=== PATIENT | female | born 1960 | race Caucasian/White ===

== ENCOUNTER 2018-02-25 08:12 | Emergency (ER) | payer OTHER ==
--- NOTE | 2018-02-25 11:48 | EKG ---
Test Date: 2018-02-25 Test Time: 08:40:04 Plant Breeder Scientist: GREGORIO MEASUREMENT RESULTS: Intervals: Rate: 65 LA: 152 QRSD: 84 QT: 436 QTc: 453 [place]: P: 46 LA: 152 QRS: 26 T: 39 INTERPRETIVE STATEMENTS: Normal sinus rhythm Normal ECG No previous ECG available for comparison Electronically Signed On 02-25-18 11:46:24 CDT by Herbert Segura
--- NOTE | 2018-02-25 12:44 | ER ---
Nurse's Notes [facility] Name: Josie Lizarraga Age: 57 yrs Sex: Female : 1960 Arrival Date: 02/25/2018 Time: 08:14 Bed External Waiting Private MD: Diagnosis: Type 2 diabetes mellitus;Chronic combined systolic (congestive) and diastolic (congestive) heart failure;Encounter for medication refill Assessment: 02/25 14:46 Reassessment: See Down time paper charting. ED Course: 08:14 Patient arrived in ED. mr 08:16 Ilya Collins PA is PHCP. jr8 08:16 Manpreet Turcios MD is Attending Physician. jr8 08:52 X-ray completed. Portable x-ray completed in exam room. Patient tolerated procedure jb2 well. 10:39 Ivonne Jerome, RN is Primary Nurse. Administered Medications: No medications were administered Outcome: 12:44 Discharge ordered by MD. jr8 14:20 Patient left the ED. Signatures: Ivonne Jerome, RN NADIA Keira Garcia mr MelendezChristopher jb2 Jennie Santoyo RN RN Ilya Collins PA PA jr8
--- NOTE | 2018-02-25 13:07 | RAD REPORT ---
EXAM DESCRIPTION: RAD - Chest Single View - 02/25/2018 8:53 am CLINICAL HISTORY: Shortness of breath, pneumonia Due to hospital power failure overnight and morning imaging study reports were delayed. COMPARISON: None. TECHNIQUE: AP portable chest image was obtained 0846 hours . FINDINGS: Lungs are clear. Heart and vasculature are normal. No measurable pleural effusion and no p neumothorax. No gross bony abnormality seen. No acute aortic findings suspected. IMPRESSION: No acute cardiopulmonary process.
[2018-02-25 14:55] LABS: ALT/SGPT 52 U/L (12-78); AST/SGOT 24 U/L (15-37); Albumin 3.6 g/dL (3.4-5.0); Alkaline Phosphatase 79 U/L (45-117); BUN Blood Urea Nitrogen 19 mg/dL (7-18); Bicarbonate 27 mmol/L (21-32); Bilirubin Direct 0.2 mg/dL (0-0.2); Bilirubin Total 0.6 mg/dL (0.2-1.0); Glucose Level 133 mg/dL (74-106); NT PRO-BNP 576 pg/mL (<125); Potassium 3.9 mmol/L (3.5-5.1); Protein, Total 6.7 g/dL (6.4-8.2); Sodium Level 144 mmol/L (136-145); Troponin (Emerg Dept Use Only) < 0.02 ng/mL (0.0-0.045)
[2018-02-25 15:55] LABS: Urine Blood NEGATIVE (NEG); Urine Glucose NEGATIVE (NEG); Urine Protein TRACE (NEG); Urine Specific Gravity >1.030 (1.005-1.030); Urine pH 5.5 (5.0-7.0)
[2018-02-25 15:56] LABS: Absolute Lymphocytes (CBC) 1.5 K/uL (0.7-4.9); Absolute Monocytes 0.4 K/uL (0.1-1.3); Absolute Neutrophil 2.9 K/uL (1.8-8.0); Basophils % 1.2 % (0-1.3); Hematocrit 37.8 % (36.0-45.0); Lymphocytes % 27.9 % (15.3-44.8); MCV 86.6 fL (80-100); MPV 9.2 fL (7.6-11.3); Monocytes % 7.9 % (3.3-12.3); RBC Red Blood Cell Count 4.37 M/uL (3.86-4.86)
== END 2018-02-25 14:20 | disposition home or self-care (01) ==
LOC: ER 08:12
DX: Z76.0 Encounter for issue of repeat prescription (principal); E11.9 Type 2 diabetes mellitus without complications; I50.9 Heart failure, unspecified; I10 Essential (primary) hypertension; R60.0 Localized edema
CPT/HCPCS: 36415; 71045; 80048; 80076; 81003; 83880; 84484; 85025; 93005

== ENCOUNTER 2018-06-11 23:59 | Emergency (ER) | payer OTHER ==
--- NOTE | 2018-06-12 03:45 | EDPHYS ---
Physician Documentation [facility] Name: Josie Lizarraga Age: 58 yrs Sex: Female : 1960 Arrival Date: 06/12/2018 Time: 00:06 Bed 6 Private MD: ED Physician Gonzales Giordano HPI: 06/12 00:39 This 58 yrs old Female presents to ER via Ambulatory with complaints of jmm Numbness Of Arm, and fingers. 00:39 Onset: The symptoms/episode began/occurred gradually, 3 month(s) ago. This is a 58 year jmm old female with a history of hypothyroidism that presents to the ED with pain to her neck and her right arm beginning approx 3 months ago. Patient states her PCP ordered an US to rule out DVT which was negative. Patient denies chest pain or shortness of breath. . Historical: - Allergies: 00:28 Codeine; lp1 - Home Meds: 00:28 Potassium Chloride Oral [Active]; Vitamin D 5,000 units Oral twice a day [Active]; Fish lp1 Oil 500 mg oral cpDR twice a day [Active]; levothyroxine 75 mcg tab 1 tab once daily [Active]; losartan 100 mg oral tab 1 tab once daily [Active]; carvedilol 3.125 mg oral tab 1 tab 2 times per day [Active]; trazodone 50 mg Oral tab daily [Active]; furosemide 40 mg Oral tab 1 tab once daily [Active]; atorvastatin 40 mg oral tab 1 tab once daily [Active]; aspirin 81 mg Oral TbEC 1 tab once daily [Active]; amitriptyline 10 mg Oral tab daily [Active]; clopidogrel 75 mg oral tab 1 tab once daily [Active]; amlodipine 10 mg tab 1 tab once daily [Active]; paroxetine HCl 40 mg oral tab 1 tab once daily [Active]; Toujeo SoloStar 300 unit/mL (1.5 mL) subcutaneous inpn 110 unit nightly [Active]; Victoza 2-Beni 0.6 mg/0.1 mL (18 mg/3 mL) subcutaneous pnij 1.8 unit nightly [Active]; gabapentin 300 mg oral cap daily [Active]; - PMHx: 00:28 Hypothyroidism; Hypertension; Hyperlipidemia; Diabetes - IDDM; lp1 - PSHx: 00:28 Heart stents; Tubal ligation; toe amputation; lp1 - Immunization history:: Adult Immunizations up to date. - Social history:: Smoking status: Patient/guardian denies using tobacco. - Ebola Screening: : No symptoms or risks identified at this time. ROS: 00:39 Constitutional: Negative for fever, chills, and weight loss, Cardiovascular: Negative jmm for chest pain, palpitations, and edema, Respiratory: Negative for shortness of breath, cough, wheezing, and pleuritic chest pain. 00:39 Neck: Positive for pain at rest. 00:39 MS/extremity: Positive for pain, paresthesias. 00:39 All other systems are negative. Exam: 00:39 Constitutional: This is a well developed, well nourished patient who is awake, alert, jmm and in no acute distress. Head/Face: atraumatic. Eyes: EOMI, no conjunctival erythema appreciated ENT: Moist Mucus Membranes Neck: Trachea midline, Supple Chest/axilla: Normal chest wall appearance and motion. Cardiovascular: Regular rate and rhythm. No edema appreciated Respiratory: Normal respirations, no respiratory distress appreciated Abdomen/GI: Non distended, soft 00:39 Neck: painful rotation to the right. 00:39 Musculoskeletal/extremity: full radial pulse, full director of recruiting strength, compartments are soft, NVI. 00:39 Skin: Appearance: Color: normal in color. 00:39 Neuro: Orientation: is normal, Mentation: is normal, Memory: is normal. 00:39 Psych: Behavior/mood is pleasant, cooperative. Vital Signs: 00:21 BP 181 / 88; Pulse 84; Resp 18; Temp 97.6(O); Pulse Ox 98% on R/A; Weight 99.79 kg; lp1 Height 5 ft. 5 in. (165.10 cm); Pain 8/10; 04:02 BP 164 / 92; Pulse 81; Resp 18; Pulse Ox 98% on R/A; lp1 00:21 Body Mass Index 36.61 (99.79 kg, 165.10 cm) lp1 MDM: 00:17 Patient medically screened. david 02:56 Data reviewed: vital signs, nurses notes. Transition of care: After a detail discussion jm of the patient's case, care is transferred to Gonzales Giordano MD. ED course: PE findings concerning for cervical radiculopathy. Full director of recruiting strength. No neuro deficits. I do not suspect carotid dissection. Symptoms have been chronic. . 03:04 Transition of care: After a detail discussion of the patient's case, care is crystal transferred to Gonzales Giordano MD. 06/12 03:49 Order name: Glucose, Ancillary Testing EDMS 06/12 00:36 Order name: CT C Spine [facility] 06/12 03:05 Order name: EKG - Nurse/Tech; Complete Time: 03:30 david 06/12 03:42 Order name: Blood Glucose Level; Complete Time: 03:51 david Administered Medications: 03:53 Not Given (Route change): Decadron - Dexamethasone 10 mg IVP once lp1 03:57 Drug: Decadron 10 mg Route: IM; Site: left deltoid; ca1 04:05 Follow up: Response: No adverse reaction; Medication administered at discharge. lp1 03:58 Drug: TORadol 60 mg Route: IM; Site: right deltoid; ca1 04:05 Follow up: Response: Medication administered at discharge. lp1 Point of Care Testing: Blood Glucose: 03:51 Blood Glucose: 283 mg/dL; lp1 Ranges: Critical Glucose Levels:Adult <50 mg/dl or >400 mg/dl <40 mg/dl or >180 mg/dl Disposition: 07:35 Co-signature as Attending Physician, Gonzales Giordano MD I agree with the assessment and [facility] plan of care. Disposition: 06/12/18 03:44 Discharged to Home. Impression: Radiculopathy, cervical region, Essential (primary) hypertension, Type 2 diabetes mellitus. - Condition is Stable. - Discharge Instructions: Cervical Radiculopathy, Type 2 Diabetes Mellitus, Diagnosis, Adult, Hypertension, Hypertension, [id number], How to Take Your Blood Pressure, [id number], Type 2 Diabetes Mellitus, Diagnosis, Adult, [id number], Cervical Radiculopathy, Mnlc-[id number], Managing Your Hypertension, Radicular Pain, Type 2 Diabetes Mellitus, Self Care, Adult, Type 2 Diabetes Mellitus, Self Care, Adult, [id number]-[id number]. - Prescriptions for Medrol (Beni) 4 mg Oral Tablets, Dose Pack - take 1 tablet by ORAL route as directed - follow package instructions; 1 packet. Motrin IB 200 mg Oral Tablet - take 2 tablet by ORAL route every 6 hours As needed as needed with food; 30 tablet. - Medication Reconciliation Form, Thank You Letter, Antibiotic Education, Prescription Opioid Use form. - Follow up: Private Physician; When: 2 - 3 days; Reason: Recheck today's complaints, Continuance of care, Re-evaluation by your physician. - Problem is new. - Symptoms have improved. Signatures: Dispatcher [employer] EDMS Gonzales Giordano MD MD cha Mickail, Joel, PA PA jmm Pena, Laura, RN RN lp1 Jes Kiser RN RN ca1 Corrections: (The following items were deleted from the chart) 04:08 03:44 06/12/2018 03:44 Discharged to Home. Impression: Radiculopathy, cervical region; lp1 Essential (primary) hypertension; Type 2 diabetes mellitus. Condition is Stable. Forms are Medication Reconciliation Form, Thank You Letter, Antibiotic Education, Prescription Opioid Use. Follow up: Private Physician; When: 2 - 3 days; Reason: Recheck today's complaints, Continuance of care, Re-evaluation by your physician. Problem is new. Symptoms have improved. david
--- NOTE | 2018-06-12 03:45 | ER ---
Nurse's Notes [facility] Name: Josie Lizarraga Age: 58 yrs Sex: Female : 1960 Arrival Date: 06/12/2018 Time: 00:06 Bed 6 Private MD: Diagnosis: Radiculopathy, cervical region;Essential (primary) hypertension;Type 2 diabetes mellitus Presentation: 06/12 00:19 Presenting complaint: Patient states: Numbness and pain to right arm since March; lp1 States pain has been so severe that she has not been able to sleep in 3 days; States Ultrasound done in May, has not followed up with Neurology yet. Transition of care: patient was not received from another setting of care. Onset of symptoms was June 12, 2018. Risk Assessment: Do you want to hurt yourself or someone else? Patient reports no desire to harm self or others. Initial Sepsis Screen: Does the patient meet any 2 criteria? No. Patient's initial sepsis screen is negative. Does the patient have a suspected source of infection? No. Patient's initial sepsis screen is negative. Care prior to arrival: None. 00:19 Method Of Arrival: Ambulatory lp1 00:19 Acuity: FRACISCO 3 lp1 Historical: - Allergies: 00:28 Codeine; lp1 - Home Meds: 00:28 Potassium Chloride Oral [Active]; Vitamin D 5,000 units Oral twice a day [Active]; Fish lp1 Oil 500 mg oral cpDR twice a day [Active]; levothyroxine 75 mcg tab 1 tab once daily [Active]; losartan 100 mg oral tab 1 tab once daily [Active]; carvedilol 3.125 mg oral tab 1 tab 2 times per day [Active]; trazodone 50 mg Oral tab daily [Active]; furosemide 40 mg Oral tab 1 tab once daily [Active]; atorvastatin 40 mg oral tab 1 tab once daily [Active]; aspirin 81 mg Oral TbEC 1 tab once daily [Active]; amitriptyline 10 mg Oral tab daily [Active]; clopidogrel 75 mg oral tab 1 tab once daily [Active]; amlodipine 10 mg tab 1 tab once daily [Active]; paroxetine HCl 40 mg oral tab 1 tab once daily [Active]; Toujeo SoloStar 300 unit/mL (1.5 mL) subcutaneous inpn 110 unit nightly [Active]; Victoza 2-Beni 0.6 mg/0.1 mL (18 mg/3 mL) subcutaneous pnij 1.8 unit nightly [Active]; gabapentin 300 mg oral cap daily [Active]; - PMHx: 00:28 Hypothyroidism; Hypertension; Hyperlipidemia; Diabetes - IDDM; lp1 - PSHx: 00:28 Heart stents; Tubal ligation; toe amputation; lp1 - Immunization history:: Adult Immunizations up to date. - Social history:: Smoking status: Patient/guardian denies using tobacco. - Ebola Screening: : No symptoms or risks identified at this time. Screenin:30 Abuse screen: Denies threats or abuse. Denies injuries from another. Nutritional lp1 screening: No deficits noted. Tuberculosis screening: No symptoms or risk factors identified. Fall Risk None identified. Assessment: 00:28 General: Appears in no apparent distress. Behavior is appropriate for age. Pain: lp1 Complains of pain in right arm, posterior neck Pain currently is 8 out of 10 on a pain scale. Quality of pain is described as tingling. Neuro: Level of Consciousness is awake, alert, obeys commands, Oriented to person, place, time, situation, General Ii Farmworker are equal bilaterally Moves all extremities. Full function Gait is steady, Speech is normal, Facial symmetry appears normal, Tingling in right arm Numbness in right arm Reports numbness in right arm. Cardiovascular: Patient's skin is warm and dry. Respiratory: Respiratory effort is even, unlabored. GI: No deficits noted. : No deficits noted. EENT: No deficits noted. Derm: Skin is pink, warm \T\ dry. Musculoskeletal: Range of motion: intact in all extremities. 01:30 Reassessment: Patient appears in no apparent distress at this time. Patient and/or lp1 family updated on plan of care and expected duration. Pain level reassessed. Patient is alert, oriented x 3, equal unlabored respirations, skin warm/dry/pink. Patient aware of waiting for CT results. 03:30 Reassessment: Patient appears in no apparent distress at this time. Patient is alert, lp1 oriented x 3, equal unlabored respirations, skin warm/dry/pink. Patient aware of waiting for CT results;. Vital Signs: 00:21 BP 181 / 88; Pulse 84; Resp 18; Temp 97.6(O); Pulse Ox 98% on R/A; Weight 99.79 kg; lp1 Height 5 ft. 5 in. (165.10 cm); Pain 8/10; 04:02 BP 164 / 92; Pulse 81; Resp 18; Pulse Ox 98% on R/A; lp1 00:21 Body Mass Index 36.61 (99.79 kg, 165.10 cm) lp1 ED Course: 00:06 Patient arrived in ED. 00:13 Jasper Cantu PA is PHCP. [facility] 00:13 Gonzales Giordano MD is Attending Physician. [facility] 00:19 Kamla Quintanilla, RN is Primary Nurse. lp1 00:21 Triage completed. lp1 00:21 Arm band placed on left wrist. lp1 00:30 Patient has correct armband on for positive identification. lp1 01:17 CT C Spine In Process Unspecified. EDMS 01:24 CT completed. Patient tolerated procedure well. Patient moved to CT via wheelchair. Patient moved back from CT. 02:01 No provider procedures requiring assistance completed. Patient did not have IV access lp1 during this emergency room visit. Administered Medications: 03:53 Not Given (Route change): Decadron - Dexamethasone 10 mg IVP once lp1 03:57 Drug: Decadron 10 mg Route: IM; Site: left deltoid; ca1 04:05 Follow up: Response: No adverse reaction; Medication administered at discharge. lp1 03:58 Drug: TORadol 60 mg Route: IM; Site: right deltoid; ca1 04:05 Follow up: Response: Medication administered at discharge. lp1 Point of Care Testing: Blood Glucose: 03:51 Blood Glucose: 283 mg/dL; lp1 Ranges: Outcome: 03:44 Discharge ordered by . [facility] 04:08 Discharged to home ambulatory. lp1 04:08 Condition: good 04:08 Discharge instructions given to patient, Instructed on discharge instructions, follow up and referral plans. medication usage, Demonstrated understanding of instructions, follow-up care, medications, Prescriptions given X 2. 04:08 Patient left the ED. lp1 Signatures: Dispatcher [employer] EDMS Gonzales Giordano MD MD cha Mickail, Joel, PA PA [facility] Bobbi Jaquez Ervin Kamla Quintanilla, NADIA RN lp1 Acob, Jes, RN RN ca1
[2018-06-12] MEDS ORDERED: KETOROLAC 30 MG/ML INJ ONE (03:58)
[2018-06-12] MEDS ORDERED: DEXAMETHASONE 10 MG/ML VIAL ONE (03:58)
--- NOTE | 2018-06-12 08:20 | RAD REPORT ---
EXAM DESCRIPTION: CT - C Spine Wo Con - 06/12/2018 6:29 am CLINICAL HISTORY: Right arm numbness COMPARISON: None. TECHNIQUE: Computed axial tomography of the cervical spine were obtained with sagittal and coronal r econstruction images generated and reviewed. Preliminary report generated by virtual radiologic and [employer] prior to dictation All CT scans are performed using dose optimization technique as appropriate and may include automated exposure control or mA/KV adjustment according to patient size. FINDINGS: A cervical fracture is not seen. Disc bulge, facet hypertrophy and osteophytes C5-6 resulting in mild to moderate narrowing of the lef t neural foramina No dislocation Left carotid stent IMPRESSION: A cervical fracture is not seen. Spondylosis resulting in mild to moderate left foraminal stenosis at C5-6. If the patient continues have symptoms to suggest spinal cord/spinal canal pathology then MRI would b e recommended.
== END 2018-06-12 04:08 | disposition home or self-care (01) ==
LOC: ER 23:59
DX: M54.12 Radiculopathy, cervical region (principal); I10 Essential (primary) hypertension; E11.9 Type 2 diabetes mellitus without complications; E03.9 Hypothyroidism, unspecified; E78.5 Hyperlipidemia, unspecified; Z79.82 Long term (current) use of aspirin; Z79.4 Long term (current) use of insulin; Z88.5 Allergy status to narcotic agent; Z95.818 Presence of other cardiac implants and grafts
CPT/HCPCS: 72125; 82962; 96372; 99284; J1100

== ENCOUNTER 2018-06-12 06:38 | Emergency (ER) | payer OTHER ==
[2018-06-12] MEDS ORDERED: NA CHLORIDE 0.9% 1,000 ML ONE (07:13)
[2018-06-12] MEDS ORDERED: LORazepam 2 MG/ML VIAL ONE (07:13)
--- NOTE | 2018-06-12 08:26 | ER ---
Nurse's Notes [facility] Name: Josie Lizarraga Age: 58 yrs Sex: Female : 1960 Arrival Date: 06/12/2018 Time: 06:45 Bed 5 Private MD: Diagnosis: Adverse effect of steroids Presentation: 06/12 06:46 Presenting complaint: Patient states: "I think I'm having an allergic reaction to the lp1 meds you gave me"; States waking up from sleep with shortness of breath and heart pounding; received medications prior to discharge from ED visit this morning. Transition of care: patient was not received from another setting of care. Onset of symptoms was June 12, 2018 at 06:15. Risk Assessment: Do you want to hurt yourself or someone else? Patient reports no desire to harm self or others. Initial Sepsis Screen: Does the patient meet any 2 criteria? No. Patient's initial sepsis screen is negative. Does the patient have a suspected source of infection? No. Patient's initial sepsis screen is negative. Care prior to arrival: None. 06:46 Method Of Arrival: Wheelchair lp1 06:46 Acuity: FRACISCO 3 lp1 Triage Assessment: 06:55 General: Appears in no apparent distress. Behavior is anxious. Neuro: Level of lp1 Consciousness is awake, alert, obeys commands. Respiratory: Airway is patent Respiratory effort is even. Historical: - Allergies: 06:52 Codeine; lp1 - Home Meds: 06:52 amitriptyline 10 mg Oral tab daily [Active]; amlodipine 10 mg tab 1 tab once daily lp1 [Active]; aspirin 81 mg Oral TbEC 1 tab once daily [Active]; atorvastatin 40 mg Oral tab 1 tab once daily [Active]; carvedilol 3.125 mg Oral tab 1 tab 2 times per day [Active]; clopidogrel 75 mg Oral tab 1 tab once daily [Active]; Fish Oil 500 mg Oral cpDR twice a day [Active]; furosemide 40 mg Oral tab 1 tab once daily [Active]; gabapentin 300 mg Oral cap daily [Active]; levothyroxine 75 mcg tab 1 tab once daily [Active]; losartan 100 mg Oral tab 1 tab once daily [Active]; paroxetine HCl 40 mg Oral tab 1 tab once daily [Active]; Potassium Chloride Oral [Active]; Toujeo SoloStar 300 unit/mL (1.5 mL) subcutaneous inpn 110 unit nightly [Active]; trazodone 50 mg Oral tab daily [Active]; Victoza 2-Beni 0.6 mg/0.1 mL (18 mg/3 mL) subcutaneous pnij 1.8 unit nightly [Active]; Vitamin D 5,000 units Oral twice a day [Active]; - PMHx: 06:52 Diabetes - IDDM; Hyperlipidemia; Hypertension; Hypothyroidism; lp1 - PSHx: 06:52 Heart stents; Tubal ligation; toe amputation; lp1 - Immunization history:: Adult Immunizations up to date. - Social history:: Smoking status: Patient/guardian denies using tobacco. - Ebola Screening: : No symptoms or risks identified at this time. Screenin:53 Abuse screen: Denies threats or abuse. Denies injuries from another. Nutritional lp1 screening: No deficits noted. Tuberculosis screening: No symptoms or risk factors identified. Fall Risk None identified. Assessment: 07:00 General: Appears in no apparent distress. uncomfortable, Behavior is cooperative, hj appropriate for age, anxious. Pain: Denies pain. Neuro: Level of Consciousness is awake, alert, obeys commands, Oriented to person, place, time, situation, Appropriate for age. Cardiovascular: Capillary refill < 3 seconds Patient's skin is warm and dry. Respiratory: Airway is patent Respiratory effort is even, unlabored, Respiratory pattern is regular, symmetrical. GI: No signs and/or symptoms were reported involving the gastrointestinal system. : No signs and/or symptoms were reported regarding the genitourinary system. EENT: No signs and/or symptoms were reported regarding the EENT system. Derm: No signs and/or symptoms reported regarding the dermatologic system. Musculoskeletal: No signs and/or symptoms reported regarding the musculoskeletal system. 07:22 Reassessment: states" i can get somebody to pick me up". hj 09:01 Reassessment: pt states, i called my daughter Kymberly to pick me up; D/C instructions hj given; will wait at the lobby for the ride;. Vital Signs: 06:47 BP 191 / 94; Pulse 90; Resp 20; Temp 97.8(O); Pulse Ox 98% on R/A; lp1 07:38 BP 164 / 84; Pulse 89; Resp 18; Pulse Ox 98% on 2 lpm NC; hj 09:02 BP 162 / 82; Pulse 85; Resp 18; Pulse Ox 100% on R/A; hj ED Course: 06:45 Patient arrived in ED. ds1 06:47 Triage completed. lp1 06:48 Arm band placed on left wrist. lp1 06:49 Ilya Collins PA is PHCP. jr8 06:49 Gonzales Giordano MD is Attending Physician. jr8 06:52 Patient has correct armband on for positive identification. Pulse ox on. NIBP on. lp1 06:57 Inserted saline lock: 20 gauge in left antecubital area, using aseptic technique. Blood ag4 collected. 06:59 Shailesh Bush, RN is Primary Nurse. hj 09:03 No provider procedures requiring assistance completed. IV discontinued, intact, hj bleeding controlled, No redness/swelling at site. Pressure dressing applied. Administered Medications: 07:00 Drug: NS 0.9% 1000 ml Route: IV; Rate: 1000 ml; Site: left antecubital; hj 08:53 Follow up: IV Status: Completed infusion; IV Intake: 1000ml hj 07:00 Drug: Ativan 1 mg Route: IVP; Site: left antecubital; hj 07:39 Follow up: Response: No adverse reaction; Anxiety decreased hj Intake: 08:53 IV: 1000ml; Total: 1000ml. hj Outcome: 08:25 Discharge ordered by . jr8 09:03 Discharged to home ambulatory, with family. hj 09:03 Condition: stable 09:03 Discharge instructions given to patient, Instructed on discharge instructions, follow up and referral plans. Demonstrated understanding of instructions, follow-up care. 09:03 Patient left the ED. hj Signatures: Aleja Michelle ds1 Kamla Quintanilla, RN RN lp1 Ilya Collins PA PA jr8 Shailesh Bush, Omar Briceno RN ag4
--- NOTE | 2018-06-12 08:27 | EDPHYS ---
Physician Documentation [facility] Name: Josie Lizarraga Age: 58 yrs Sex: Female : 1960 Arrival Date: 06/12/2018 Time: 06:45 Bed 5 Private MD: ED Physician Gonzales Giordano HPI: 06/12 07:33 This 58 yrs old Female presents to ER via Wheelchair with complaints of jr8 Allergic Reaction. 07:33 Patient was seen earlier in ED for right arm pain. Was given a steroid and Toradol. gerem[place] fine upon discharge and went home to get some sleep. Stated that she woke up suddenly with palpitation feeling and shortness of breath. Came back to ED worried that she was having allergic reaction. Patient upon arrival in no acute distress. Severity of symptoms: At their worst the symptoms were mild in the emergency department the symptoms are unchanged. The patient has not experienced similar symptoms in the past. The patient has been recently seen by a physician:. Historical: - Allergies: 06:52 Codeine; lp1 - Home Meds: 06:52 amitriptyline 10 mg Oral tab daily [Active]; amlodipine 10 mg tab 1 tab once daily lp1 [Active]; aspirin 81 mg Oral TbEC 1 tab once daily [Active]; atorvastatin 40 mg Oral tab 1 tab once daily [Active]; carvedilol 3.125 mg Oral tab 1 tab 2 times per day [Active]; clopidogrel 75 mg Oral tab 1 tab once daily [Active]; Fish Oil 500 mg Oral cpDR twice a day [Active]; furosemide 40 mg Oral tab 1 tab once daily [Active]; gabapentin 300 mg Oral cap daily [Active]; levothyroxine 75 mcg tab 1 tab once daily [Active]; losartan 100 mg Oral tab 1 tab once daily [Active]; paroxetine HCl 40 mg Oral tab 1 tab once daily [Active]; Potassium Chloride Oral [Active]; Toujeo SoloStar 300 unit/mL (1.5 mL) subcutaneous inpn 110 unit nightly [Active]; trazodone 50 mg Oral tab daily [Active]; Victoza 2-Beni 0.6 mg/0.1 mL (18 mg/3 mL) subcutaneous pnij 1.8 unit nightly [Active]; Vitamin D 5,000 units Oral twice a day [Active]; - PMHx: 06:52 Diabetes - IDDM; Hyperlipidemia; Hypertension; Hypothyroidism; lp1 - PSHx: 06:52 Heart stents; Tubal ligation; toe amputation; lp1 - Immunization history:: Adult Immunizations up to date. - Social history:: Smoking status: Patient/guardian denies using tobacco. - Ebola Screening: : No symptoms or risks identified at this time. ROS: 07:35 Eyes: Negative for injury, pain, redness, and discharge, ENT: Negative for injury, jr8 pain, and discharge, Neck: Negative for injury, pain, and swelling, Abdomen/GI: Negative for abdominal pain, nausea, vomiting, diarrhea, and constipation, Back: Negative for injury and pain, MS/Extremity: Negative for injury and deformity, Skin: Negative for injury, rash, and discoloration, Neuro: Negative for headache, weakness, numbness, tingling, and seizure. 07:35 Cardiovascular: Positive for palpitations, Negative for chest pain, edema, orthopnea. 07:35 Respiratory: Positive for shortness of breath, Negative for cough, dyspnea on exertion, sputum production, wheezing. Exam: 07:35 Eyes: Pupils equal round and reactive to light, extra-ocular motions intact. Lids and jr8 lashes normal. Conjunctiva and sclera are non-icteric and not injected. Cornea within normal limits. Periorbital areas with no swelling, redness, or edema. ENT: Nares patent. No nasal discharge, no septal abnormalities noted. Tympanic membranes are normal and external auditory canals are clear. Oropharynx with no redness, swelling, or masses, exudates, or evidence of obstruction, uvula midline. Mucous membranes moist. Neck: Trachea midline, no thyromegaly or masses palpated, and no cervical lymphadenopathy. Supple, full range of motion without nuchal rigidity, or vertebral point tenderness. No Meningismus. Cardiovascular: Regular rate and rhythm with a normal S1 and S2. No gallops, murmurs, or rubs. Normal PMI, no JVD. No pulse deficits. Respiratory: Lungs have equal breath sounds bilaterally, clear to auscultation and percussion. No rales, rhonchi or wheezes noted. No increased work of breathing, no retractions or nasal flaring. Abdomen/GI: Soft, non-tender, with normal bowel sounds. No distension or tympany. No guarding or rebound. No evidence of tenderness throughout. Back: No spinal tenderness. No costovertebral tenderness. Full range of motion. Skin: Warm, dry with normal turgor. Normal color with no rashes, no lesions, and no evidence of cellulitis. MS/ Extremity: Pulses equal, no cyanosis. Neurovascular intact. Full, normal range of motion. Neuro: Awake and alert, GCS 15, oriented to person, place, time, and situation. Cranial nerves II-XII grossly intact. Motor strength 5/5 in all extremities. Sensory grossly intact. Cerebellar exam normal. Normal gait. Vital Signs: 06:47 BP 191 / 94; Pulse 90; Resp 20; Temp 97.8(O); Pulse Ox 98% on R/A; lp1 07:38 BP 164 / 84; Pulse 89; Resp 18; Pulse Ox 98% on 2 lpm NC; hj 09:02 BP 162 / 82; Pulse 85; Resp 18; Pulse Ox 100% on R/A; hj MDM: 06:49 Patient medically screened. [facility] 08:24 Data reviewed: vital signs, nurses notes, and as a result, I will discharge patient. [facility] Data interpreted: Pulse oximetry: on room air is 98 %. Interpretation: normal. Counseling: I had a detailed discussion with the patient and/or guardian regarding: the historical points, exam findings, and any diagnostic results supporting the discharge/admit diagnosis, the need for outpatient follow up, a family practitioner, to return to the emergency department if symptoms worsen or persist or if there are any questions or concerns that arise at home. Response to treatment: the patient's symptoms have resolved after treatment, patient is well hydrated. Administered Medications: 07:00 Drug: NS 0.9% 1000 ml Route: IV; Rate: 1000 ml; Site: left antecubital; hj 08:53 Follow up: IV Status: Completed infusion; IV Intake: 1000ml 07:00 Drug: Ativan 1 mg Route: IVP; Site: left antecubital; hj 07:39 Follow up: Response: No adverse reaction; Anxiety decreased hj Disposition: 09:37 Co-signature as Attending Physician, Gonzales Giordano MD I agree with the assessment and david plan of care. Disposition: 06/12/18 08:25 Discharged to Home. Impression: Adverse effect of steroids. - Condition is Stable. - Medication Reconciliation Form, Thank You Letter, Antibiotic Education, Prescription Opioid Use form. - Follow up: Private Physician; When: 2 - 3 days; Reason: Recheck today's complaints, Continuance of care, Re-evaluation by your physician. - Problem is new. - Symptoms have improved. Signatures: Gonzales Giordano MD MD cha Pena, Laura RN RN lp1 Ilya Collins PA PA jr8 Shailesh Bush RN RN hj Corrections: (The following items were deleted from the chart) 07:36 07:33 Patient was seen earlier in ED for right wrist pain. Was given steroid and jr8 Toradol. [place] fine upon discharge and went home to get some sleep. Stated that she woke up suddenly with palpitation feeling and shortness of breath. Came back to ED worried that she was having allergic reaction . jr8 09:03 08:25 06/12/2018 08:25 Discharged to Home. Impression: Adverse effect of steroids. hj Condition is Stable. Forms are Medication Reconciliation Form, Thank You Letter, Antibiotic Education, Prescription Opioid Use. Follow up: Private Physician; When: 2 - 3 days; Reason: Recheck today's complaints, Continuance of care, Re-evaluation by your physician. Problem is new. Symptoms have improved. jr8
== END 2018-06-12 09:03 | disposition home or self-care (01) ==
LOC: ER 06:38
DX: R00.2 Palpitations (principal); T38.0X5A Adverse effect of glucocorticoids and synthetic analogues, initial encounter; I10 Essential (primary) hypertension; E03.9 Hypothyroidism, unspecified; E78.5 Hyperlipidemia, unspecified; E11.9 Type 2 diabetes mellitus without complications; Z79.82 Long term (current) use of aspirin; Z79.4 Long term (current) use of insulin; Z88.5 Allergy status to narcotic agent; Z95.818 Presence of other cardiac implants and grafts
CPT/HCPCS: 96361; 96374; 99284; J7030

== ENCOUNTER 2018-10-31 11:09 | Emergency (ER) | payer OTHER ==
--- OUTSIDE RECORDS SUMMARY | 2018-10-31 11:11 | XMS REPORT ---
:1960 Author Organization [facility] Address [address] [place] [address] Care Team Providers Name Role Phone Unavailable Unavailable Unavailable Problems This patient has no known problems. Allergies, Adverse Reactions, Alerts This patient has no known allergies or adverse reactions. Medications This patient has no known medications.
--- OUTSIDE RECORDS SUMMARY | 2018-10-31 11:12 | XMS REPORT ---
:1960 Author Organization [employer] Care Team Providers Name Role Phone RickieHuan richmonden Provider Role Unavailable Allergies No Known Allergies Problems Problem Type Condition Code Onset Dates Condition Status Problem Hypothyroidism, unspecified type E03.9 Active Problem Depression with anxiety F41.8 Active Problem Hyperlipidemia, unspecified E78.5 Active hyperlipidemia type Problem Uncontrolled type 2 diabetes E11.65 Active mellitus with hyperglycemia Problem Subcutaneous mass R22.9 Active Problem Right arm pain M79.601 Active Problem Right arm numbness R20.0 Active Problem Hypertension, unspecified type I10 Active Problem Hypothyroidism (acquired) E03.9 Active Problem Diabetic peripheral neuropathy E11.42 Active Problem Diarrhea, unspecified type R19.7 Active Medications No Known Medications Results No Known Results Summary Purpose [employer] Submission
--- OUTSIDE RECORDS SUMMARY | 2018-10-31 11:12 | XMS REPORT ---
:1960 Author Organization [employer] Care Team Providers Name Role Phone Meli Guajardo Provider Role Unavailable Allergies, Adverse Reactions, Alerts Substance Reaction Event Type codeine shortness of breath Drug Allergy Problems Problem Type Condition Code Onset Dates Condition Status Problem Hypothyroidism (acquired) E03.9 Active Problem History of carotid atherosclerosis Z86.79 Active Problem Uncontrolled type 2 diabetes E11.65 Active mellitus with hyperglycemia Problem Subcutaneous mass R22.9 Active Assessment Obesity (BMI 30-39.9) E66.9 Active Problem Right arm pain M79.601 Active Assessment Diabetic peripheral neuropathy E11.42 Active Assessment Left hand pain M79.642 Active Problem Right arm numbness R20.0 Active Problem Left hand pain M79.642 Active Problem Obesity (BMI 30-39.9) E66.9 Active Problem Diabetic peripheral neuropathy E11.42 Active Problem Diarrhea, unspecified type R19.7 Active Assessment Uncontrolled type 2 diabetes E11.65 Active mellitus with hyperglycemia Assessment History of carotid atherosclerosis Z86.79 Active Assessment Hypothyroidism, unspecified type E03.9 Active Assessment Hyperlipidemia, unspecified E78.5 Active hyperlipidemia type Problem Hypothyroidism, unspecified type E03.9 Active Problem Hyperlipidemia, unspecified E78.5 Active hyperlipidemia type Assessment Hypertension, unspecified type I10 Active Problem Hypertension, unspecified type I10 Active Assessment Depression with anxiety F41.8 Active Problem Depression with anxiety F41.8 Active Medications Medication Code Code Instructions Start End Status Dosage System Date Date Victoza [facility] 88244424109 18 MG/3ML December Active 1.8 mg Subcutaneous Once 21, daily in evening 2019 Atorvastatin [place] 40614283477 40 MG Orally Once Active 1 tablet Calcium a day in evening Paroxetine HCl ND 79895929521 40 MG Orally Once Active 1 tablet a day in the morning Carvedilol [facility] 83422447104 3.125 MG Orally Active 1 tablet Twice daily Creon [facility] 98276823001 21808 UNIT Orally May 18August Active as 2 capsules with 2017 each meal and 1 2018 capsule with each snack x2 Potassium [facility] 14021378734 20 MEQ Orally December Active 1 capsule Chloride Once daily (Take , with Furosemide) 2018 Amlodipine [facility] 64363719393 10 MG Orally Once Active 1 tablet Besylate a day Aspirin 81 [facility] 08540174813 81 MG Orally Once Active 1 tablet a day Furosemide [facility] 79498197419 40 MG Orally Once Active 1 tablet a day as needed for swelling (Take with KCl) Losartan [facility] 31112742750 100 mg Orally Active 1 tablet Potassium Once a day Vitamin D-3 [facility] 08016063334 5000 UNIT Orally Active 1 tablet twice a day Trazodone HCl [facility] 56701497220 50 MG Orally Once Active 1 tablet a day at bedtime as needed for sleep Touvlad IsabeloStar [facility] 40590633342 300u/ml December Active 110 units subcutaneously , Once daily at 2018 bedtime Viberzi [facility] 92561922127 75 MG Orally Apr 29August Active 1 tablet Twice a day for 2017, with food diarrhea 2018 Amitriptyline [facility] 24160610388 10 MG Orally Once Active 1 tablet HCl a day Gabapentin [facility] 84017628909 300 MG Orally 2 Apr 29, Active as capsules in am 2017 directed and 1 capsule in pm Clopidogrel [facility] 94293737842 75 MG Orally Once Active 1 tablet Bisulfate a day Fish Oil [facility] 85783417494 500 MG Orally Active 1 capsule Twice a day Levothyroxine [facility] 66151125712 75 MCG Orally Active 1 tablet Sodium Once a day on an empty stomach in the morning Results No Known Results Summary Purpose [employer]ClinicalWorks Submission
--- OUTSIDE RECORDS SUMMARY | 2018-10-31 11:12 | XMS REPORT ---
:1960 Author Organization [employer] Care Team Providers Name Role Phone Meil Guajardo Provider Role Unavailable Allergies No Known Allergies Problems Problem Type Condition Code Onset Dates Condition Status Problem Hypothyroidism (acquired) E03.9 Active Problem History of carotid atherosclerosis Z86.79 Active Problem Uncontrolled type 2 diabetes E11.65 Active mellitus with hyperglycemia Problem Hypothyroidism, unspecified type E03.9 Active Problem Hyperlipidemia, unspecified E78.5 Active hyperlipidemia type Problem Hypertension, unspecified type I10 Active Problem Depression with anxiety F41.8 Active Problem Subcutaneous mass R22.9 Active Problem Right arm pain M79.601 Active Problem Right arm numbness R20.0 Active Problem Left hand pain M79.642 Active Problem Obesity (BMI 30-39.9) E66.9 Active Problem Diabetic peripheral neuropathy E11.42 Active Problem Diarrhea, unspecified type R19.7 Active Medications No Known Medications Results No Known Results Summary Purpose [employer] Submission
--- OUTSIDE RECORDS SUMMARY | 2018-10-31 11:12 | XMS REPORT ---
:1960 Author Organization [employer] Care Team Providers Name Role Phone Meli Guajardo Provider Role Unavailable Allergies No Known Allergies Problems Problem Type Condition Code Onset Dates Condition Status Problem Hypothyroidism, unspecified type E03.9 Active Problem Depression with anxiety F41.8 Active Problem Hyperlipidemia, unspecified E78.5 Active hyperlipidemia type Assessment Diarrhea, unspecified type R19.7 Active Problem Uncontrolled type 2 diabetes E11.65 Active mellitus with hyperglycemia Problem Subcutaneous mass R22.9 Active Problem Right arm pain M79.601 Active Problem Right arm numbness R20.0 Active Problem Hypertension, unspecified type I10 Active Problem Hypothyroidism (acquired) E03.9 Active Problem Diabetic peripheral neuropathy E11.42 Active Problem Diarrhea, unspecified type R19.7 Active Medications Medication Code Code Instructions Start End Status Dosage System Date Date Carvedilol [facility] 56649940870 3.125 MG Orally Active 1 tablet Twice daily [place] IsabeloStar [facility] 07036117296 300u/ml December Active 110 units subcutaneously 21, Once daily at 2019 bedtime Furosemide ND 47514366229 40 MG Orally Once Active 1 tablet a day as needed for swelling (Take with KCl) Levothyroxine ND 71321388852 75 MCG Orally Active 1 tablet Sodium Once a day on an empty stomach in the morning Aspirin 81 [facility] 89476447642 81 MG Orally Once Active 1 tablet a day Viberzi [facility] 50816225384 75 MG Orally Apr 29August Active 1 tablet Twice a day for 2017 21, with food diarrhea 2018 Paroxetine HCl ND 96421978583 40 MG Orally Once Active 1 tablet a day in the morning Potassium ND 13009997624 20 MEQ Orally December Active 1 capsule Chloride Once daily (Take 21, with Furosemide) 2018 Amitriptyline [facility] 79679659269 10 MG Orally Once Active 1 tablet HCl a day Vitamin D-3 ND 67897673574 5000 UNIT Orally Active 1 tablet twice a day Creon ND 10393716498 08246 UNIT Orally May 18August Active as 2 capsules with 2018 10, directed each meal and 1 2018 capsule with each snack x2 Clopidogrel [facility] 23301560129 75 MG Orally Once Active 1 tablet Bisulfate a day Gabapentin [facility] 99038105565 300 MG Orally Apr 29, Active 1 capsule Once daily in 2017 evening for pain Losartan [facility] 64001768698 100 mg Orally Active 1 tablet Potassium Once a day Atorvastatin [facility] 62991419910 40 MG Orally Once Active 1 tablet Calcium a day in evening Trazodone HCl [facility] 43170593051 50 MG Orally Once Active 1 tablet a day at bedtime as needed for sleep Victoza [facility] 14737992852 18 MG/3ML December Active 1.8 mg Subcutaneous Once 21, daily in evening 2019 Amlodipine [facility] 81187765552 10 MG Orally Once Active 1 tablet Besylate a day Fish Oil [facility] 53406846051 500 MG Orally Active 1 capsule Twice a day Results No Known Results Summary Purpose [employer]ClinicalWorks Submission
--- OUTSIDE RECORDS SUMMARY | 2018-10-31 11:12 | XMS REPORT ---
:1960 Author Organization [employer] Care Team Providers Name Role Phone Huan Guajardoen Provider Role Unavailable Allergies No Known Allergies [...]
--- NOTE | 2018-10-31 12:16 | EDPHYS ---
Physician Documentation [facility] Name: Josie Lizarraga Age: 58 yrs Sex: Female : 1960 Arrival Date: 10/31/2018 Time: 11:11 Bed 16 Private MD: ED Physician Gonzales Giordano HPI: 10/31 12:12 This 58 yrs old Female presents to ER via Ambulatory with complaints of Hand jr8 Pain, Wrist Pain. 12:12 The patient or guardian reports decreased range of motion, pain. The complaints affect jr8 the left hand diffusely. Context: The problem was sustained at home, resulted from an unknown cause. Onset: The symptoms/episode began/occurred acutely, last night. Modifying factors: The symptoms are alleviated by nothing, the symptoms are aggravated by movement. Associated signs and symptoms: The patient has no apparent associated signs or symptoms. Severity of symptoms: At their worst the symptoms were mild, in the emergency department the symptoms are unchanged. The patient has not experienced similar symptoms in the past. The patient has not recently seen a physician. Patient stated that she woke up with pain to left hand that has been getting worse throughout the day. Denies trauma to hand . Historical: - Allergies: 11:20 Codeine; aa5 - PMHx: 11:20 Diabetes - IDDM; Hyperlipidemia; Hypertension; Hypothyroidism; CHF; aa5 - PSHx: 11:20 Tubal ligation; toe amputation; carotid stent; aa5 - Immunization history:: Flu vaccine is up to date. - Social history:: Smoking status: Patient/guardian denies using tobacco. - Ebola Screening: : No symptoms or risks identified at this time. ROS: 12:12 Eyes: Negative for injury, pain, redness, and discharge, ENT: Negative for injury, jr8 pain, and discharge, Neck: Negative for injury, pain, and swelling, Cardiovascular: Negative for chest pain, palpitations, and edema, Respiratory: Negative for shortness of breath, cough, wheezing, and pleuritic chest pain, Abdomen/GI: Negative for abdominal pain, nausea, vomiting, diarrhea, and constipation, Back: Negative for injury and pain, Skin: Negative for injury, rash, and discoloration, Neuro: Negative for headache, weakness, numbness, tingling, and seizure. 12:12 MS/extremity: Positive for decreased range of motion, pain, tenderness, of the left hand. Exam: 12:12 Eyes: Pupils equal round and reactive to light, extra-ocular motions intact. Lids and jr8 lashes normal. Conjunctiva and sclera are non-icteric and not injected. Cornea within normal limits. Periorbital areas with no swelling, redness, or edema. ENT: Nares patent. No nasal discharge, no septal abnormalities noted. Tympanic membranes are normal and external auditory canals are clear. Oropharynx with no redness, swelling, or masses, exudates, or evidence of obstruction, uvula midline. Mucous membranes moist. Neck: Trachea midline, no thyromegaly or masses palpated, and no cervical lymphadenopathy. Supple, full range of motion without nuchal rigidity, or vertebral point tenderness. No Meningismus. Chest/axilla: Normal chest wall appearance and motion. Nontender with no deformity. No lesions are appreciated. Cardiovascular: Regular rate and rhythm with a normal S1 and S2. No gallops, murmurs, or rubs. Normal PMI, no JVD. No pulse deficits. Respiratory: Lungs have equal breath sounds bilaterally, clear to auscultation and percussion. No rales, rhonchi or wheezes noted. No increased work of breathing, no retractions or nasal flaring. Abdomen/GI: Soft, non-tender, with normal bowel sounds. No distension or tympany. No guarding or rebound. No evidence of tenderness throughout. Back: No spinal tenderness. No costovertebral tenderness. Full range of motion. Skin: Warm, dry with normal turgor. Normal color with no rashes, no lesions, and no evidence of cellulitis. Neuro: Awake and alert, GCS 15, oriented to person, place, time, and situation. Cranial nerves II-XII grossly intact. Motor strength 5/5 in all extremities. Sensory grossly intact. Cerebellar exam normal. Normal gait. 12:12 Musculoskeletal/extremity: Circulation is intact in all extremities. Pulses: noted to be 2+ in the right radial artery and left radial artery, Mild pain to dorsum of hand over the lunate region. No swelling, erythema, or trauma noted. Pain to palpation and ROM present. Negative for sensory deficit . Vital Signs: 11:20 BP 129 / 89; Pulse 88; Resp 16 S; Temp 98.5(O); Pulse Ox 96% on R/A; Weight 111.13 kg aa5 (R); Height 5 ft. 5 in. (165.10 cm) (R); Pain 310; 11:20 Body Mass Index 40.77 (111.13 kg, 165.10 cm) aa5 MDM: 11:28 Patient medically screened. [facility] 12:12 Data reviewed: vital signs, nurses notes, radiologic studies, plain films, and as a jr8 result, I will discharge patient. Data interpreted: Pulse oximetry: on room air is 96 %. Interpretation: normal. Counseling: I had a detailed discussion with the patient and/or guardian regarding: the historical points, exam findings, and any diagnostic results supporting the discharge/admit diagnosis, radiology results, the need for outpatient follow up, a family practitioner, to return to the emergency department if symptoms worsen or persist or if there are any questions or concerns that arise at home. 10/31 11:40 Order name: XRAY Hand LEFT 3 View; Complete Time: 12:31 jr8 Administered Medications: No medications were administered Disposition: 10/31/18 12:15 Discharged to Home. Impression: Other reactive arthropathies, left hand. - Condition is Stable. - Discharge Instructions: Arthritis. - Prescriptions for Mobic 7.5 mg Oral Tablet - take 1 tablet by ORAL route once daily As needed take with food; 12 tablet. - Medication Reconciliation Form, Thank You Letter, Antibiotic Education, Prescription Opioid Use form. - Follow up: Private Physician; When: 5 - 6 days; Reason: Recheck today's complaints, Continuance of care, Re-evaluation by your physician. - Problem is new. - Symptoms have improved. Addendum: 11/03/2018 08:56 Co-signature as Attending Physician, Gonzales Giordano MD I agree with the assessment and c vieira plan of care. Signatures: Dispatcher [employer] Gonzales Chowdhury MD MD cha Calderon, Audri, RN RN aa5 Ilya Collins PA PA jr8 Corrections: (The following items were deleted from the chart) 10/31 12:39 12:15 10/31/2018 12:15 Discharged to Home. Impression: Other reactive arthropathies, aa5 left hand. Condition is Stable. Forms are Medication Reconciliation Form, Thank You Letter, Antibiotic Education, Prescription Opioid Use. Follow up: Private Physician; When: 5 - 6 days; Reason: Recheck today's complaints, Continuance of care, Re-evaluation by your physician. Problem is new. Symptoms have improved. jr8
--- NOTE | 2018-10-31 12:16 | ER ---
Nurse's Notes [facility] Name: Josie Lizarraga Age: 58 yrs Sex: Female : 1960 Arrival Date: 10/31/2018 Time: 11:11 Bed 16 Private MD: Diagnosis: Other reactive arthropathies, left hand Presentation: 10/31 11:20 Presenting complaint: Patient states: pain to top of left hand and left wrist that aa5 began last night, pt denies known injury. 11:20 Transition of care: patient was not received from another setting of care. Onset of aa5 symptoms was October 2018. Risk Assessment: Do you want to hurt yourself or someone else? Patient reports no desire to harm self or others. Initial Sepsis Screen: Does the patient meet any 2 criteria? No. Patient's initial sepsis screen is negative. Does the patient have a suspected source of infection? No. Patient's initial sepsis screen is negative. Care prior to arrival: None. 11:20 Acuity: FRACISCO 4 aa5 11:20 Method Of Arrival: Ambulatory aa5 Triage Assessment: 11:20 General: Appears comfortable, Behavior is calm, cooperative. aa5 Historical: - Allergies: 11:20 Codeine; aa5 - PMHx: 11:20 Diabetes - IDDM; Hyperlipidemia; Hypertension; Hypothyroidism; CHF; aa5 - PSHx: 11:20 Tubal ligation; toe amputation; carotid stent; aa5 - Immunization history:: Flu vaccine is up to date. - Social history:: Smoking status: Patient/guardian denies using tobacco. - Ebola Screening: : No symptoms or risks identified at this time. Screenin:20 Abuse screen: Denies threats or abuse. Nutritional screening: No deficits noted. aa5 Tuberculosis screening: No symptoms or risk factors identified. Fall Risk None identified. Assessment: 11:20 General: Appears comfortable, Behavior is calm, cooperative. Pain: Complains of pain in aa5 dorsum of left hand and left wrist Pain does not radiate. Pain currently is 3 out of 10 on a pain scale. Quality of pain is described as aching, Is continuous. Neuro: Level of Consciousness is awake, alert, obeys commands, Oriented to person, place, time, situation. Cardiovascular: Capillary refill < 3 seconds is brisk in bilateral fingers Patient's skin is warm and dry. Respiratory: Airway is patent Respiratory effort is even, unlabored, Respiratory pattern is regular, symmetrical. GI: No signs and/or symptoms were reported involving the gastrointestinal system. : No signs and/or symptoms were reported regarding the genitourinary system. EENT: No signs and/or symptoms were reported regarding the EENT system. Derm: Skin is pink, warm \T\ dry. Musculoskeletal: mild swelling noted to left wrist. 11:50 Reassessment: Patient is alert, oriented x 3, equal unlabored respirations, skin aa5 warm/dry/pink. x-ray at bedside. 12:35 Reassessment: Patient is alert, oriented x 3, equal unlabored respirations, skin aa5 warm/dry/pink. Vital Signs: 11:20 BP 129 / 89; Pulse 88; Resp 16 S; Temp 98.5(O); Pulse Ox 96% on R/A; Weight 111.13 kg aa5 (R); Height 5 ft. 5 in. (165.10 cm) (R); Pain 3/10; 11:20 Body Mass Index 40.77 (111.13 kg, 165.10 cm) aa5 ED Course: 11:11 Patient arrived in ED. rg4 11:20 Arm band placed on Patient placed in an exam room, on a stretcher. aa5 11:20 Patient has correct armband on for positive identification. Call light in reach. aa5 11:23 Ilya Collins PA is PHCP. jr8 11:23 Gonzales Giordano MD is Attending Physician. jr8 11:29 Scalret Alfonso, RN is Primary Nurse. aa5 11:47 Triage completed. aa5 12:01 XRAY Hand LEFT 3 View In Process Unspecified. EDMS 12:35 No provider procedures requiring assistance completed. Patient did not have IV access aa5 during this emergency room visit. Administered Medications: No medications were administered Outcome: 12:15 Discharge ordered by . jr8 12:35 Discharged to home ambulatory. aa5 12:35 Condition: stable 12:35 Discharge instructions given to patient, Instructed on discharge instructions, follow up and referral plans. medication usage, Demonstrated understanding of instructions, follow-up care, medications, Prescriptions given X 1. 12:39 Patient left the ED. aa5 Signatures: Dispatcher [employer] EDPA Scarlet Alfonso, RN RN aa5 Ilya Collins PA PA jr8 Karen Wilson 4
--- NOTE | 2018-10-31 12:27 | RAD REPORT ---
EXAM DESCRIPTION: RAD - Hand Left 3 View - 10/31/2018 12:00 pm CLINICAL HISTORY: PAIN COMPARISON: No comparisons FINDINGS: Mild radiocarpal osteoarthritis. No acute fracture or dislocation seen. Soft tissue swelli ng is seen along the dorsum of the hand.
== END 2018-10-31 12:39 | disposition home or self-care (01) ==
LOC: ER 11:09
DX: M12.9 Arthropathy, unspecified (principal); E11.9 Type 2 diabetes mellitus without complications; E78.5 Hyperlipidemia, unspecified; I10 Essential (primary) hypertension; E03.9 Hypothyroidism, unspecified; Z88.5 Allergy status to narcotic agent
CPT/HCPCS: 99283

== ENCOUNTER 2019-09-28 06:40 | Emergency (ER) | payer OTHER ==
--- OUTSIDE RECORDS SUMMARY | 2019-09-28 06:44 | XMS REPORT ---
:1960 Author Organization eClinicalWorks Care Team Providers Name Role Phone Meli Guajardo Provider Role Unavailable Allergies No Known Allergies Problems Problem Type Condition Code Onset Dates Condition Statu s Problem Hypothyroidism, unspecified type E03.9 Active Problem Depression with anxiety F41.8 Acti ve Problem Hyperlipidemia, unspecified E78.5 Active hyperlipidemia type Assessment Diarrhea, unspecified type R19.7 A ctive Problem Uncontrolled type 2 diabetes E11.65 Active mellitus with hyperglycemia Problem Subcutaneous mass R22.9 Active Problem Right arm pain M79.601 Active Problem Right arm numbness R20.0 Active Problem Hypertension, unspecified type I10 Active Problem Hypothyroidism (acquired) E03.9 Ac tive Problem Diabetic peripheral neuropathy E11.42 Active Problem Diarrhea, unspecified type R19.7 A ctive Medications Medication Code Code Instructions Start End Status Dosage System Date Date Carvedilol [facility] 53363651430 3.125 MG Orally Active 1 tablet Twice daily Dixon Diggs [facility] 39969188494 300u/ml December Active 110 units subcutaneously 21, Once daily at 2019 bedtime Furosemide ND 86168788877 40 MG Orally Once Active 1 tablet a day as needed for swelling (Take with KCl) Levothyroxine [facility] 50338062098 75 MCG Orally Active 1 tablet Sodium Once a day on an empty stomach in the morning Aspirin 81 [facility] 62153307531 81 MG Orally Once Active 1 tablet a day Viberzi [facility] 30252216738 75 MG Orally Apr 29August Active 1 table t Twice a day for 2017, with toshia d diarrhea 2018 Paroxetine HCl ND 68464963528 40 MG Orally Once Act leigh ann 1 tablet a day in the morning Potassium ND 59715653010 20 MEQ Orally December Active 1 ca psule Chloride Once daily (Take 21, with Furosemide) 2018 Amitriptyline [facility] 59869239535 10 MG Orally Once Acti ve 1 tablet HCl a day Vitamin D-3 [facility] 71003806588 5000 UNIT Orally Active 1 tablet twice a day Creon [facility] 80157147251 19527 UNIT Orally May 18August Active as 2 capsules with 2018 03, each meal and 1 2018 capsule with each snack x2 Clopidogrel [facility] 55192677830 75 MG Orally Once Active 1 tablet Bisulfate a day Gabapentin ND 29910189310 300 MG Orally Apr 29, Active 1 c apsule Once daily in 2017 evening for pain Losartan [facility] 48872446522 100 mg Orally Active 1 tab let Potassium Once a day Atorvastatin [facility] 61404561326 40 MG Orally Once Activ e 1 tablet Calcium a day in evening Trazodone HCl [facility] 90500362747 50 MG Orally Once Acti ve 1 tablet a day at bedtime as needed for sleep Victoza [facility] 65271032412 18 MG/3ML December Active 1.8 mg Subcutaneous Once , daily in evening 2019 Amlodipine [facility] 50313431797 10 MG Orally Once Active 1 tablet Besylate a day Fish Oil [facility] 65807889621 500 MG Orally Active 1 cap prabhjot Twice a day Results No Known Results Summary Purpose eClinicalWorks Submission
--- OUTSIDE RECORDS SUMMARY | 2019-09-28 06:44 | XMS REPORT ---
:1960 Author Organization eClinicalWorks Care Team Providers Name Role Phone CasandraHuanen Provider Role Unavailable Allergies No Known Allergies [...] Diarrhea, unspecified type R19.7 A ctive Medications No Known Medications Results No Known Results Summary Purpose eClinicalWorks Submission
--- OUTSIDE RECORDS SUMMARY | 2019-09-28 06:44 | XMS REPORT ---
:1960 Author Organization [facility] t Address [address] [place] [address] Care Team Providers Name Role Phone CORNELL GREEN Unavailable Unavailable Problems Condition Condition Condition Status Onset Resolution Last Treatin g Comments Name Details Category Date Date Treatment Clinician Date Hypothyroid Hypothyroid Problem Active ism, ism, unspecified unspecified type type Depression Depression Problem Active with with anxiety anxiety Hyperlipide Hyperlipide Problem Active shilpi, shilpi, unspecified unspecified hyperlipide hyperlipide shilpi type shilpi type Diarrhea, Diarrhea, Problem Active unspecified unspecified type type Uncontrolle Uncontrolle Problem Active d type 2 d type 2 diabetes diabetes mellitus mellitus with with hyperglycem hyperglycem ia ia Subcutaneou Subcutaneou Problem Active s mass s mass Right arm Right arm Problem Active pain pain Right arm Right arm Problem Active numbness numbness Hypertensio Hypertensio Problem Active n, n, unspecified unspecified type type Diabetic Diabetic Problem Active peripheral peripheral neuropathy neuropathy History of History of Problem Active carotid carotid atheroscler atheroscler osis osis Obesity Obesity Problem Active (BMI (BMI 30-39.9) 30-39.9) Left hand Left hand Problem Active pain pain Allergies, Adverse Reactions, Alerts Allergy Allergy Status Severity Reaction(s) Onset Inactive Treating C omments Name Type Date Date Clinician codeine Adverse Active shortness of Reaction breath Medications Ordered Filled Start Stop Current Ordering Indication Dosage Frequency Signature Comments Components Medication Medication Date Date Medication? Clinician (SIG) Name Name Creon Creon 2017-06 2019- No Meli as 2-10 - Millender directed 00:00: 00:00 00 :00 Gabapentin Gabapentin 2017-06 Yes Meli as 06-29 Millender directed 00:00: 00 Viberzi Viberzi 2017-06 2019- No Meli 1 tablet 06-29 Millender with food 00:00: 00:00 00 :00 Carvedilol Carvedilol Yes Meli 1 tablet Millender Furosemide Furosemide Yes Meli 1 tablet Millender Levothyroxi Levothyroxi Yes Meli 1 tablet ne Sodium ne Sodium Millender on an empty stomach in the morning Aspirin 81 Aspirin 81 Yes Meli 1 tablet Millender Paroxetine Paroxetine Yes Meli 1 tablet HCl HCl Millender in the morning Amitriptyli Amitriptyli Yes Meli 1 tablet ne HCl ne HCl Millender Vitamin D-3 Vitamin D-3 Yes Meli 1 tablet Millender Clopidogrel Clopidogrel Yes Meli 1 tablet Bisulfate Bisulfate Millender Losartan Losartan Yes Meli 1 tablet Potassium Potassium Millender Atorvastati Atorvastati Yes Meli 1 tablet n Calcium n Calcium Millender Trazodone Trazodone Yes Meli 1 tablet HCl HCl Millender at bedtime as needed for sleep Amlodipine Amlodipine Yes Mlei 1 tablet Besylate Besylate Millender Fish Oil Fish Oil Yes Meli 1 capsule Millender Toujeo Toujeo 2019- No Meli 110 units SoloStar SoloStar 12-27 Millender 00:00 :00 Potassium Potassium 2019- No Meli 1 capsule Chloride Chloride 12-27 Millender 00:00 :00 Victoza Victoza 2019- No Meli 1.8 mg 12-27 Millender 00:00 :00 Encounters Start End Encounter Admission Attending Care Care Encounter Date/Time Date/Time Type Type Clinicians Facility Department ID 2018-07-08 2018-07-08 [facility] [id number] 13:04:00 13:04:00 [facility] 2018-07-02 2018-07-02 [id number] 10:00:00 10:00:00 [facility] 2018-06-18 2018-06-18 [facility] [id number] 10:09:00 10:09:00 [facility] 2018-06-11 2018-06-11 [facility] [id number] 16:51:00 16:51:00 [facility] 2018-05-18 2018-05-18 [facility] [id number] 10:49:00 10:49:00 [facility] Medicine Results Test Description Test Time Test Comments Text Results Atomic Results Result Comments TISSUE EXAM 2019-08-24 16:00:00 Surgical Pathology Re port Case: [id number] Authorizing Provider: Theo Pickett Collected: [id number] MD JUAN PABLO Ordering Location: [facility] - Perioperative Received: [id number] Service s Pathologist: Garret Carnes DO Specimen: Stomach, GREATE R CURVATURE STOMACH, GREATER CURVATURE, SLEEVE GASTRECTOMY:- STOMACH WALL WITHIN NORMAL L IMITS- NO HELICOBACTOR-LIKE ORGANISMS IDENTIFIED ON ROUTINE STAIN (H&E)- NEGATIVE FOR IN TESTINAL METAPLASIA OR DYSPLASIA Signing Pa thologist Direct Phone Line: [phone] tronically signed by Garret Carnes DO on at 4:00 [id number] obesityProcedu re- laparoscopic longitudinal sleeve gastrect omyStomach, greater curvatureThe instrument, con tainers, paperwork, and cassettes all read as [id number]. Received in formalin labeled with the pa tient's name (Zia) and medical record number. A . Received in formalin labeled as "greater curvature" is an 18.0 x 6.0 x 3.5 cm segment of stomach. The serosal surface is lou-quigley and smooth and has clamping artifact noted. Th ere is a staple line which runs along the long ax is of the specimen. Opening the specimen reveals grossly unremarkable mucosa which displays the us ual folding pattern of the rugae. No discrete m asses, polyps or ulcers are noted. Represent ative sections are submitted in cassette [id number], JF/bc All histologic sections have bee n microscopically examined. The pertinent micr oscopic examination findings, along with the krystina ss examination findings, have been incorpor ated into the diagnosis rendered above. POCT-GLUCOSE METER 2019-08-24 14:01:00 Test Item Value Reference Range Comments POC-GLUCOSE METER (BEAKER) 95 mg/dL 70-110 : ERVIN SARAH AT [facility] [address] [facility] (test code = 1538) [place] [address]: Hot Metal Car Operator/Technic shayy ID = [id number] for Eduardo Urena BASIC METABOLIC [id number] 06:15:00 Test Item Value Reference Range Comments SODIUM (BEAKER) (test 139 meq/L 135-148 code = 381) POTASSIUM (BEAKER) (test 4.1 meq/L 3.5-5.5 code = 379) CHLORIDE (BEAKER) (test 103 meq/L 98-106 code = 382) CO2 (BEAKER) (test code = 26 meq/L 20-31 355) BLOOD UREA NITROGEN 13 mg/dL 10-26 (BEAKER) (test code = 354) CREATININE (BEAKER) (test 0.84 mg/dL 0.50-1.20 code = 358) GLUCOSE RANDOM (BEAKER) 117 mg/dL 70-110 (test code = 652) CALCIUM (BEAKER) (test 8.8 mg/dL 8.5-10.5 code = 697) EGFR (BEAKER) (test code 69 mL/min/1.73 sq m EST IMATED GFR IS NOT = 1092) ACCURATE CREA TININE CLEARANCE IN PRE DICTING GLOMERULAR FILTR ATION RATE. ESTIMATED GFR IS NOT APPLICABLE F OR DIALYSIS PATIENT S. Hot Metal Car Operator ID - [id number] W/PLT COUNT & AUTO [id number] 05:44:00 Test Item Value Reference Range Comments WHITE BLOOD CELL COUNT (BEAKER) (test code = 8.9 K/ L 4.0 -10.0 775) RED BLOOD CELL COUNT (BEAKER) (test code = 761) 4.08 M/ L 4.00-5.00 HEMOGLOBIN (BEAKER) (test code = 410) 11.8 GM/DL 12.0-15.5 HEMATOCRIT (BEAKER) (test code = 411) 35.7 % 36.0-46.0 MEAN CORPUSCULAR VOLUME (BEAKER) (test code = 87.5 fL 82 .0-99.0 753) MEAN CORPUSCULAR HEMOGLOBIN (BEAKER) (test code 28.9 pg 27.0-33.0 = 751) MEAN CORPUSCULAR HEMOGLOBIN CONC (BEAKER) (test 33.1 GM/DL 32.0-36.0 code = 752) RED CELL DISTRIBUTION WIDTH (BEAKER) (test code 14.4 % 12.0-15.0 = 412) PLATELET COUNT (BEAKER) (test code = 756) 238 K/CU MM 150-43 0 MEAN PLATELET VOLUME (BEAKER) (test code = 754) 10.1 fL 6.0-11.5 NUCLEATED RED BLOOD CELLS (BEAKER) (test code = 0 /100 WBC 0-0 413) NEUTROPHILS RELATIVE PERCENT (BEAKER) (test code 77 % = 429) LYMPHOCYTES RELATIVE PERCENT (BEAKER) (test code 15 % = 430) MONOCYTES RELATIVE PERCENT (BEAKER) (test code = 7 % 431) EOSINOPHILS RELATIVE PERCENT (BEAKER) (test code 0 % = 432) BASOPHILS RELATIVE PERCENT (BEAKER) (test code = 0 % 437) NEUTROPHILS ABSOLUTE COUNT (BEAKER) (test code = 6.91 K/ L 1.80-8.00 670) LYMPHOCYTES ABSOLUTE COUNT (BEAKER) (test code = 1.31 K/ L 1.48-4.50 414) MONOCYTES ABSOLUTE COUNT (BEAKER) (test code = 0.65 K/ L 0 .00-1.30 415) EOSINOPHILS ABSOLUTE COUNT (BEAKER) (test code = 0.01 K/ L 0.00-0.50 416) BASOPHILS ABSOLUTE COUNT (BEAKER) (test code = 0.02 K/ L 0 .00-0.20 417) IMMATURE GRANULOCYTES-RELATIVE PERCENT (BEAKER) 0 % 0-0 (test code = 2801) POCT-GLUCOSE [id number] 05:00:00 Test Item Value Reference Range Comments POC-GLUCOSE METER (BEAKER) 113 mg/dL 70-110 : ERVIN SARAH AT [facility] [address] [facility] (test code = 1538) [place] [address]: Hot Metal Car Operator/Technic shayy ID = [id number] for Ma christal, Vaughnmed POCT-GLUCOSE [id number] 17:25:00 Test Item Value Reference Range Comments POC-GLUCOSE METER (BEAKER) 194 mg/dL 70-110 : ERVIN SARAH AT [facility] [address] [facility] (test code = 1538) WAY [place] [address]: Hot Metal Car Operator/Technic shayy ID = [id number] for Al Candi jeffery POCT-GLUCOSE [id number] 11:15:00 Test Item Value Reference Range Comments POC-GLUCOSE METER (BEAKER) 145 mg/dL 70-110 : ERVIN SARAH AT [facility] [address] [facility] (test code = 1538) WAY [place] [address]: Hot Metal Car Operator/Technic shayy ID = [id number] for Se jhony, Jonan POCT-GLUCOSE [id number] 08:52:00 Test Item Value Reference Range Comments POC-GLUCOSE METER (BEAKER) 141 mg/dL 70-110 : ERVIN SMITH AT [facility] [address] [facility] (test code = 1538) [facility] [address]: Hot Metal Car Operator/Technic shayy ID = [id number] for Brandi White BASIC METABOLIC [id number] 08:41:00 Test Item Value Reference Range Comments SODIUM (BEAKER) (test 141 meq/L 135-148 code = 381) POTASSIUM (BEAKER) (test 4.2 meq/L 3.5-5.5 code = 379) CHLORIDE (BEAKER) (test 102 meq/L 98-106 code = 382) CO2 (BEAKER) (test code = 31 meq/L 20-31 355) BLOOD UREA NITROGEN 12 mg/dL 10-26 (BEAKER) (test code = 354) CREATININE (BEAKER) (test 0.96 mg/dL 0.50-1.20 code = 358) GLUCOSE RANDOM (BEAKER) 95 mg/dL 70-110 (test code = 652) CALCIUM (BEAKER) (test 9.5 mg/dL 8.5-10.5 code = 697) EGFR (BEAKER) (test code 59 mL/min/1.73 sq m EST IMATED GFR IS NOT = 1092) ACCURATE CREA TININE CLEARANCE IN PRE DICTING GLOMERULAR FILTR ATION RATE. ESTIMATED GFR IS NOT APPLICABLE F OR DIALYSIS PATIENT S. Hot Metal Car Operator ID - [id number] 08:41:00 Test Item Value Reference Range Comments ALBUMIN (BEAKER) (test code = 1145) 4.3 g/dL 3.5-5.0 Hot Metal Car Operator ID - [id number] W/PLT COUNT & AUTO [id number] 08:17:00 Test Item Value Reference Range Comments WHITE BLOOD CELL COUNT (BEAKER) (test code = 7.7 K/ L 4.0 -10.0 775) RED BLOOD CELL COUNT (BEAKER) (test code = 761) 4.53 M/ L 4.00-5.00 HEMOGLOBIN (BEAKER) (test code = 410) 13.2 GM/DL 12.0-15.5 HEMATOCRIT (BEAKER) (test code = 411) 38.9 % 36.0-46.0 MEAN CORPUSCULAR VOLUME (BEAKER) (test code = 85.9 fL 82 .0-99.0 753) MEAN CORPUSCULAR HEMOGLOBIN (BEAKER) (test code 29.1 pg 27.0-33.0 = 751) MEAN CORPUSCULAR HEMOGLOBIN CONC (BEAKER) (test 33.9 GM/DL 32.0-36.0 code = 752) RED CELL DISTRIBUTION WIDTH (BEAKER) (test code 14.1 % 12.0-15.0 = 412) PLATELET COUNT (BEAKER) (test code = 756) 247 K/CU MM 150-43 0 MEAN PLATELET VOLUME (BEAKER) (test code = 754) 9.9 fL 6.0-11.5 NUCLEATED RED BLOOD CELLS (BEAKER) (test code = 0 /100 WBC 0-0 413) NEUTROPHILS RELATIVE PERCENT (BEAKER) (test code 59 % = 429) LYMPHOCYTES RELATIVE PERCENT (BEAKER) (test code 28 % = 430) MONOCYTES RELATIVE PERCENT (BEAKER) (test code = 8 % 431) EOSINOPHILS RELATIVE PERCENT (BEAKER) (test code 5 % = 432) BASOPHILS RELATIVE PERCENT (BEAKER) (test code = 1 % 437) NEUTROPHILS ABSOLUTE COUNT (BEAKER) (test code = 4.56 K/ L 1.80-8.00 670) LYMPHOCYTES ABSOLUTE COUNT (BEAKER) (test code = 2.14 K/ L 1.48-4.50 414) MONOCYTES ABSOLUTE COUNT (BEAKER) (test code = 0.59 K/ L 0 .00-1.30 415) EOSINOPHILS ABSOLUTE COUNT (BEAKER) (test code = 0.37 K/ L 0.00-0.50 416) BASOPHILS ABSOLUTE COUNT (BEAKER) (test code = 0.05 K/ L 0 .00-0.20 417) IMMATURE GRANULOCYTES-RELATIVE PERCENT (BEAKER) 0 % 0-0 (test code = 2801) BASIC METABOLIC [id number] 10:18:00 Test Item Value Reference Range Comments SODIUM (BEAKER) (test 138 meq/L 135-148 code = 381) POTASSIUM (BEAKER) (test 4.9 meq/L 3.5-5.5 code = 379) CHLORIDE (BEAKER) (test 100 meq/L 98-106 code = 382) CO2 (BEAKER) (test code = 29 meq/L 20-31 355) BLOOD UREA NITROGEN 23 mg/dL 10-26 (BEAKER) (test code = 354) CREATININE (BEAKER) (test 1.16 mg/dL 0.50-1.20 code = 358) GLUCOSE RANDOM (BEAKER) 164 mg/dL 70-110 (test code = 652) CALCIUM (BEAKER) (test 9.8 mg/dL 8.5-10.5 code = 697) EGFR (BEAKER) (test code 48 mL/min/1.73 sq m EST IMATED GFR IS NOT = 1092) ACCURATE CREA TININE CLEARANCE IN PRE DICTING GLOMERULAR FILTR ATION RATE. ESTIMATED GFR IS NOT APPLICABLE F OR DIALYSIS PATIENT S. Hot Metal Car Operator ID - [id number] 10:18:00 Test Item Value Reference Range Comments ALBUMIN (BEAKER) (test code = 1145) 4.4 g/dL 3.5-5.0 Hot Metal Car Operator ID - [id number] W/PLT COUNT & AUTO [id number] 09:56:00 Test Item Value Reference Range Comments WHITE BLOOD CELL COUNT (BEAKER) 8.6 K/ L 4.0-10.0 (test code = 775) RED BLOOD CELL COUNT (BEAKER) 4.89 M/ L 4.00-5.00 (test code = 761) HEMOGLOBIN (BEAKER) (test code 14.1 GM/DL 12.0-15.5 = 410) HEMATOCRIT (BEAKER) (test code 42.2 % 36.0-46.0 = 411) MEAN CORPUSCULAR VOLUME 86.3 fL 82.0-99.0 (BEAKER) (test code = 753) MEAN CORPUSCULAR HEMOGLOBIN 28.8 pg 27.0-33.0 (BEAKER) (test code = 751) MEAN CORPUSCULAR HEMOGLOBIN 33.4 GM/DL 32.0-36.0 CONC (BEAKER) (test code = 752) RED CELL DISTRIBUTION WIDTH 13.3 % 12.0-15.0 (BEAKER) (test code = 412) PLATELET COUNT (BEAKER) (test 298 K/CU MM 150-430 code = 756) MEAN PLATELET VOLUME (BEAKER) 10.2 fL 6.0-11.5 MP V-Approximately 20% (test code = 754) positive bias due to method change. NUCLEATED RED BLOOD CELLS 0 /100 WBC 0-0 (BEAKER) (test code = 413) NEUTROPHILS RELATIVE PERCENT 60 % (BEAKER) (test code = 429) LYMPHOCYTES RELATIVE PERCENT 26 % (BEAKER) (test code = 430) MONOCYTES RELATIVE PERCENT 8 % (BEAKER) (test code = 431) EOSINOPHILS RELATIVE PERCENT 4 % (BEAKER) (test code = 432) BASOPHILS RELATIVE PERCENT 1 % (BEAKER) (test code = 437) NEUTROPHILS ABSOLUTE COUNT 5.15 K/ L 1.80-8.00 (BEAKER) (test code = 670) LYMPHOCYTES ABSOLUTE COUNT 2.23 K/ L 1.48-4.50 (BEAKER) (test code = 414) MONOCYTES ABSOLUTE COUNT 0.71 K/ L 0.00-1.30 (BEAKER) (test code = 415) EOSINOPHILS ABSOLUTE COUNT 0.38 K/ L 0.00-0.50 (BEAKER) (test code = 416) BASOPHILS ABSOLUTE COUNT 0.06 K/ L 0.00-0.20 (BEAKER) (test code = 417) IMMATURE GRANULOCYTES-RELATIVE 0 % 0-0 PERCENT (BEAKER) (test code = 8368)
--- OUTSIDE RECORDS SUMMARY | 2019-09-28 06:45 | XMS REPORT ---
:1960 Author Organization eClinicalWorks Care Team Providers Name Role Phone Meli Guajardo Provider Role Unavailable Allergies No Known Allergies Problems Problem Type Condition Code Onset Dates Condition Statu s Problem Hypothyroidism (acquired) E03.9 Ac tive Problem History of carotid atherosclerosis Z86.79 Active Problem Uncontrolled type 2 diabetes E11.65 Active mellitus with hyperglycemia Problem Hypothyroidism, unspecified type E03.9 Active Problem Hyperlipidemia, unspecified E78.5 Active hyperlipidemia type Problem Hypertension, unspecified type I10 Active Problem Depression with anxiety F41.8 Acti ve Problem Subcutaneous mass R22.9 Active Problem Right arm pain M79.601 Active Problem Right arm numbness R20.0 Active Problem Left hand pain M79.642 Active Problem Obesity (BMI 30-39.9) E66.9 Active Problem Diabetic peripheral neuropathy E11.42 Active Problem Diarrhea, unspecified type R19.7 A ctive Medications No Known Medications Results No Known Results Summary Purpose [employer] Submission
--- OUTSIDE RECORDS SUMMARY | 2019-09-28 06:45 | XMS REPORT ---
:1960 Author Organization e[employer] Care Team Providers Name Role Phone Rickiebasilio Meli Provider Role Unavailable Allergies, Adverse Reactions, Alerts [...] Problem Diarrhea, unspecified type R19.7 A ctive Assessment Uncontrolled type 2 diabetes E11.65 Active mellitus with hyperglycemia Assessment History of carotid atherosclerosis Z86.79 Active Assessment Hypothyroidism, unspecified type E03.9 Active Assessment Hyperlipidemia, unspecified E78.5 Active hyperlipidemia type Problem Hypothyroidism, unspecified type E03.9 Active Problem Hyperlipidemia, unspecified E78.5 Active hyperlipidemia type Assessment Hypertension, unspecified type I10 Active Problem Hypertension, unspecified type I10 Active Assessment Depression with anxiety F41.8 Acti ve Problem Depression with anxiety F41.8 Acti ve Medications Medication Code Code Instructions Start End Status Dosage System Date Date Victoza [facility] 91513207566 18 MG/3ML December Active 1.8 mg Subcutaneous Once 21, daily in evening 2018 Atorvastatin ND 13221263381 40 MG Orally Once Activ e 1 tablet Calcium a day in evening Paroxetine HCl ND 46137739365 40 MG Orally Once Act leigh ann 1 tablet a day in the morning Carvedilol [facility] 26999021692 3.125 MG Orally Active 1 tablet Twice daily Creon [facility] 43596796486 70998 UNIT Orally May 18August Active as 2 capsules with 2018 10, directed each meal and 1 2018 capsule with each snack x2 Potassium ND 69127482507 20 MEQ Orally December Active 1 ca psule Chloride Once daily (Take , with Furosemide) 2018 Amlodipine ND 98833335523 10 MG Orally Once Active 1 tablet Besylate a day Aspirin 81 ND 17316318165 81 MG Orally Once Active 1 tablet a day Furosemide ND 13588118888 40 MG Orally Once Active 1 tablet a day as needed for swelling (Take with KCl) Losartan ND 68042370111 100 mg Orally Active 1 tab let Potassium Once a day Vitamin D-3 ND 69917932797 5000 UNIT Orally Active 1 tablet twice a day Trazodone HCl ND 86989041699 50 MG Orally Once Acti ve 1 tablet a day at bedtime as needed for sleep Touvlad IsabeloStar [facility] 27821742945 300u/ml December Active 110 units subcutaneously , Once daily at 2018 bedtime Viberzi [facility] 33742874551 75 MG Orally Apr 29August Active 1 table t Twice a day for 2017, with toshia d diarrhea 2018 Amitriptyline [facility] 68121542384 10 MG Orally Once Acti ve 1 tablet HCl a day Gabapentin ND 36013847498 300 MG Orally 2 Apr 29, Active a s capsules in am 2017 directed and 1 capsule in pm Clopidogrel ND 94825744330 75 MG Orally Once Active 1 tablet Bisulfate a day Fish Oil ND 18598126388 500 MG Orally Active 1 cap prabhjot Twice a day Levothyroxine ND 78747437210 75 MCG Orally Active 1 tablet Sodium Once a day on an empty stomach in the morning Results No Known Results Summary Purpose eClinicalWorks Submission
--- OUTSIDE RECORDS SUMMARY | 2019-09-28 06:49 | XMS REPORT | Summary of Care ---
:1960 Author Organization [facility] Address [address] [place] [address] Care Team Providers Name Role Phone Tomasa Patino Primary Care Provider Encounter Details Date Type Department Care Team Description 02/04/2019 Orders Only [facility] Doctor Unassigned, No [address] [facility] Name [place] [id number] [place] [address] Allergies Active Allergy Reactions Severity Noted Date Comments Codeine Swelling 01/02/2018 documented as of this encounter (statuses as of 02/04/2019) Medications Medication Sig Dispensed Refills Start Date End Date Status amitriptyline 10 mg 0 08/18/2018 Active tablet mupirocin 2 % 0 08/18/2018 Activ e ointment VALCYTE 450 mg 0 08/26/2018 Acti ve tablet albendazole 200 mg albendazole 200 mg 0 Active tablet tablet amLODIPine 10 mg amlodipine 10 mg 0 Active tablet tablet clopidogrel 75 mg clopidogrel 75 mg 0 Active tablet tablet sacubitril-valsartan Entresto 49 mg-51 mg 0 Active (ENTRESTO) 49-51 mg tablet tablet fluconazole 150 mg fluconazole 150 mg 0 Active tablet tablet gabapentin 300 mg gabapentin 300 mg 0 Active capsule capsule insulin aspart U-100 Novolog Flexpen 0 Active (NOVOLOG FLEXPEN U-100 Insulin aspart U-100 INSULIN) 100 100 unit/mL (3 mL) unit/mL injection subcutaneous insulin glargine Toujeo Max U-300 0 Active U-300 conc (TOUJEO SoloStar 300 unit/mL MAX U-300 SOLOSTAR) (3 mL) subcutaneous 300 unit/mL (3 mL) insulin pen InPn traZODONE 50 mg trazodone 50 mg 0 Active tablet tablet venlafaxine XR 75 mg venlafaxine ER 75 mg 0 Active 24 hr capsule capsule,extended release 24 hr amitriptyline 10 mg amitriptyline 10 mg 0 Active tablet tablet amitriptyline 25 mg amitriptyline 25 mg 0 Active tablet tablet atorvastatin 20 mg atorvastatin 20 mg 0 Active tablet tablet carvedilol 12.5 mg carvedilol 12.5 mg 0 Active tablet tablet furosemide 40 mg furosemide 40 mg 0 Active tablet tablet KCL 20 mEq tablet potassium chloride 0 Active ER 20 mEq tablet,extended release(part/cryst) peg-electrolyte soln Take as directed 4000 mL 0 12/31/2018 Active 236-22.74-6.74 -5.86 before colonoscopy gram solutionIndications: Diarrhea, unspecified type bisacodyl (DULCOLAX, Take 1 tablet by 2 tablet 0 12/31/2018 Active BISACODYL,) 5 mg EC mouth as needed (for tabletIndications: bowel prep prior to Diarrhea, colonoscopy). unspecified type levothyroxine 50 mcg Take 1 tablet by 30 tablet 0 01/06/2019 Active tabletIndications: mouth every morning. Diarrhea, unspecified type documented as of this encounter (statuses as of 02/04/2019) Active Problems Problem Noted Date Diarrhea, unspecified type 12/31/2018 Overview: Added automatically from request for khalida rosalia [id number] Carpal tunnel syndrome of right wrist 09/28/2018 Overview: Added automatically from request for khalida rosalia [id number] documented as of this encounter (statuses as of 02/04/2019) Social History Tobacco Use Types Packs/Day Years Used Date Former Smoker 1 15 Quit: 1995 Smokeless Tobacco: Former User Alcohol Use Drinks/Week oz/Week Comments No Sex Assigned at Date Recorded Not on file Job Start Date Occupation Industry Not on file Not on file Not on file Travel History Travel Start Travel End No recent travel history available. documented as of this encounter Last Filed Vital Signs Not on filedocumented in this encounter Plan of Treatment Date Type Specialty Care Team Description 02/16/2019 Office Visit Neurology Marty Wang MD [address] [place] [phone] 03/01/2019 Hospital Encounter Surgery Meli Viera Evelyn, MD unspecified type [address] [place], [place] [address] [phone] 03/01/2019 Surgery Surgery Meli Viera MD [address] [place], [place] [address] 04/08/2019 Appointment Echocardiograph Tte, [facility] Eco 05/19/2019 Office Visit Cardiology Alice Martinez MD [address] [place] [address] Health Maintenance Due Date Last Done Comments PNEUMOCOCCAL 0-64 YEARS COMBINED SERIES (1 of 1 - 1966 PPSV23) DTaP,Tdap,and Td Vaccines (1 - Tdap) 1979 PAP SMEAR 1981 COLONOSCOPY 2010 Zoster Recombinant Vaccine (SHINGRIX) (1 of 2) 2010 INFLUENZA VACCINE (#1) 2019 MAMMOGRAM 11/05/2019 11/04/2018 HEPATITIS C (HCV) SCREEN Completed 10/21/2018 documented as of this encounter Procedures Procedure Name Priority Date/Time Associated Diagnosis Comme nts EXTERNAL PROVIDER Routine 02/04/2019 12:01 AM CDT RECORDS documented in this encounter Results Not on filedocumented in this encounter Insurance Payer Benefit Plan / Subscriber ID Effective Phone Address T ype Group Dates [facility] xxxxxxxxx 2018-[address]se [address] Medic aid HEALTH CHOICE - HE[place] CHOICE [place] [id number] 1 MANAGED MEDICAID [place], [place]ID [phone] documented as of this encounter
--- OUTSIDE RECORDS SUMMARY | 2019-09-28 06:49 | XMS REPORT | Summary of Care ---
:[address] [facility] Address [address] [place] [address] Care Team Providers Name Role Phone Tomasa Patino Primary Care Provider Reason for Visit Reason Comments Assessment Encounter Details Date Type Department Care Team Description 02/02/2019 Telephone [facility] Assessment Clinics MD Nicolasa [address] [place] [phone] [place] [address] Allergies Active Allergy Reactions Severity Noted Date Comments Codeine Swelling 01/02/2018 documented as of this encounter (statuses as of 02/02/2019) Medications Medication Sig Dispensed Refills Start Date [...] as of this encounter (statuses as of 02/02/2019) Active Problems Problem Noted Date Diarrhea, unspecified type 12/31/2018 Overview: Added automatically from request for khalida rosalia [id number] Carpal tunnel syndrome of right wrist 09/28/2018 Overview: Added automatically from request for khalida rosalia [id number] documented as of this encounter (statuses as of 02/02/2019) Social History Tobacco Use Types Packs/Day Years [...] Treatment Date Type Specialty Care Team Description 03/01/2019 Hospital Encounter Surgery Meli Viera, unspecified MD Dana type [id number] [place], [place] [id number] 03/01/2019 Surgery Surgery Meli Viera MD [id number] [place] [address] 04/08/2019 Appointment Echocardiograph Tte, [facility] Eco 05/19/2019 Office Visit Cardiology Alice Martinez MD [address] [place] [address] Health Maintenance Due Date Last Done Comments PNEUMOCOCCAL 0-64 YEARS COMBINED SERIES (1 of 1 - 1966 PPSV23) DTaP,Tdap,and Td Vaccines (1 - Tdap) 1979 PAP SMEAR 1981 COLONOSCOPY 2010 Zoster Recombinant Vaccine (SHINGRIX) (1 of 2) 2010 INFLUENZA VACCINE (#1) 2019 MAMMOGRAM 11/05/2019 11/04/2018 HEPATITIS C (HCV) SCREEN Completed 10/21/2018 documented as of this encounter Results Not on filedocumented in this encounter Insurance Payer Benefit Plan / Subscriber ID Effective Phone Address [facility] xxxxxxxxx 2018-[place] [employer] Medic aid HEALTH CHOICE - HEALTH CHOICE nt [id number] 1 MANAGED MEDICAID [place], [place] MEDICAID [phone] documented as of this encounter
--- OUTSIDE RECORDS SUMMARY | 2019-09-28 06:50 | XMS REPORT | Summary of Care ---
:1960 Author Organization [facility] Address [address] [place] [address] Care Team Providers Name Role Phone Tomasa Patino Primary Care Provider Reason for Referral (YARI) Status Reason Specialty Diagnoses / Referred By Referred To Procedures Contact Contact Closed Vascular Sonography Diagnoses Stenosis of left carotid artery Marty Wang Procedures CAROTID DUPLEX BILATERAL BY VASCULAR LAB MD [place] [address] [place] [address]. [place] [address] Reason for Visit Reason Comments Follow-up (YARI) Status Reason Specialty Diagnoses / Referred By Referred To Procedures Contact Contact New Request Neurology Diagnoses Carotid artery disease, unspecified laterality, unspecified type Robbin Roblero MD Procedures REFERRAL NEUROLOGY [address] [place] [address] [id number] [place] [address] Encounter Details Date Type Department Care Team Description 02/16/2019 Office Visit [place] Marty Wang Stenosis of left carotid artery (Primary Dx); Neurology-Uma Calle MD Essential hypertension; [address] DM (diabetes mellitus), secondary uncont rolled; Drive, [address] [place], [place] Diarrhea, unspecified type [place]O [place] [phone] Allergies Active Allergy Reactions Severity Noted Date Comments Codeine Swelling 01/02/2018 documented as of this encounter (statuses as of 02/23/2019) Medications Medication Sig Dispensed Refills Start Date [...] as of this encounter (statuses as of 02/23/2019) Active Problems Problem Noted Date Morbid obesity with body mass index of 40.0-49.9 02/22 Diarrhea, unspecified type 12/31/2018 Overview: Added automatically from request for khalida lindsey [id number] Carpal tunnel syndrome of right wrist 09/28/2018 Overview: Added automatically from request for khalida lindsey [id number] documented as of this encounter (statuses as of 02/23/2019) Social History Tobacco Use Types Packs/Day Years Used Date Former Smoker 06 23 Quit: 1995 Smokeless Tobacco: Former User Alcohol Use Drinks/Week oz/Week Comments No Sex Assigned at Date Recorded Not on file Job Start Date Occupation Industry Not on file Not on file Not on file Travel History Travel Start Travel End No recent travel history available. documented as of this encounter Last Filed Vital Signs Vital Sign Reading Time Taken Comments Blood Pressure 135/77 02/16/2019 9:32 AM CDT Pulse 91 02/16/2019 9:32 AM CDT Temperature 36.3 C (97.4 F) 02/16/2019 9:32 AM CDT Respiratory Rate 18 02/16/2019 9:32 AM CDT Oxygen Saturation - - Inhaled Oxygen Concentration - - Weight 121.3 kg (267 lb 6 oz) 02/16/2019 9:32 AM CDT Height 165.1 cm (5' 5") 02/16/2019 9:32 AM CDT Body Mass Index 44.49 02/16/2019 9:32 AM CDT documented in this encounter Progress Notes Marty Wang MD - 02/16/2019 8:40 AM CDT I have verified the medical student documentation and/or findings, including the history, physical exam, and medical decision making. Additionally, I have personally performed or re-performed the physical exam and medical decision making activities of this patient's evaluation and management service. Marty Wang MD Appliance Fixer Neurology HISTORY OF PRESENT ILLNESS: Josie Lizarraga is a 58 year old Female with a PMH of DM2, HLD, HTN, carotid stenosis s/p L IC stent placement (2-3 years ago), CHF, hypothyroidism who presents to the clinic for evaluation of Plavix discontinuation before colonoscopy scheduled on 03/01/2019. She was given Plavix after the stent was placed in the L internal carotid 2-3 years ago and has always been compliant with her medication. 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 She is undergoing colonoscopy to determine the etiology of her chronic diarrhea. She states she has had chronic diarrhea for 10 years which has been gradually worsening and is now having up to 12 bowelmovements/day. Per patient, GI workup has been negative thus far. ROS questions to the patient. Cardiac: chest pain, shortness of breath, easy fatigue, arrhythmia, swelling of legs. Respiratory: cough, with sputum production, wheezing, insomnia. G.I.: nausea, vomiting, (+) diarrhea, poor appetite, blood in stool, difficult swallow. Urinary: pain with urination, blood with urination, incontinence, difficulty urinating. Skin: discoloration, itching, change in hair or nails, skin breakdown. Hematology/immunology: easy bruising, malignancy. Head, nose, throat: ringing of ears, loss of hearing, nosebleeds, sores in mouth, hoarseness, facial pain. Neurology: dizziness, tremor, change in speech, seizures, fainting spells, loss of memory, weakness arm or leg, numbness arm or leg, word finding defect. Endocrine: hot cold intolerance, excessive urination, increased thirst, increased sweating. Psychiatric: disorientation, depression, anxiety, mood disorder, loss of contact with reality, anger. Eyes: change in vision, eye pain, double vision, blurred vision, eyelid droop. Skeletal: pain in joints, muscle pain, back pain, neck pain, swelling of joints, swelling of the hands. Pertinent patient responses: (+) diarrhea, remainder of ROS was negative PMH: has a past medical history of CHF (congestive heart failure), Depression, DM (diabetes mellitus), HTN (hypertension), IBS (irritable bowel syndrome), and Thyroid disease. Current Outpatient Medications: levothyroxine 50 mcg tablet, Take 1 tablet by mouth every morning., Disp: 30 tablet, Rfl: 0 bisacodyl (DULCOLAX, BISACODYL,) 5 mg EC tablet, Take 1 tablet by mouth as needed (for bowel prep prior to colonoscopy)., Disp: 2 tablet, Rfl: 0 peg-electrolyte soln 236-22.74-6.74 -5.86 gram solution, Take as directed before colonoscopy, Disp: 4000 mL, Rfl: 0 albendazole 200 mg tablet, albendazole 200 mg tablet, Disp: , Rfl: amitriptyline 10 mg tablet, amitriptyline 10 mg tablet, Disp: , Rfl: amitriptyline 25 mg tablet, amitriptyline 25 mg tablet, Disp: , Rfl: amLODIPine 10 mg tablet, amlodipine 10 mg tablet, Disp: , Rfl: atorvastatin 20 mg tablet, atorvastatin 20 mg tablet, Disp: , Rfl: carvedilol 12.5 mg tablet, carvedilol 12.5 mg tablet, Disp: , Rfl: clopidogrel 75 mg tablet, clopidogrel 75 mg tablet, Disp: , Rfl: fluconazole 150 mg tablet, fluconazole 150 mg tablet, Disp: , Rfl: furosemide 40 mg tablet, furosemide 40 mg tablet, Disp: , Rfl: gabapentin 300 mg capsule, gabapentin 300 mg capsule, Disp: , Rfl: insulin aspart U-100 (NOVOLOG FLEXPEN U-100 INSULIN) 100 unit/mL injection, Novolog Flexpen U-100 Insulin aspart 100 unit/mL (3 mL) subcutaneous, Disp: , Rfl: insulin glargine U-300 conc (TOUJEO MAX U-300 SOLOSTAR) 300 unit/mL (3 mL) InPn, Toujeo Max U-300 SoloStar 300 unit/mL (3 mL) subcutaneous insulin pen, Disp: , Rfl: KCL 20 mEq tablet, potassium chloride ER 20 mEq tablet,extended release(part/cryst), Disp: , Rfl: sacubitril-valsartan (ENTRESTO) 49-51 mg tablet, Entresto 49 mg-51 mg tablet, Disp: , Rfl: traZODONE 50 mg tablet, trazodone 50 mg tablet, Disp: , Rfl: venlafaxine XR 75 mg 24 hr capsule, venlafaxine ER 75 mg capsule,extended release 24 hr, Disp: , Rfl: amitriptyline 10 mg tablet, , Disp: , Rfl: mupirocin 2 % ointment, , Disp: , Rfl: VALCYTE 450 mg tablet, , Disp: , Rfl: Family History Problem Relation Age of Onset Other - see comments Mother Multiple sclerosis Heart Father At the age of 53 Other - see comments Sister Ovarian cancer - 51 Diabetes Brother Diabetes Brother Cancer Brother HEENT cancer - Lip Social History Socioeconomic History Marital status: Spouse name: Not on file Number of children: Not on file Years of education: Not on file Highest education level: Not on file Occupational History Not on file Social Needs Financial resource strain: Not on file Food insecurity: Worry: Not on file Inability: Not on file Transportation needs: Medical: Not on file Non-medical: Not on file Tobacco Use Smoking status: Former Smoker Packs/day: 1.00 Years: 15.00 Pack years: 15.00 Last attempt to quit: 1995 Years since quittin.7 Smokeless tobacco: Former User Substance and Sexual Activity Alcohol use: No Drug use: Not Currently Comment: Smokd marijuana in the past Sexual activity: Not on file Lifestyle Physical activity: Days per week: Not on file Minutes per session: Not on file Stress: Not on file Relationships Social connections: Talks on phone: Not on file Gets together: Not on file Attends lutheran service: Not on file Active member of club or organization: Not on file Attends meetings of clubs or organizations: Not on file Relationship status: Not on file Intimate partner violence: Fear of current or ex partner: Not on file Emotionally abused: Not on file Physically abused: Not on file Forced sexual activity: Not on file Other Topics Concern Not on file Social History Narrative Not on file Vital signs: BP 135/77 | Pulse 91 | Temp 36.3 C (97.4 F) (Oral) | Resp 18 | Ht 1.651 m (5' 5") | Wt 121.3 kg (267 lb 6 oz) | BMI 44.49 kg/m Mental Status: well-kept and appears stated age, alert and oriented times three, cooperative during the exam, attention and concentration normal, historic clothing and costume maker and expression intact, fund of information normal, recent and remote memory intact, affect/mood normal and relaxed. Cranial nerves (vision, eye movement): EOM intact, equal reactive pupils, accommodation reflex present, full visual pearl. Opthalmoloscopic: absent papilledema, optic disc margins sharp, no retinal hemorrhages, exudates not apparent. Cranial nerves (face): normal mastication, facial sensation normal, facial motor normal, corneal reflex not done. Cranial nerves (taste, smell): taste intact by history, smell intact by history. Cranial nerve (hearing): normal conversational hearing, finger rub WNL. Cranial nerve (accessory): normal r/l sternomastoid bulk/tone/power. Shoulder shrug right and left normal. Cranial nerve (tongue): tongue bulk normal, tongue midline, palate centered. Peripheral motor: Arms: Strength, tone, power normal bilaterally. Legs: Strength, tone, power normal bilaterally. Reflexes: Arms: Triceps, biceps, brachioradialis 2+ and symmetrical Legs: Patelllar, ankle jerks 2 + and symmetrical. Toes downgoing bilaterally. Peripheral sensation: Arms: light touch intact, primary sharp touch normal, vibration symmetrical, proprioception normalbilaterally. Legs: light touch intact, primary sharp touch normal, vibration symmetrical, proprioception normal bilaterally. Coordination: Bilateral Eoqxqs-dp-nquf and finger tapping normal. Bilateral RAH motions symmetrical. Gait: gait normal, arm swing intact, romberg negative. Tandem walk normal, can balance on one foot or the other. HEENT: A/N, no oropharyngeal lesion present, JVD absent, thyromegaly absent, no lymphadenopathy present. Lungs: lungs clear, no wheezing, no rhonchi. Heart: CV RRR, no murmurs, carotid bruit present on L side Peripheral vascular: no peripheral cyanosis, clubbing absent, no peripheral edema present, intact peripheral pulses, extremities warm to touch. Musculoskeletal: normal cervical ROM,. ASSESSMENT AND RECOMMENDATIONS: ICD-10-CM ICD-9-CM 1. Stenosis of left carotid artery I65.22 433.10 2. Essential hypertension I10 401.9 3. DM (diabetes mellitus), secondary uncontrolled E13.65 249.01 4. Diarrhea, unspecified type R19.7 787.91 Impression: The patient is scheduled to undergo colonoscopy on 03/01/2019. We were asked to advise GIon holding Plavix before colonoscopy. Mrs. Lizarraga has many cardiovascular risk factors including DM2,HLD, HTN, hx of carotid stenosis, and CHF, so it would be best to hold Plavix for the least amount of time possible, given the increased risk of stroke associated with discontinuation. At this time, jorge also order a carotid duplex u/s looking for evidence of re-stenosis. Plan: Carotid stenosis s/p L IC stent placement (2-3 years ago) HTN DM2 HLD - carotid duplex u/s bilateral - hold plavix for before colonoscopy at least amount of time possible. Mauricio Noguera, [id number] signed by Marty Wang MD at 02/23/2019 8:48 AM CDTdocumented in this encounter Plan of Treatment Date Type Specialty Care Team Description 03/01/2019 Hospital Encounter Surgery Meli Viera Evelyn, MD unspecified type [address] [facility] [address] [place], [place] [address] 03/01/2019 Anesthesia Event Surgery Darnell Ruffin, DO [address] [facility] [place] [address] 03/01/2019 Surgery Surgery Meli Viera COLONOSCOPY MD [place] [address] [facility] [address] [place], [place] [address] 04/08/2019 Appointment Echocardiograph Tte, [facility] 05/19/2019 Office Visit Cardiology Alice Martinez MD [address] [place] [address] Health Maintenance Due Date Last Done Comments HgA1C 1961 PNEUMOCOCCAL 0-64 YEARS COMBINED SERIES (1 1966 of 1 - PPSV23) EYE EXAM 1970 LDL-C 1970 URINE MICROALBUMIN 1970 FOOT EXAM 1978 DTaP,Tdap,and Td Vaccines (1 - Tdap) 1979 PAP SMEAR 1981 COLONOSCOPY 2010 Zoster Recombinant Vaccine (SHINGRIX) (1 2010 of 2) INFLUENZA VACCINE (#1) 2019 MAMMOGRAM 11/05/2019 11/04/2018 CREATININE (SERUM) 01/01/2020 12/31/2018, 01/02/2018 HEPATITIS C (HCV) SCREEN Completed 10/21/2018 documented as of this encounter Results Not on filedocumented in this encounter Visit Diagnoses Diagnosis Stenosis of left carotid artery - Primar y Occlusion and stenosis of carotid artery without mention of cerebral infarction Essential hypertension Unspecified essential hypertension DM (diabetes mellitus), secondary uncont rolled Secondary diabetes mellitus without ment ion of complication, uncontrolled Diarrhea, unspecified type documented in this encounter Insurance Payer Benefit Plan / Subscriber ID Effective Phone Address T e Group Dates [facility] xxxxxxxxx 2018-[place] [employer]UID[place] Medic aid HEALTH CHOICE - [employer] nt [id number] 1 MANAGED MEDICAID [place], [place] MEDICAID [phone] documented as of this encounter
--- OUTSIDE RECORDS SUMMARY | 2019-09-28 06:50 | XMS REPORT | Summary of Care ---
:1960 Author Organization [facility] Address [address] [place] [address] Care Team Providers Name Role Phone Tomasa Patino Primary Care Provider Reason for Visit Reason Comments Notification Encounter Details Date Type Department Care Team Description 02/11/2019 Telephone [facility] Cardiology- Risa Ulrich MBBS Notification [address] [address] [address] [phone] [place] [address] [phone] Allergies Active Allergy Reactions Severity Noted Date Comments Codeine Swelling 01/02/2018 documented as of this encounter (statuses as of 02/11/2019) Medications Medication Sig Dispensed Refills Start Date [...] as of this encounter (statuses as of 02/11/2019) Active Problems Problem Noted Date Diarrhea, unspecified type 12/31/2018 Overview: Added automatically from request for khalida rosalia [id number] Carpal tunnel syndrome of right wrist 09/28/2018 Overview: Added automatically from request for khalida rosalia [id number] documented as of this encounter (statuses as of 02/11/2019) Social History Tobacco Use Types Packs/Day Years [...] 02/16/2019 Office Visit Neurology Marty Wang MD [address] [place] [address] 03/01/2019 Hospital Encounter Surgery Meli Viera Evelyn, MD unspecified type [address] [place], [place] [address] 03/01/2019 Surgery Surgery Meli Viera MD [address] [place], [place] [address] 04/08/2019 Appointment Echocardiograph Tte, [facility] 05/19/2019 Office Visit Cardiology Alice Martinez MD [address] [place] [address] Health Maintenance Due Date Last [...] / Subscriber ID Effective Phone Address T [facility] xxxxxxxxx 2018-Prese [address] Medic aid HEALTH CHOICE - HEALTH CHOICE nt [id number] 1 MANAGED MEDICAID [place], [place] MEDICAID [address] documented as of this encounter
--- OUTSIDE RECORDS SUMMARY | 2019-09-28 06:50 | XMS REPORT | Summary of Care ---
:1960 Author Organization [facility] Address [address] [place] [address] Care Team Providers Name Role Phone Tomasa Patino Primary Care Provider Encounter Details Date Type Department Care Team Description 02/16/2019 Orders Only [facility] Doctor Unassigned, No [address] [facility] Name [place] [phone] [place] [address] Allergies Active Allergy Reactions Severity Noted Date Comments Codeine Swelling 01/02/2018 documented as of this encounter (statuses as of 02/16/2019) Medications Medication Sig Dispensed Refills Start Date [...] as of this encounter (statuses as of 02/16/2019) Active Problems Problem Noted Date Diarrhea, unspecified type 12/31/2018 Overview: Added automatically from request for khalida rosalia [id number] Carpal tunnel syndrome of right wrist 09/28/2018 Overview: Added automatically from request for khalida rosalia [id number] documented as of this encounter (statuses as of 02/16/2019) Social History Tobacco Use Types Packs/Day Years [...] Description 03/01/2019 Hospital Encounter Surgery Meli Viera Diarrhe a, unspecified MD [place] type [address] [place] [address] [phone] 03/01/2019 Surgery Surgery Meli Viera MD [address] [place] [address] [phone] 04/08/2019 Appointment Echocardiograph Tte, [facility] 05/19/2019 Office Visit Cardiology Alice Martinez MD [address] [place] [address] [phone] Health Maintenance Due Date Last Done Comments [...] Name Priority Date/Time Associated Diagnosis Comme nts NO SHOW OR MISSED Routine 02/16/2019 8:44 AM APPOINTMENT POLICY CDT ACKNOWLEDGEMENT documented in this encounter Results Not on filedocumented in this encounter Insurance Payer Benefit Plan / Subscriber ID Effective Phone Address T [facility] xxxxxxxxx 2018-Prese [address] Medic aid HEALTH CHOICE - HEALTH CHOICE nt [id number] 1 MANAGED MEDICAID [place], [place] MEDICAID [phone] documented as of this encounter
--- OUTSIDE RECORDS SUMMARY | 2019-09-28 06:51 | XMS REPORT | Summary of Care ---
:1960 Author Organization [facility] Address [address] [place] [address] Care Team Providers Name Role Phone Tomasa Patino Primary Care Provider Reason for Visit Reason Comments Other Encounter Details Date Type Department Care Team Description 02/26/2019 Telephone [facility] Rayna Simon Other Clinics MD Nicolasa [address] [place] [phone] [place] [address] Allergies Active Allergy Reactions Severity Noted Date Comments Codeine Swelling 01/02/2018 documented as of this encounter (statuses as of 02/26/2019) Medications Medication Sig Dispensed Refills Start Date [...] as of this encounter (statuses as of 02/26/2019) Active Problems Problem Noted Date Morbid obesity with body mass index of 40.0-49.9 02/22 Diarrhea, unspecified type 12/31/2018 Overview: Added automatically from request for khalida rosalia [id number] Carpal tunnel syndrome of right wrist 09/28/2018 Overview: Added automatically from request for khalida rosalia [id number] documented as of this encounter (statuses as of 02/26/2019) Social History Tobacco Use Types Packs/Day Years Used Date Former Smoker 15 Quit: 1995 Smokeless Tobacco: Former User [...] unspecified type [address] [place], [place] [address] 03/01/2019 Anesthesia Event Surgery Darnell Ruffin, [address] [place] [address] 03/01/2019 Surgery Surgery Meli Viera MD [address] [place], [place] [address] 04/08/2019 Appointment Echocardiograph Tte, [facility] 05/19/2019 Office Visit Cardiology Alice Martinez MD [address] [place] [address] Health Maintenance Due Date Last [...] / Subscriber ID Effective Phone Address T [facility] xxxxxxxxx 2018-Prese [address] Medic aid HEALTH CHOICE - HEALTH CHOICE nt [id number] 1 MANAGED MEDICAID [place], [place] MEDICAID [phone] documented as of this encounter
--- OUTSIDE RECORDS SUMMARY | 2019-09-28 06:51 | XMS REPORT | Summary of Care ---
:1960 Author Organization [facility] Address [address] [place] [address] Care Team Providers Name Role Phone Tomasa Patino Primary Care Provider Reason for Referral (YARI) Status Reason Specialty Diagnoses / Referred By Referred To Procedures Contact Contact Closed Vascular Sonography Diagnoses Stenosis of left carotid artery Marty Wang Procedures CAROTID DUPLEX BILATERAL BY VASCULAR LAB MD Luc [address] [place] [address]. [place] [address] Reason for Visit Reason Comments Follow-up (YARI) Status Reason Specialty Diagnoses / Referred By Referred To Procedures Contact Contact New Request Neurology Diagnoses Carotid artery disease, unspecified laterality, unspecified type Robbin Roblero MD Procedures REFERRAL NEUROLOGY [address] [place] [address] [address] [place] [address] Encounter Details Date Type Department Care Team Description 02/16/2019 Office Visit [facility] Marty Wang Stenosis of left carotid artery (Primary Dx); Neurology-Uma Calle MD Essential hypertension; [address] DM (diabetes mellitus), secondary uncont rolled; [address], [address] [place], [place] Diarrhea, unspecified type [place] [phone] Allergies Active Allergy Reactions Severity Noted Date [...] Added automatically from request for khalida lindsey [id number] Carpal tunnel syndrome of right wrist 09/28/2018 Overview: Added automatically from request for khalida lindsey [id number] documented as of this encounter (statuses as [...] evaluation and management service. Marty Wang MD Pigment Pusher Neurology HISTORY OF PRESENT ILLNESS: Josie Lizarraga [...] file Gets together: Not on file Attends moravian service: Not on file Active member of [...] during the exam, attention and concentration normal, sales receptionist and expression intact, fund of information normal, [...] vibration symmetrical, proprioception normal bilaterally. Coordination: Bilateral Ebwdlp-jt-thsv and finger tapping normal. Bilateral RAH motions [...] least amount of time possible. Mauricio Noguera, [id number] signed by Marty Wang MD at 02/23/2019 8:48 AM CDTdocumented in this encounter Plan of Treatment Date Type Specialty Care Team Description 03/01/2019 Hospital Encounter Surgery Meli Viera Evelyn, MD unspecified type [address] [facility] [address] [place], [place] [address] 03/01/2019 Anesthesia Event Surgery Darnell Ruffin, DO [address] [facility] [place] [address] 03/01/2019 Surgery Surgery Meli Viera COLONOSCOPY MD [place] [address] [facility] [address] [place], [place] [address] 04/08/2019 Appointment Echocardiograph Tte, [facility] 05/19/2019 Office Visit Cardiology Alice Martinez MD [address] [place] [address] Health Maintenance Due Date Last [...] Effective Phone Address T e Group Dates [facility] xxxxxxxxx 2018-[place] GUIDRY Medic aid HEALTH CHOICE [place] [id number] 1 MANAGED MEDICAID [place], [place]ID [phone] 1 documented as of this encounter
--- OUTSIDE RECORDS SUMMARY | 2019-09-28 06:51 | XMS REPORT | Summary of Care ---
:1960 Author Organization [facility] Address [address] [place] [address] Care Team Providers Name Role Phone Tomasa Patino Primary Care Provider Reason for Visit Reason Comments Other Encounter Details Date Type Department Care Team Description 02/26/[address] [facility] and Ryana Simon Other Clinics MD Nicolasa [address] [place] [phone] 3968 [place] [address] Allergies Active Allergy Reactions Severity Noted Date [...] Added automatically from request for khalida rosalia [id number] Carpal tunnel syndrome of right wrist 09/28/2018 Overview: Added automatically from request for khalida rosalia [id number] documented as of this encounter (statuses as [...] unspecified type [address] [place], [place] [address] 03/01/2019 Anesthesia Event Surgery Darnell Ruffin, [address] [place] [address] 03/01/2019 Surgery Surgery Meli Viera MD [address] [place], [place] [address] 04/08/2019 Appointment Echocardiograph Tte, [facility] Eco 05/19/2019 Office Visit Cardiology Alice Martinez MD [address] [place] [address] Health Maintenance Due Date Last [...] / Subscriber ID Effective Phone Address T [facility] xxxxxxxxx 2018-Prese P[address]O. BOX Medic aid HEALTH CHOICE - HE[place] nt [id number] 1 MANAGED MEDICAID [place], [place] MEDICAID [address] documented as of this encounter
--- OUTSIDE RECORDS SUMMARY | 2019-09-28 06:51 | XMS REPORT | Summary of Care ---
:1960 Author Organization [facility] Address [address] [place] [address] Care Team Providers Name Role Phone Tomasa Patino Primary Care Provider Reason for Visit Reason Comments Other Encounter Details Date Type Department Care Team Description 02/26/[address] [facility] and Rayna Simon Other Clinics MD Nicolasa [address] [place] [phone] [place] [address] Allergies Active Allergy Reactions Severity Noted Date [...] Added automatically from request for khalida rosalia [id number] Carpal tunnel syndrome of right wrist 09/28/2018 Overview: Added automatically from request for khalida rosalia [id number] documented as of this encounter (statuses as [...] unspecified type [address] [place], [place] [address] 03/01/2019 Anesthesia Event Surgery Darnell Ruffin, [address] [place] [address] 03/01/2019 Surgery Surgery Meli Viera MD [address] [place], [place] [address] 04/08/2019 Appointment Echocardiograph Tte, [facility] Eco 05/19/2019 Office Visit Cardiology Alice Martinez MD [address] [place] [address] Health Maintenance Due Date Last [...] / Subscriber ID Effective Phone Address T [facility] xxxxxxxxx 2018-Prese P[address]OX Medic aid HEALTH CHOICE - HEALTH CHOICE nt [id number] 1 MANAGED MEDICAID [place], [place] MEDICAID [address] documented as of this encounter
--- OUTSIDE RECORDS SUMMARY | 2019-09-28 06:52 | XMS REPORT | Summary of Care ---
:1960 Author Organization [facility] Address [address] [place] [address] Care Team Providers Name Role Phone Tomasa Patino Primary Care Provider Reason for Visit Reason Comments Forms cardiac clearance Encounter Details Date Type Department Care Team Description 06/25/2019 Telephone [facility] Alice Martinez, Forms (ms rdiac Cardiology- [facility] MD clearance) [address] [place] [address] [phone] Allergies Active Allergy Reactions Severity Noted Date Comments Codeine Swelling 01/02/2018 documented as of this encounter (statuses as of 06/25/2019) Medications Medication Sig Dispensed Refills Start Date [...] 0 Active tablet tablet amitriptyline 25 mg 50 mg. 0 Active tablet atorvastatin 20 mg atorvastatin 20 mg 0 Active tablet tablet carvedilol 12.5 mg carvedilol 12.5 mg 0 Active tablet tablet KCL 20 mEq tablet potassium chloride 0 Active ER 20 mEq tablet,extended release(part/cryst) bisacodyl (DULCOLAX, Take 1 tablet by 2 tablet 0 12/31/2018 Active BISACODYL,) 5 mg EC mouth as needed (for tabletIndications: bowel prep prior to Diarrhea, colonoscopy). unspecified type levothyroxine 50 mcg Take 1 tablet by 30 tablet 0 01/06/2019 Active tabletIndications: mouth every morning. Diarrhea, unspecified type insulin degludec inject under the 0 Active (TRESIBA FLEXTOUCH skin. U-100) 100 unit/mL (3 mL) InPn budesonide-formotero Inhale 2 Puffs 2 0 Active l (SYMBICORT) (two) times daily. 160-4.5 mcg/actuation inhaler furosemide 40 mg Take 1 tablet by 60 tablet 6 05/19/2019 Active tablet mouth 2 (two) times daily. documented as of this encounter (statuses as of 06/25/2019) Active Problems Problem Noted Date Morbid obesity with body mass index of 40.0-49.9 02/22 Diarrhea, unspecified type 12/31/2018 Overview: Added automatically from request for khalida rosalia [id number] Carpal tunnel syndrome of right wrist 09/28/2018 Overview: Added automatically from request for khalida rosalia [id number] documented as of this encounter (statuses as of 06/25/2019) Social History Tobacco Use Types Packs/Day Years [...] Treatment Date Type Specialty Care Team Description 08/18/2019 Office Visit Pulmonary Disease Rosangela Chowdhury MD [address] [facility] [address] [place], [place] [address] [phone] 08/19/2019 Office Visit Cardiology Alice Martinez MD [address] [place] [address] [phone] Health Maintenance Due Date Last Done Comments HgA1C 1961 PNEUMOCOCCAL 0-64 YEARS COMBINED 1966 SERIES (1 of 1 - PPSV23) EYE EXAM 1970 LDL-C 1970 URINE MICROALBUMIN 1970 DTaP,Tdap,and Td Vaccines (1 - Tdap) 1971 FOOT EXAM 1978 PAP SMEAR 1981 Zoster Recombinant Vaccine (SHINGRIX) 2010 (1 of 2) INFLUENZA VACCINE (#1) 2019 Breast Cancer Screening (MAMMOGRAM) 11/05/2019 11/04/2018 CREATININE (SERUM) 05/19/2020 05/19/2019, 12/31/2018, 01/02/2018 COLONOSCOPY 03/01/2029 03/01/2019 HEPATITIS C (HCV) SCREEN Completed 10/21/2018 documented as of this encounter Results Not on filedocumented in this encounter Insurance Payer Benefit Plan / Subscriber ID Effective Phone Address T e Group [facility] xxxxxxxxx 2018-Prese P.O. BOX Medic aid HEALTH CHOICE - HEALTH CHOICE nt [id number] 1 MANAGED MEDICAID [place], [place] MEDICAID [address] documented as of this encounter
--- OUTSIDE RECORDS SUMMARY | 2019-09-28 06:52 | XMS REPORT | Summary of Care ---
:1960 Author Organization [facility] Address [address] [place] [address] Care Team Providers Name Role Phone Tomasa Patino Primary Care Provider Reason for Visit Reason Comments Orders Encounter Details Date Type Department Care Team Description 06/30/2019 Telephone [facility] Cardiology- Alice Martinez MD Orders [place] [address] [address] [place], [place] [address] [place] [address] [phone] Allergies Active Allergy Reactions Severity Noted Date Comments Codeine Swelling 01/02/2018 documented as of this encounter (statuses as of 07/06/2019) Medications Medication Sig Dispensed Refills Start Date [...] as of this encounter (statuses as of 07/06/2019) Active Problems Problem Noted Date Morbid obesity with body mass index of 40.0-49.9 02/22 Diarrhea, unspecified type 12/31/2018 Overview: Added automatically from request for khalida rosalia [id number] Carpal tunnel syndrome of right wrist 09/28/2018 Overview: Added automatically from request for khalida rosalia [id number] documented as of this encounter (statuses as of 07/06/2019) Social History Tobacco Use Types Packs/Day Years [...] Treatment Date Type Specialty Care Team Description 07/08/2019 Office Visit Cardiology Alice Martinez MD [address] [place] [address] [phone] 08/18/2019 Office Visit Pulmonary Disease Rosangela Chowdhury MD [address] [address] [phone] 08/19/2019 Office Visit Cardiology Alice Martinez MD [address] [place] [address] [phone] Health Maintenance Due Date Last Done Comments [...] Effective Phone Address T e Group Dates [facility] xxxxxxxxx 2018-Prese P.O. BOX Medic aid HEALTH CHOICE - HEALTH CHOICE nt [id number] 1 MANAGED MEDICAID [place], [place] MEDICAID [address] documented as of this encounter
--- OUTSIDE RECORDS SUMMARY | 2019-09-28 06:52 | XMS REPORT | Summary of Care ---
:[address] [facility] Address [address] [place] [address] Care Team Providers Name Role Phone Tomasa Patino Primary Care Provider Reason for Visit Reason Comments Orders Encounter Details Date Type Department Care Team Description 06/30/2019 Telephone [facility]- Alice Martinez MD Orders [address] [place] [address] [address] [place], [place] [address] [place] [address] [phone] Allergies Active Allergy Reactions Severity Noted Date Comments Codeine Swelling 01/02/2018 documented as of this encounter (statuses as of 07/02/2019) Medications Medication Sig Dispensed Refills Start Date [...] as of this encounter (statuses as of 07/02/2019) Active Problems Problem Noted Date Morbid obesity with body mass index of 40.0-49.9 02/22 Diarrhea, unspecified type 12/31/2018 Overview: Added automatically from request for khalida rosalia [id number] Carpal tunnel syndrome of right wrist 09/28/2018 Overview: Added automatically from request for khalida rosalia [id number] documented as of this encounter (statuses as of 07/02/2019) Social History Tobacco Use Types Packs/Day Years [...] 07/08/2019 Office Visit Cardiology Alice Martinez MD [address] [place] [address] [phone] 08/18/2019 Office Visit Pulmonary Disease Rosangela Chowdhury MD [address] [address] [phone] 08/19/2019 Office Visit Cardiology Alice Martinez MD [address] [place] [address] [phone] Health Maintenance Due Date Last Done Comments [...] Effective Phone Address T e Group Dates [facility] xxxxxxxxx 2018-Prese P.O. BOX Medic aid HEALTH CHOICE - HEALTH CHOICE nt [id number] 1 MANAGED MEDICAID [place], [place] MEDICAID [phone] documented as of this encounter
--- OUTSIDE RECORDS SUMMARY | 2019-09-28 06:53 | XMS REPORT | Summary of Care ---
:1960 Author Organization [facility] Address [address] [place] [address] Care Team Providers Name Role Phone Tomasa Patino Primary Care Provider Reason for Visit Reason Comments LAB WORK Auth/Cert Status Reason Specialty Diagnoses / Procedures Referred By Ruddy ontact Referred To Contact Phlebotomy Diagnoses Chronic heart failure with preserved ejection fraction Adc Pob Lab Draw Procedures mg Professional Office Building [address] [place] [address] , [address] [place] [address] Phone: Fax: Encounter Details Date Type Department Care Team Description 07/12/2019 Newsroom Intern Visit [facility] Alice Martinez MD [address] [place], [place] [address] Chronic heart Professional Office Pob, Adc Lab Main failure with Building Phlebotomy preserve d ejection Lab fraction Professional Office Building [address] [place] [address] , [address] [place] [address] Allergies Active Allergy Reactions Severity Noted Date Comments Codeine Swelling 01/02/2018 documented as of this encounter (statuses as of 07/12/2019) Medications Medication Sig Dispensed Refills Start Date [...] (two) times daily. 160-4.5 mcg/actuation inhaler furosemide 80 mg Take 1 tablet by 60 tablet 2 07/09/2019 Active tablet mouth 2 (two) times daily. documented as of this encounter (statuses as of 07/12/2019) Active Problems Problem Noted Date Morbid obesity with body mass index of 40.0-49.9 02/22 Diarrhea, unspecified type 12/31/2018 Overview: Added automatically from request for khalida lindsey [id number] Carpal tunnel syndrome of right wrist 09/28/2018 Overview: Added automatically from request for khalida lindsey [id number] documented as of this encounter (statuses as of 07/12/2019) Social History Tobacco Use Types Packs/Day Years [...] Treatment Date Type Specialty Care Team Description 07/16/2019 Appointment Cardiac [facility] In[facility] 08/18/2019 Office Visit Pulmonary Disease Rosangela Chowdhury MD [address] [address] [phone] 08/19/2019 Office [place] [address] [place] [address] [phone] Health Maintenance Due Date Last Done Comments HgA1C 1961 PNEUMOCOCCAL 0-64 YEARS COMBINED 1966 SERIES (1 of 1 - PPSV23) EYE EXAM 1970 LDL-C 1970 URINE MICROALBUMIN 1970 DTaP,Tdap,and Td Vaccines (1 - 1971 Tdap) FOOT EXAM 1978 PAP SMEAR 1981 Zoster Recombinant Vaccine 2010 (SHINGRIX) (1 of 2) INFLUENZA VACCINE (#1) 2019 Breast Cancer Screening 11/05/2019 11/04/2018 (MAMMOGRAM) CREATININE (SERUM) 07/08/2020 07/08/2019, 05/19/2019, 12/31/2018, Additional history exists COLONOSCOPY 03/01/2029 03/01/2019 HEPATITIS C (HCV) SCREEN Completed 10/21/2018 documented as of this encounter Results Not on filedocumented in this encounter Visit Diagnoses Diagnosis Chronic heart failure with preserved eje ction fraction documented in this encounter Insurance Payer Benefit Plan / Subscriber ID Effective Phone Address T ype Group Dates [facility] xxxxxxxxx 2018-[place] [employer] Medic aid HEALTH CHOICE - HEALTH CHOICE nt [id number] 1 MANAGED MEDICAID [place], [place] MEDICAID [phone] (Work) documented as of this encounter
--- OUTSIDE RECORDS SUMMARY | 2019-09-28 06:53 | XMS REPORT | Summary of Care ---
:1960 Author Organization [facility] Address [address] [place] [address] Care Team Providers Name Role Phone Tomasa Patino Primary Care Provider Reason for Visit (Routine) Status Reason Specialty Diagnoses / Procedures Referred By Ruddy ontact Referred To Contact Closed Cardiology Diagnoses Chronic heart failure with preserved ejection fraction Alice Martinez, Procedures Cardiac Cath Request for Service (Cardiology Use Only) [address] [place] [address] Phone: Encounter Details Date Type Department Care Team Description 07/16/[place] [facility] [place] [address] [place] [address] Status post left heart Encounter [place] [address] [place] [address] catheterization Catheterization Lab Outpt-Serena, Ccl (Primary Dx) [facility], 6th Floor [address] [facility] [address], [address] [place] [address] Allergies Active Allergy Reactions Severity Noted Date Comments Codeine Swelling 01/02/2018 documented as of this encounter (statuses as of 07/17/2019) Medications Medication Sig Dispensed Refills Start Date [...] as of this encounter (statuses as of 07/17/2019) Active Problems Problem Noted Date Morbid obesity with body mass index of 40.0-49.9 02/22 Diarrhea, unspecified type 12/31/2018 Overview: Added automatically from request for khalida lindsey [id number] Carpal tunnel syndrome of right wrist 09/28/2018 Overview: Added automatically from request for khalida lindsey [id number] documented as of this encounter (statuses as of 07/17/2019) Social History Tobacco Use Types Packs/Day Years [...] Sign Reading Time Taken Comments Blood Pressure 142/67 07/16/2019 12:55 PM ESCAPEMENT MATCHER standing Pulse 71 07/16/2019 12:30 PM ESCAPEMENT MATCHER Temperature - - Respiratory Rate 18 07/16/2019 12:55 PM ESCAPEMENT MATCHER Oxygen Saturation 95% 07/16/2019 12:55 PM ESCAPEMENT MATCHER Inhaled Oxygen Concentration - - Weight 122.9 kg (271 lb) 07/16/2019 7:06 AM ESCAPEMENT MATCHER Height 160 cm (5' 3") 07/16/2019 7:06 AM ESCAPEMENT MATCHER Body Mass Index 48.01 07/16/2019 7:06 AM ESCAPEMENT MATCHER documented in this encounter Discharge Instructions Connie Michelle RN - 07/16/2019 Patient Discharge Instructions Follow instructions as indicated below: Discharge Orders Activity As Tolerated Lift nothing heavier than 5 pounds for 2 weeks Do not operate a motorized vehicle for 2 days Keep area dry and clean Do not remove band-aid for the first 24 hours after procedure Do not soak in bathtub or hot tub for the first 24 hours after procedure Watch for bleeding, swelling, pain, fever, and any discharge call the Polishing Machine Operator (during hours) Order Comments: At nights, weekends or holidays, call the [facility] marking machine operator at . Ask the marking machine operator to page the Cardiac Cath Fellow who is on-call. Avoid making important life decisions for the first 48 hours No strenuous activity for 72 hours Drink plenty of water Continue previous outpatient medications Resume pre procedure diet Order Comments: Resume pre procedure diet Weight: In general, sudden weight gains or losses should be reported to your provider. Cardiac patients should weigh daily and notify their provider for a weight gain of 3 pounds per day or 5 pounds per week. Follow-up appointments: To schedule other appointments, call the [facility] at or . You may also make appointments online by going to [email or web address] and follow the RequestAppointment quicklink. Take Home Medications These are medications ordered for you by your healthcare provider. Do not take any other medicationsor supplements unless advised by your healthcare provider. Patient's Medications START taking these medications No medications on file CONTINUE taking these medications which have NOT CHANGED ALBENDAZOLE 200 MG TABLET albendazole 200 mg tablet AMITRIPTYLINE 10 MG TABLET AMITRIPTYLINE 10 MG TABLET amitriptyline 10 mg tablet AMITRIPTYLINE 25 MG TABLET 50 mg. AMLODIPINE 10 MG TABLET amlodipine 10 mg tablet ATORVASTATIN 20 MG TABLET atorvastatin 20 mg tablet BISACODYL (DULCOLAX, BISACODYL,) 5 MG EC TABLET Take 1 tablet by mouth as needed (for bowel prepprior to colonoscopy). BUDESONIDE-FORMOTEROL (SYMBICORT) 160-4.5 MCG/ACTUATION INHALER Inhale 2 Puffs 2 (two) times daily. CARVEDILOL 12.5 MG TABLET carvedilol 12.5 mg tablet CLOPIDOGREL 75 MG TABLET clopidogrel 75 mg tablet FLUCONAZOLE 150 MG TABLET fluconazole 150 mg tablet FUROSEMIDE 80 MG TABLET Take 1 tablet by mouth 2 (two) times daily. GABAPENTIN 300 MG CAPSULE gabapentin 300 mg capsule INSULIN ASPART U-100 (NOVOLOG FLEXPEN U-100 INSULIN) 100 UNIT/ML INJECTION Novolog Flexpen U-100Insulin aspart 100 unit/mL (3 mL) subcutaneous INSULIN DEGLUDEC (TRESIBA FLEXTOUCH U-100) 100 UNIT/ML (3 ML) INPN inject under the skin. INSULIN GLARGINE U-300 CONC (TOUJEO MAX U-300 SOLOSTAR) 300 UNIT/ML (3 ML) INPN Toujeo Max U-300SoloStar 300 unit/mL (3 mL) subcutaneous insulin pen KCL 20 MEQ TABLET potassium chloride ER 20 mEq tablet,extended release(part/cryst) LEVOTHYROXINE 50 MCG TABLET Take 1 tablet by mouth every morning. MUPIROCIN 2 % OINTMENT SACUBITRIL-VALSARTAN (ENTRESTO) 49-51 MG TABLET Entresto 49 mg-51 mg tablet TRAZODONE 50 MG TABLET trazodone 50 mg tablet VALCYTE 450 MG TABLET VENLAFAXINE XR 75 MG 24 HR CAPSULE venlafaxine ER 75 mg capsule,extended release 24 hr START taking Modified Medications as Prescribed No medications on file STOP taking these medications No medications on file Medications: Your doctor may prescribe medicine to prevent blood clots. You may also have to take medicine to prevent chest pain. Take your medicine as usual after the procedure unless your doctor has told you to stop. Any changes in your medicine's schedule will be explained to you. For questions regarding follow-up instructions call the [facility] at or For worsening symptoms/changing condition/problems or questions: During normal business hours call the [facility] Cardiac Polishing Machine Operator at . At nights, weekends or holidays, call the [facility] marking machine operator at . Ask the marking machine operator to page the Cardiac Cath Fellow who is on-call. Emergency: Go to the closest emergency room or call 528 Signs and Symptoms of a Problem: Call your doctor if you have any of the following problems: Fever Swelling, pain, redness around the puncture site Foul smell or drainage from the site Odd changes in sensations, like numbness, tingling, coldness or pain in the arm or leg where the catheter was inserted. If you start Bleeding: Apply pressure to the site. If the bleeding continues, have someone call your doctor and make arrangements to see him/her. Please follow the doctor's directions. Our Goal is to Always Provide You with Very Good Care! We will be mailing you a survey, Please complete and return at your convenience. Thank You TOBACCO AVOIDANCE Exposure to tobacco either from smoking or from second hand (environmental) smoke or smokeless tobacco (snuff) is damaging to your health. This information is to encourage everyone to avoid tobacco exposure. It is recommended that you: ? If you smoke or use smokeless tobacco, we encourage you to quit. ? If you have already quit smoking, continue your good work! ? If you do not smoke or use smokeless tobacco, do not start. ? Avoid secondhand smoke. Additional Resources You may want to contact these organizations for further information on smoking and how to quit. [place] [employer], http://www.lungusa.org/stop-smoking/ [place] [employer], http://www.cancer.org/Healthy/StayAwayfromTobacco/index [place] [employer], http://www.heart.org/HEARTORG/GettingHealthy/QuitSmoking/Quit-Smoking_[facility] _001085_SubHomePage.jsp documented in this encounter Plan of Treatment Date Type Specialty Care Team Description 08/18/2019 Office Visit Pulmonary Disease Rosangela Chowdhury MD [address] [address] [phone] 08/19/2019 Office Visit Cardiology Alice Martinez MD [address] [place] [address] [phone] Health Maintenance Due Date Last Done Comments [...] filedocumented in this encounter Visit Diagnoses Diagnosis Status post left heart catheterization - Primary documented in this encounter Administered Medications Medication Order MAR Action Action Date Dose Rate Site aspirin tablet Given 07/16/2019 9:29 AM ESCAPEMENT MATCHER 325 mg Oral, TITRATE - FOR PROCEDURE USE, 1 dose, Starting Fri07/16/19 at 0929, Until Fri07/16/19 at 0929, Routine clopidogreL (PLAVIX) tablet 75 mg Given 07/16/2019 7:15 AM ESCAPEMENT MATCHER 75 mg 75 mg, Oral, PRE-PROCEDURE ONCE, 1 dose, Starting Fri07/16/19 at 0819, Until Fri07/16/19 at 0715, Routine, Surgery/Procedure FENTanyl PF (SUBLIMAZE (PF)) injection Given 07/16/2019 9:39 AM ESCAPEMENT MATCHER 25 mcg Slow IV Push, TITRATE - FOR PROCEDURE USE, 1 dose, Starting Fri07/16/19 at 0939, Until Fri07/16/19 at 0939, Routine FENTanyl PF (SUBLIMAZE (PF)) injection Given 07/16/2019 9:58 AM ESCAPEMENT MATCHER 25 mcg Slow IV Push, TITRATE - FOR PROCEDURE USE, 1 dose, Starting Fri07/16/19 at 0958, Until Fri07/16/19 at 0958, Routine heparin 1,000 unit/mL injection Given 07/16/2019 10:03 AM ESCAPEMENT MATCHER 2,500 Units Slow IV Push, TITRATE - FOR PROCEDURE USE, 1 dose, Starting Fri07/16/19 at 1003, Until Fri07/16/19 at 1003, Routine lidocaine 1% (PF) (XYLOCAINE) injection Given 07/16/2019 9:52 AM ESCAPEMENT MATCHER 10 mL Infiltration, TITRATE - FOR PROCEDURE USE, 1 dose, Starting Fri07/16/19 at 0952, Until Fri07/16/19 at 0952, Routine midazolam (VERSED) injection Given 07/16/2019 9:39 AM ESCAPEMENT MATCHER 1 mg IV Push, TITRATE - FOR PROCEDURE USE, 1 dose, Starting Fri07/16/19 at 0939, Until Fri07/16/19 at 0939, Routine midazolam (VERSED) injection Given 07/16/2019 9:58 AM ESCAPEMENT MATCHER 1 mg IV Push, TITRATE - FOR PROCEDURE USE, 1 dose, Starting Fri07/16/19 at 0958, Until Fri07/16/19 at 0958, Routine nitroglycerin (TRIDIL) 2 mg in 10 mL D5W Given 07/16/2019 10:03 AM ESCAPEMENT MATCHER 200 mcg for Cardiac Cath Intravenous, TITRATE - FOR PROCEDURE USE, 1 dose, Starting Fri07/16/19 at 1003, Until Fri07/16/19 at 1003, Routine verapamil (ISOPTIN) injection Given 07/16/2019 10:03 AM ESCAPEMENT MATCHER 2.5 mg Intravenous, TITRATE - FOR PROCEDURE USE, 1 dose, Starting Fri07/16/19 at 1003, Until Fri07/16/19 at 1003, Routine documented in this encounter Insurance Payer Benefit Plan / Subscriber ID Effective Phone Address T e Group [facility] xxxxxxxxx 2018-[place] GUIDRY Medic aid HEALTH CHOICE - [place] nt [id number] 1 MANAGED MEDICAID [place], [place] MEDICAID [phone] (Work) documented as of this encounter
--- OUTSIDE RECORDS SUMMARY | 2019-09-28 06:53 | XMS REPORT | Summary of Care ---
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 [address] Allergies Active Allergy Reactions Severity Noted Date Comments Codeine Swelling 01/02/2018 documented as of this encounter (statuses as of 07/08/2019) Medications Medication Sig Dispensed Refills Start Date [...] as of this encounter (statuses as of 07/08/2019) Active Problems Problem Noted Date Morbid obesity with body mass index of 40.0-49.9 02/22 Diarrhea, unspecified type 12/31/2018 Overview: Added automatically from request for khalida rosalia [id number] Carpal tunnel syndrome of right wrist 09/28/2018 Overview: Added automatically from request for khalida rosalia [id number] documented as of this encounter (statuses as of 07/08/2019) Social History Tobacco Use Types Packs/Day Years [...] Description 07/08/2019 Office Visit Cardiology Alice Martinez Chronic h eart failure with preserved ejection [address] [facility] fraction ( Primary Dx) [place] [address] [phone] 08/18/2019 Office Visit Pulmonary Disease Tonio Chowdhury MD [address] [place] [address] 77 15 08/19/2019 Office Visit Cardiology Alice Martinez MD [address] [place] [address] [phone] Name Type Priority Associated Diagnoses Date/Ti me N-TERMINAL PRO-BNP LAB Routine Chronic heart failure 07/08/2019 3:47 PM KNIFEMAN with preserved ejection fraction BASIC METABOLIC PANEL LAB Routine Chronic heart failu re 07/08/2019 3:47 PM KNIFEMAN (NA, K, CL, CO2, with preserved ejection GLUCOSE, BUN, fraction CREATININE, CA) Health Maintenance Due Date Last Done Comments [...] Effective Phone Address T ype Group Dates [facility] xxxxxxxxx 2018-[place] PJennifer GUIDRY Medic aid HEALTH CHOICE - HEALTH [place] nt [id number] 1 [facility] MEDICAID [place], [place] MEDICAID [phone] (Work) documented as of this encounter
--- OUTSIDE RECORDS SUMMARY | 2019-09-28 06:53 | XMS REPORT | Summary of Care ---
:1960 Author Organization [facility] Address [address] [place] [address] Care Team Providers Name Role Phone Tomasa Patino Primary Care Provider Reason for Referral (Routine) Status Reason Specialty Diagnoses / Referred By Referred To Procedures Contact Contact New Request Sleep Disorder Diagnoses Chronic heart failure with preserved ejection fraction Alice Martinez Diagnostic Procedures SLEEP STUDY, ETIENNE Enciso MD [address] [place] [address] Reason for Visit Reason Comments Orders Encounter Details Date Type Department Care Team Description 07/16/2019 Telephone [facility] Cardiology- Alice Martinez MD Orders [place] [address] [facility] [place] [id number] [place] [address] [phone] [phone] Allergies Active Allergy Reactions Severity Noted Date Comments Codeine Swelling 01/02/2018 documented as of this encounter (statuses as of 07/16/2019) Medications Medication Sig Dispensed Refills Start Date [...] as of this encounter (statuses as of 07/16/2019) Active Problems Problem Noted Date Morbid obesity with body mass index of 40.0-49.9 02/22 Diarrhea, unspecified type 12/31/2018 Overview: Added automatically from request for khalida lindsey [id number] Carpal tunnel syndrome of right wrist 09/28/2018 Overview: Added automatically from request for khalida lindsey [id number] documented as of this encounter (statuses as of 07/16/2019) Social History Tobacco Use Types Packs/Day Years [...] Pulmonary Disease Rosangela Chowdhury MD [address] 77 [address] [phone] 08/19/2019 Office Visit Cardiology Alice Martinez MD [address] [place] [address] [phone] Name Type Priority Associated Diagnoses Order S chedule SLEEP STUDY, PROCEDURES Routine Chronic heart failure 1 Occu rrences starting ATTENDED with preserved 07/16/2019 un til ejection fraction 07/16/2020 Health Maintenance Due Date Last Done Comments [...] heart failure with preserved eje ction fraction - Primary documented in this encounter Insurance Payer Benefit Plan / Subscriber ID Effective Phone Address T [facility] Group [facility] xxxxxxxxx 2018-[place] Medic aid HEALTH CHOICE - HEALTH [employer] nt [id number] 1 MANAGED MEDICAID [place], [place] [phone] documented as of this encounter
--- OUTSIDE RECORDS SUMMARY | 2019-09-28 06:54 | XMS REPORT | Summary of Care ---
:1960 Author Organization [facility] Address [address] [place] [address] Care Team Providers Name Role Phone Tomasa Patino Primary Care Provider Reason for Visit Reason Comments Forms Surg Clearance Encounter Details Date Type Department Care Team Description 07/21/2019 Telephone [facility] Alice Martinez, Forms (Chatterjee rg Clearance) Cardiology- [facility] [address] [address] [place] [address] [phone] Allergies Active Allergy Reactions Severity Noted Date Comments Codeine Swelling 01/02/2018 documented as of this encounter (statuses as of 07/23/2019) Medications Medication Sig Dispensed Refills Start Date [...] as of this encounter (statuses as of 07/23/2019) Active Problems Problem Noted Date Morbid obesity with body mass index of 40.0-49.9 02/22 Diarrhea, unspecified type 12/31/2018 Overview: Added automatically from request for khalida rosalia [id number] Carpal tunnel syndrome of right wrist 09/28/2018 Overview: Added automatically from request for khalida rosalia [id number] documented as of this encounter (statuses as of 07/23/2019) Social History Tobacco Use Types Packs/Day Years [...] Treatment Date Type Specialty Care Team Description 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 Medic aid HEALTH CHOICE - HEALTH CHOICE nt [id number] 1 MANAGED MEDICAID [place] [phone] documented as of this encounter
--- OUTSIDE RECORDS SUMMARY | 2019-09-28 06:54 | XMS REPORT | Summary of Care ---
:1960 Author Organization [facility] Address [address] [place] [address] Care Team Providers Name Role Phone Tomasa Patino Primary Care Provider Reason for Visit Reason Comments SNORING (Routine) Status Reason Specialty Diagnoses / Referred By Referred To Procedures Contact Contact Closed Sleep Disorder Diagnoses Chronic heart failure with preserved ejection fraction Alice Martinez Diagnostic Procedures SLEEP STUDY, ETIENNE Enciso MD [address] [place] [address] Encounter Details Date Type Department Care Team Description 07/27/2019 Transmission Systems Operator Visit [facility] Sleep Kourtney Chowdhury MD [address] [place] [address] [address] LIOR (obstructive Disorder Center- 1, [facility] Sleep Lab Bed sleep apnea) [address] [place] [address] Allergies Active Allergy Reactions Severity Noted Date Comments Codeine Swelling 01/02/2018 documented as of this encounter (statuses as of 07/28/2019) Medications Medication Sig Dispensed Refills Start Date [...] as of this encounter (statuses as of 07/28/2019) Active Problems Problem Noted Date Morbid obesity with body mass index of 40.0-49.9 02/22 Diarrhea, unspecified type 12/31/2018 Overview: Added automatically from request for khalida lindsey [id number] Carpal tunnel syndrome of right wrist 09/28/2018 Overview: Added automatically from request for khalida lindsey [id number] documented as of this encounter (statuses as of 07/28/2019) Social History Tobacco Use Types Packs/Day Years [...] Visit Pulmonary Disease Rosangela Chowdhury MD [address] [address] 08/19/2019 Office [place] [address] [place], [place] [address] [phone] Health Maintenance Due Date Last Done Comments [...] filedocumented in this encounter Visit Diagnoses Diagnosis LIOR (obstructive sleep apnea) Obstructive sleep apnea (adult) (pediatr ic) documented in this encounter Insurance Payer Benefit Plan / Subscriber ID Effective Phone Address T [facility] Group Dates [facility] xxxxxxxxx 2018-[place] GUIDRY Medic aid HEALTH CHOICE - HEALTH CHOICE nt [id number] 1 MANAGED MEDICAID [place] [phone] 531 (Work) documented as of this encounter
--- OUTSIDE RECORDS SUMMARY | 2019-09-28 06:55 | XMS REPORT | Summary of Care ---
:1960 Author Organization [facility] - [facility] Address [address] [place] [address] Care Team Providers Name Role Phone Tomasa Patino Primary Care Provider Encounter Details Date Type Department Care Team Description 07/27/2019 Orders Only [facility] Doctor Unassigned, No [address] [facility] [address] [address] [place] [address] Allergies Active Allergy Reactions Severity Noted Date Comments Codeine Swelling 01/02/2018 documented as of this encounter (statuses as of 07/29/2019) Medications Medication Sig Dispensed Refills Start Date [...] as of this encounter (statuses as of 07/29/2019) Active Problems Problem Noted Date Morbid obesity with body mass index of 40.0-49.9 02/22 Diarrhea, unspecified type 12/31/2018 Overview: Added automatically from request for khalida rosalia [id number] Carpal tunnel syndrome of right wrist 09/28/2018 Overview: Added automatically from request for khalida rosalia [id number] documented as of this encounter (statuses as of 07/29/2019) Social History Tobacco Use Types Packs/Day Years [...] Pulmonary Disease Rosangela Chowdhury MD [address] [facility] [address] [place], [place] [address] [phone] 08/19/2019 Office Visit Cardiology Alice Martinez MD [address] [place] [address] [phone] Health Maintenance Due Date Last Done Comments [...] Name Priority Date/Time Associated Diagnosis Comme nts SLEEP STUDY DATA REPORT Routine 07/27/2019 12:01 AM NETWORKER documented in this encounter Results Not on filedocumented in this encounter Insurance Payer Benefit Plan / Subscriber ID Effective Phone Address T ype Group [facility] xxxxxxxxx 2018-Prese [address] Medic aid HEALTH CHOICE - HEALTH CHOICE nt [id number] 1 MANAGED MEDICAID [place], [place] [phone] documented as of this encounter
--- OUTSIDE RECORDS SUMMARY | 2019-09-28 06:55 | XMS REPORT | Summary of Care ---
:1960 Author Organization [facility] Address [address] [place] [address] Care Team Providers Name Role Phone Tomasa Patnio Primary Care Provider Reason for Visit Reason Comments New Patient Results Diagnostic & Titration SS (Routine) Status Reason Specialty Diagnoses / Referred By Referred To Procedures Contact Contact New Request Sleep Disorder Diagnoses Chronic heart failure with preserved ejection fraction Alice Martinez Diagnostic Procedures CONSULT/REFERRAL SLEEP CLINIC ADULT CASSIUS Enciso MD [address] [place] [address] Encounter Details Date Type Department Care Team Description 08/18/2019 Office Visit [facility] ADC Tonio Chowdhury Obstruc tive sleep Pulmonary Clinic MD Maggie apnea (Primary Dx) [address], [address] [place], [place] [phone] Allergies Active Allergy Reactions Severity Noted Date Comments Codeine Swelling 01/02/2018 documented as of this encounter (statuses as of 08/18/2019) Medications Medication Sig Dispensed Refills Start Date End Date Status clopidogrel 75 mg clopidogrel 75 mg 0 Active tablet tablet sacubitril-valsart Entresto 49 mg-51 0 Active an (ENTRESTO) mg tablet 49-51 mg tablet insulin aspart Novolog Flexpen 0 Active U-100 (NOVOLOG U-100 Insulin FLEXPEN U-100 aspart 100 unit/mL INSULIN) 100 (3 mL) unit/mL injection subcutaneous venlafaxine XR 75 venlafaxine ER 75 0 Active mg 24 hr capsule mg capsule,extended release 24 hr KCL 20 mEq tablet potassium chloride 0 Active ER 20 mEq tablet,extended release(part/cryst ) levothyroxine 50 Take 1 tablet by 30 tablet 0 01/06/2019 Active mcg mouth every tabletIndications: morning. Diarrhea, unspecified type insulin degludec inject under the 0 Active (TRESIBA FLEXTOUCH skin. U-100) 100 unit/mL (3 mL) InPn budesonide-formote Inhale 2 Puffs 2 0 Active rol (SYMBICORT) (two) times daily. 160-4.5 mcg/actuation inhaler furosemide 80 mg Take 1 tablet by 60 tablet 2 07/09/2019 Active tablet mouth 2 (two) times daily. amitriptyline 10 0 08/18/2018 08/18/19 Di scontinued mg tablet 20 mupirocin 2 % 0 08/18/2018 08/18/19 Disco ntinued ointment 20 VALCYTE 450 mg 0 08/26/2018 08/18/19 Disc ontinued tablet 20 albendazole 200 mg albendazole 200 mg 0 Discontinued tablet tablet 20 amLODIPine 10 mg amlodipine 10 mg 0 Discontinued tablet tablet 20 fluconazole 150 mg fluconazole 150 mg 0 Discontinued tablet tablet 20 gabapentin 300 mg gabapentin 300 mg 0 08/07 06/28 Discontinued capsule capsule 20 insulin glargine Toujeo Max U-300 0 Discontinued U-300 conc (TOUJEO SoloStar 300 20 MAX U-300 unit/mL (3 mL) SOLOSTAR) 300 subcutaneous unit/mL (3 mL) insulin pen InPn traZODONE 50 mg trazodone 50 mg 0 08/18/19 Discontinued tablet tablet 20 amitriptyline 10 amitriptyline 10 0 Discontinued mg tablet mg tablet 20 amitriptyline 25 50 mg. 0 08/18/19 Dis continued mg tablet 20 atorvastatin 20 mg atorvastatin 20 mg 0 Discontinued tablet tablet 20 carvedilol 12.5 mg carvedilol 12.5 mg 0 Discontinued tablet tablet 20 bisacodyl Take 1 tablet by 2 tablet 0 12/31/2018 08/18/19 Di scontinued (DULCOLAX, mouth as needed 20 BISACODYL,) 5 mg (for bowel prep EC prior to tabletIndications: colonoscopy). Diarrhea, unspecified type documented as of this encounter (statuses as of 08/18/2019) Active Problems Problem Noted Date Morbid obesity with body mass index of 40.0-49.9 02/22 Diarrhea, unspecified type 12/31/2018 Overview: Added automatically from request for khalida lindsey [id number] Carpal tunnel syndrome of right wrist 09/28/2018 Overview: Added automatically from request for khalida rosalia [id number] documented as of this encounter (statuses as of 08/18/2019) Social History Tobacco Use Types Packs/Day Years [...] Sign Reading Time Taken Comments Blood Pressure 126/80 08/18/2019 9:30 AM CDT Pulse 57 08/18/2019 9:30 AM CDT Temperature - - Respiratory Rate 18 08/18/2019 9:30 AM CDT Oxygen Saturation 90% 08/18/2019 9:30 AM CDT Inhaled Oxygen Concentration - - Weight 117.9 kg (260 lb) 08/18/2019 9:30 AM CDT Height 160 cm (5' 3") 08/18/2019 9:30 AM CDT Body Mass Index 46.06 08/18/2019 9:30 AM CDT documented in this encounter Progress Notes Tonio Chowdhury MD - 08/18/2019 10:00 AM CDTReason for Clinic Visit: The patient comes to clinic today for a review of sleep study results. Chief Complaints: The patient reports: daytime fatigue, snoring, witnessed apneas. History of Present Illness: The usual bed time is 8 p.m. and wake up time is 6-8 a.m. After a typical nights sleep, the patient often feels tired and unrefreshed. The patient does not take intentional naps during the day. The patient does not suffer from irresistible sleep attacks during the day.The patient does not experience sudden loss of muscle tone when emotional or excited. The patient does not report vivid dream-like images and loss of muscle tone when falling asleep and upon awakening. [address] Sleepiness Scale score: 9 (0-24). Social History: The patient does not smoke cigarettes. The patient does not drink alcoholic beverages. Caffeinated beverages consumption: 1-2 per day. Family History: The family history is positive for snoring in blood relatives. Physical Examination: 1) Vital signs: as noted above. 2) General: the patient is pleasant, well developed, and in NAD. 3) Skin: there are no rashes, edema, or abnormal pigmentation. 4) Head: there are no skull deformities or pathological facial asymmetry. 5) Eyes: pupils are equal, round, and reactiveto light; extraocular movements are conjugate and unrestricted, without strabismus or nystagmus. 6) ENT: oropharynx reveals low set soft palate and elongated uvula; the patient displays a good sniff through both the right and left nostril. 7) Neck: there are no distended veins or enlarged lymph nodes.8) Back: straight, spine - without pathological curvatures. 9) Bilateral lower extremities are without edema. 10) Neurological - patient is alert, oriented and answers questions appropriately. Review of Systems: 1)Respiratory: positive for snoring and witnessed apneas; 2)Cardiovascular: positive for hypertension; 3)Endocrine/Metabolic: positive for diabetes mellitus; 4)Digestive: negative for abnormalities; 5)Urinary: positive for nocturia; 6)Skeletal: no skeletal abnormalities detected; 7)Muscular: negative f or muscular abnormalities; 8)Nervous: no neurological or psychological abnormalities; 9)Integumentary: no visible or reported skin or hair abnormalities; 10)Reproductive: no reproductive abnormalities noted; 11)Immune/Lymphatic/Allergy: positive for respiratory allergies. Sleep Study Results: The diagnostic polysomnography on 06/10/19 revealed respiratory disturbance indexof 59.2 events/hr of total sleep with a minimum oxygen saturation of 49% during the recording. Afterthe therapeutic night on 07/27/19, APAP was prescribed at a pressure of 5-20 cm H2O for home use. Diagnosis: Severe Obstructive Sleep Apnea Syndrome G47.33 Recommendations and Patient Education: I reviewed the results of the study with the patient as well as the therapeutic options, which include PAP, Mandibular Advancement Device, ENT surgery, and weight reduction. At this time the patient would like to try PAP treatment at home and I have therefore prescribed a PAP device at 5-20 cm H2O pressure. The importance of regular PAP treatment at all times during sleep was stressed in the discussion with the patient. Possible PAP treatment side effects were also discussed with the patient. Additional time was spent discussing sleep hygiene including: regular bedtime and wake-up times; enough sleep hours; going to bed only when sleepy; using bed for the sole purpose of sleeping; avoidanceof: 1) caffeinated and alcoholic beverages, 2) strenuous cognitive activity, or 3) heavy meals in the evening. The patient was instructed to contact us in case of any further questions, concerns, problems, or side effects of PAP treatment. I will see the patient in 31-90 days for a follow up clinic visit to evaluate PAP treatment compliance. documented in this encounter Plan of Treatment Date Type Specialty Care Team Description 08/19/2019 Office Visit Cardiology Alice Martinez MD [address] [place] [address] [phone] Health Maintenance Due Date Last Done Comments [...] filedocumented in this encounter Visit Diagnoses Diagnosis Obstructive sleep apnea - Primary Obstructive sleep apnea (adult) (pediatr ic) documented in this encounter Insurance Payer Benefit Plan / Subscriber ID Effective Phone Address T ype Group Dates [facility] xxxxxxxxx 2018-[place] [address] Medic aid HEALTH CHOICE - [place] nt [id number] 1 MANAGED MEDICAID [place], [place] MEDICAID [phone] (Work) documented as of this encounter
--- OUTSIDE RECORDS SUMMARY | 2019-09-28 06:55 | XMS REPORT | Summary of Care ---
:1960 Author Organization [facility] Address [address] [place] [address] Care Team Providers Name Role Phone Tomasa Patino Primary Care Provider Reason for Visit Reason Comments New Patient Results Diagnostic & Titration SS (Routine) Status Reason Specialty Diagnoses / Referred By Referred To Procedures Contact Contact New Request Sleep Disorder Diagnoses Chronic heart failure with preserved ejection fraction Alice Martinez Diagnostic Procedures CONSULT/REFERRAL SLEEP CLINIC ADULT CASSIUS Enciso MD [address] [place] [address] Encounter Details Date Type Department Care Team Description 08/18/2019 Office Visit [facility] ADC Tonio Chowdhury Obstruc tive sleep Pulmonary Clinic MD Maggie apnea (Primary Dx) [address], [address] [place], [place] [address] [phone] Allergies Active Allergy Reactions Severity Noted Date [...] Added automatically from request for khalida lindsey [id number] Carpal tunnel syndrome of right wrist 09/28/2018 Overview: Added automatically from request for khalida rosalia [id number] documented as of this encounter (statuses as [...] tone when falling asleep and upon awakening. [place] Sleepiness Scale score: 9 (0-24). Social History: [...] 08/19/2019 Office Visit Cardiology Alice Martinez MD [address] [place] [address] [phone] Health Maintenance Due Date Last Done Comments [...] Effective Phone Address T ype Group Dates [facility] xxxxxxxxx 2018-[place] [address] Medic aid HEALTH CHOICE - HEALTH CHOICE nt [id number] 1 MANAGED MEDICAID [place] [phone] (Work) documented as of this encounter
--- OUTSIDE RECORDS SUMMARY | 2019-09-28 06:55 | XMS REPORT | Summary of Care ---
:1960 Author Organization [facility] Address [address] [place] [address] Care Team Providers Name Role Phone Tomasa Patino Primary Care Provider Reason for Visit Reason Comments Appointment Encounter Details Date Type Department Care Team Description 08/18/2019 Telephone [facility] Cardiology- Alice Martinez MD Appointment [place] [address] [place], [place] [address] [place] [address] [phone] Allergies Active Allergy Reactions Severity Noted [...] Added automatically from request for khalida rosalia [id number] Carpal tunnel syndrome of right wrist 09/28/2018 Overview: Added automatically from request for khalida rosalia [id number] documented as of this encounter (statuses as [...] Pulmonary Disease Rosangela Chowdhury MD [address] [facility] [address] [place], [place] [address] [phone] 08/19/2019 Office Visit Cardiology Alice Martinez MD [address] [place] [address] [phone] Name Type Priority Associated Diagnoses Order S chedule BASIC METABOLIC PANEL LAB Routine Chronic heart failu re Expected: 08/18/2019, ([id number])(NA, K, CL, CO2, with preserved ej ection Expires: 08/17/2020 GLUCOSE, BUN, fraction CREATININE, CA) N-TERMINAL PRO-BNP LAB Routine Chronic heart failure Expected: 08/18/2019, with preserved ejection Expi res: 08/17/2020 fraction Health Maintenance Due Date Last Done Comments [...] Effective Phone Address T ype Group Dates [facility] xxxxxxxxx 2018-[place] [address] Medic aid HEALTH CHOICE - HEALTH CHOICE nt [id number] 1 MANAGED MEDICAID [place], [place] MEDICAID [phone] documented as of this encounter
--- OUTSIDE RECORDS SUMMARY | 2019-09-28 06:56 | XMS REPORT | Summary of Care ---
:1960 Author Organization [facility] Address [address] [place] [address] Care Team Providers Name Role Phone Tomasa Patino Primary Care Provider Reason for Visit Reason Comments Follow-up Encounter Details Date Type Department Care Team Description 08/19/2019 Office Visit [facility] Alice Martinez Chronic d iastolic heart failure (Primary Dx); Cardiology- [place] LIOR (obstructive sleep apnea); [address] Class 3 severe obesity due t o excess calories with body mass index (BMI) of 45.0 to 49.9 in adult, unspecified whether serious comorbidity present [address] [place] [phone] Allergies Active Allergy Reactions Severity Noted Date Comments Codeine Swelling 01/02/2018 documented as of this encounter (statuses as of 08/19/2019) Medications Medication Sig Dispensed Refills Start Date End Date Status clopidogrel 75 mg clopidogrel 75 mg 0 Active tablet tablet sacubitril-valsartan Entresto 49 mg-51 0 Active (ENTRESTO) 49-51 mg mg tablet tablet insulin aspart U-100 Novolog Flexpen 0 Active (NOVOLOG FLEXPEN U-100 Insulin U-100 INSULIN) 100 aspart 100 unit/mL unit/mL injection (3 mL) subcutaneous venlafaxine XR 75 mg venlafaxine ER 75 0 Active 24 hr capsule mg capsule,extended release 24 hr KCL 20 mEq tablet potassium chloride 0 Active ER 20 mEq tablet,extended release(part/cryst) levothyroxine 50 mcg Take 1 tablet by 30 tablet 0 01/06/2019 Active tabletIndications: mouth every Diarrhea, unspecified morning. type insulin degludec inject under the 0 Active (TRESIBA FLEXTOUCH skin. U-100) 100 unit/mL (3 mL) InPn budesonide-formoterol Inhale 2 Puffs 2 0 Active (SYMBICORT) 160-4.5 (two) times daily. mcg/actuation inhaler furosemide 80 mg Take 1 tablet by 60 tablet 2 07/09/2019 Active tablet mouth 2 (two) times daily. documented as of this encounter (statuses as of 08/19/2019) Active Problems Problem Noted Date Morbid obesity with body mass index of 40.0-49.9 02/22 Diarrhea, unspecified type 12/31/2018 Overview: Added automatically from request for khalida rosalia [id number] Carpal tunnel syndrome of right wrist 09/28/2018 Overview: Added automatically from request for khalida rosalia [id number] documented as of this encounter (statuses as of 08/19/2019) Social History Tobacco Use Types Packs/Day Years [...] Sign Reading Time Taken Comments Blood Pressure 140/80 08/19/2019 1:02 PM CDT Pulse 55 08/19/2019 1:02 PM CDT Temperature - - Respiratory Rate 18 08/19/2019 1:02 PM CDT Oxygen Saturation 95% 08/19/2019 1:02 PM CDT Inhaled Oxygen Concentration - - Weight 121 kg (266 lb 12.8 oz) 08/19/2019 1:02 PM CDT Height 160 cm (5' 3") 08/19/2019 1:02 PM CDT Body Mass Index 47.26 08/19/2019 1:02 PM CDT documented in this encounter Progress Notes Alice Martinez MD - 08/19/2019 1:30 PM CDT Cc: Chief Complaint Patient presents with Follow-up Josie Lizarraga is a 59 year old female. Presenting for follow up and pre op clearance. Overall feeling ok. Still with MARTINEZ NYHA III. No orthopnea, chest pain or PND reported. Her gastric sleeve operationis scheduled for Friday. Since last clinic visit she had cor angio which did not reveal and obstructive CAD Medications Outpatient Medications Prior to Visit Medication Sig Dispense Refill furosemide 80 mg tablet Take 1 tablet by mouth 2 (two) times daily. 60 tablet 2 budesonide-formoterol (SYMBICORT) 160-4.5 mcg/actuation inhaler Inhale 2 Puffs 2 (two) times daily. insulin degludec (TRESIBA FLEXTOUCH U-100) 100 unit/mL (3 mL) InPn inject under the skin. levothyroxine 50 mcg tablet Take 1 tablet by mouth every morning. 30 tablet 0 clopidogrel 75 mg tablet clopidogrel 75 mg tablet insulin aspart U-100 (NOVOLOG FLEXPEN U-100 INSULIN) 100 unit/mL injection Novolog Flexpen U-100Insulin aspart 100 unit/mL (3 mL) subcutaneous KCL 20 mEq tablet potassium chloride ER 20 mEq tablet,extended release(part/cryst) sacubitril-valsartan (ENTRESTO) 49-51 mg tablet Entresto 49 mg-51 mg tablet venlafaxine XR 75 mg 24 hr capsule venlafaxine ER 75 mg capsule,extended release 24 hr No facility-administered medications prior to visit. Review of Systems Constitutional: Positive for fatigue and weight loss. Negative for activity change. HENT: Negative for facial swelling. Respiratory: Positive for apnea and shortness of breath. Negative for chest tightness. Cardiovascular: Positive for leg swelling. Negative for chest pain and palpitations. Gastrointestinal: Negative for abdominal distention and abdominal pain. Genitourinary: Negative for difficulty urinating. Neurological: Negative for dizziness, syncope and light-headedness. Psychiatric/Behavioral: Negative for agitation. Endocrine: Positive for weight loss Vital Signs BP (!) 140/80 (BP Location: Right arm, Patient Position: Sitting, BP CUFF SIZE: Adult Large) | Pulse 55 | Resp 18 | Ht 5' 3" (1.6 m) | Wt 266 lb 12.8 oz (121 kg) | SpO2 95% | BMI 47.26 kg/m Physical Exam GA: NAD, morbidly obese Neck: difficult to assess JVD Heart: S1S2, No murmurs, rubs or gallops appreciated, distant Lungs: Clear to auscultation bilaterally Abdomen: Soft, Non tender, +bs Extremities: trace pitting edema, warm Neuro: grossly no focal deficits noted Assessment/Plan 1- ChronicHFpEF, NYHA III, improving NTproBNP but still elevated. 2-Essential hypertension: reasonable control 3-PAD: History of Left Internal Carotid artery stenosis 4-Type 2 DM on insulin 5-Morbid Obesity BMI 47, planned gastric sleeve on Friday 6- LIOR: severe , treatment pending, working on getting machine Ok to proceed with gastric sleeve surgery, patient will be low/moderate risk from cardiac standpoint Will reassess all above issues post gastric bypass documented in this encounter Plan of Treatment Date Type Specialty Care Team Description 11/24/2019 Office Visit Pulmonary Disease Rosangela Chowdhury MD [address] [address] [phone] 02/24/2020 Office Visit Cardiology Alice Martinez MD [address] [place] [address] [phone] Health Maintenance Due Date Last Done Comments HgA1C 1961 PNEUMOCOCCAL 0-64 YEARS COMBINED 1966 SERIES (1 of 1 - PPSV23) EYE EXAM 1970 LDL-C 1970 URINE MICROALBUMIN 1970 DTaP,Tdap,and Td Vaccines (1 - 1971 Tdap) FOOT EXAM 1978 PAP SMEAR 1981 Zoster Recombinant Vaccine 2010 (SHINGRIX) (1 of 2) INFLUENZA VACCINE (#1) 2019 Breast Cancer Screening 11/05/2019 11/04/2018 (MAMMOGRAM) CREATININE (SERUM) 08/17/2020 08/18/2019, 07/08/2019, 05/19/2019, Additional history exists COLONOSCOPY 03/01/2029 03/01/2019 HEPATITIS C (HCV) SCREEN Completed 10/21/2018 documented as of this encounter Results Not on filedocumented in this encounter Visit Diagnoses Diagnosis Chronic diastolic heart failure - Primar y LIOR (obstructive sleep apnea) Obstructive sleep apnea (adult) (pediatr ic) Class 3 severe obesity due to excess margarita ories with body mass index (BMI) of 45.0 to 49.9 in adult, unspecified whether spencer us comorbidity present documented in this encounter Insurance Payer Benefit Plan / Subscriber ID Effective Phone Address T ype Group Dates [facility] xxxxxxxxx 2018-[place] [address] Medic aid HEALTH CHOICE - HEALTH CHOICE nt [id number] 1 MANAGED MEDICAID [place], [place] MEDICAID [phone] (Work) documented as of this encounter
--- OUTSIDE RECORDS SUMMARY | 2019-09-28 06:56 | XMS REPORT | Summary of Care ---
:1960 Author Organization [facility] Address [address] [place] [address] Care Team Providers Name Role Phone Tomasa Patino Primary Care Provider Encounter Details Date Type Department Care Team Description 08/18/2019 Orders Only [facility] Doctor Unassigned, No [address] [facility] [place] [address] [address] [place] [phone] Allergies Active Allergy Reactions Severity Noted Date [...] Added automatically from request for khalida lindsey [id number] Carpal tunnel syndrome of right wrist 09/28/2018 Overview: Added automatically from request for khalida lindsey [id number] documented as of this encounter (statuses as [...] Date Type Specialty Care Team Description 08/18/2019 Supervisor [employer] Finishing Visit Phlebotomy Alice Martinez MD [address] [place] [address] [phone] Arrived [facility], [facility] Main 08/19/2019 Office Visit Cardiology Alice Martinez MD [address] [place] [address] [phone] 11/24/2019 Office Visit Pulmonary Disease Rosangela Chowdhury MD [address] [place] [address] [phone] Health Maintenance Due Date Last Done Comments [...] Name Priority Date/Time Associated Diagnosis Comme nts ASSIGNMENT OF BENEFITS Routine 08/18/2019 10:16 AM CDT documented in this encounter Results Not on filedocumented in this encounter Insurance Payer Benefit Plan / Subscriber ID Effective Phone Address T e Group Dates [facility] xxxxxxxxx 2018-[place] [address] Medic aid HEALTH CHOICE - HEALTH CHOICE nt [id number] 1 MANAGED MEDICAID [place], [place] MEDICAID [phone] documented as of this encounter
--- OUTSIDE RECORDS SUMMARY | 2019-09-28 06:56 | XMS REPORT | Summary of Care ---
:1960 Author Organization [facility] Address [address] [place] [address] Care Team Providers Name Role Phone Tomasa Patino Primary Care Provider Reason for Visit Reason Comments Forms Encounter Details Date Type Department Care Team Description 08/18/2019 Telephone [facility] ADC Pulmonary Tonio Luevano MD Forms Clinic [address] [place] [address] [place] [address] [phone] Allergies Active Allergy Reactions Severity Noted Date [...] Added automatically from request for khalida lindsey [id number] Carpal tunnel syndrome of right wrist 09/28/2018 Overview: Added automatically from request for khalida lindsey [id number] documented as of this encounter (statuses as [...] 08/19/2019 Office Visit Cardiology Alice Martinez MD [address] [place] [address] [phone] 11/24/2019 Office Visit Pulmonary Disease Rosangela Chowdhury MD [address] [address] Health Maintenance Due Date Last Done Comments [...] Subscriber ID Effective Phone Address T [facility] xxxxxxxxx 2018-[place] [address] Medic aid HEALTH CHOICE - HEALTH CHOICE nt [id number] 1 MANAGED MEDICAID [place] [phone] documented as of this encounter
--- OUTSIDE RECORDS SUMMARY | 2019-09-28 06:56 | XMS REPORT | Summary of Care ---
:1960 Author Organization [facility] - [facility] Address [address] [place] [id number] Care Team Providers Name Role Phone Tomasa Patino Primary Care Provider Reason for Visit Reason Comments Follow-up Encounter Details Date Type Department Care Team Description 08/19/2019 Office Visit [facility] Alice Martinez Chronic d iastolic heart failure (Primary Dx); Cardiology- [place] LI[facility] (obstructive sleep apnea); [address] Class 3 severe obesity due t o excess calories with body mass index (BMI) of 45.0 to 49.9 in adult, unspecified whether serious comorbidity present [address] [place] [id number] [phone] Allergies Active Allergy Reactions Severity Noted Date [...] 12/31/2018 Overview: Added automatically from request for khailda rosalia [id number] Carpal tunnel syndrome of right wrist 09/28/2018 Overview: Added automatically from request for khalida rosalia [id number] documented as of this encounter (statuses as [...] Pulmonary Disease Rosangela Chowdhury MD [address] [address] [phone] 02/24/2020 Office Visit Cardiology Alice Martinez MD [address] [place] [address] [phone] Health Maintenance Due Date Last Done Comments [...] Effective Phone Address T ype Group Dates [facility] [place] [address] [employer] [facility] HEALTH CHOICE - HEALTH CHOICE nt [id number] 1 MANAGED MEDICAID [place], [place]ICAID [phone] (Work) documented as of this encounter
--- OUTSIDE RECORDS SUMMARY | 2019-09-28 06:56 | XMS REPORT | Summary of Care ---
:1960 Author Organization [facility] Address [address] [place] [address] Care Team Providers Name Role Phone Tomasa Patino Primary Care Provider Reason for Visit Reason Comments LAB WORK Auth/Cert Status Reason Specialty Diagnoses / Procedures Referred By Ruddy ontact Referred To Contact Phlebotomy Diagnoses Chronic heart failure with preserved ejection fraction Adc Pob Lab Draw Procedures CARDIO IQ(R) PROBNP, N TERMINAL-Q Professional Office Building [address] [place] [address] , [address] [place] [address] Phone: Fax: Encounter Details Date Type Department Care Team Description 08/18/2019 [employer] [place] Visit [facility] Alice Martinez MD [address] [place], [place] [address] Chronic heart Professional Office Pob, Adc Lab Main failure with Building Phlebotomy preserve d ejection Lab fraction Professional Office Building [address] [place] [address] , [address] [place] [address] Allergies Active Allergy Reactions Severity [...] Added automatically from request for khalida rosalia [id number] Carpal tunnel syndrome of right wrist 09/28/2018 Overview: Added automatically from request for khalida rosalia [id number] documented as of this encounter (statuses as [...] 08/19/2019 Office Visit Cardiology Alice Martinez MD [address] [place] [address] [phone] 11/24/2019 Office Visit Pulmonary Disease Rosangela Chowdhury MD [address] [address] [phone] Name Type Priority Associated Diagnoses Date/Ti me BASIC METABOLIC PANEL LAB Routine Chronic heart failu re 08/18/2019 10:32 AM CDT (43217)(NA, K, CL, CO2, with preserved ej ection GLUCOSE, BUN, fraction CREATININE, CA) N-TERMINAL PRO-BNP LAB Routine Chronic heart failure 08/18/2019 10:32 AM CDT with preserved ejection fraction Health Maintenance Due Date Last Done [...] ID Effective Phone Address T e Group [facility] xxxxxxxxx 2018-[place] [address] [employer] HEALTH CHOICE - HEALTH CHOICE nt [id number] 1 MANAGED MEDICAID [place], [place] [phone] (Work) documented as of this encounter
--- NOTE | 2019-09-28 07:42 | RAD REPORT ---
EXAM DESCRIPTION: RAD - Foot Left 3 View - 09/28/2019 7:27 am CLINICAL HISTORY: Left Foot pain FINDINGS: No fracture or dislocation is seen. The bones are osteoporotic. No bony destructive lesion noted. Calcaneal spurs . 2 small radiopaque densities are present within the soft tissue adjacent to the fif th metatarsal. These may represent calcifications or foreign bodies.
--- NOTE | 2019-09-28 07:48 | ER ---
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 Well yesterday I bumped my foot with the sore spot on my other foot, causing the area to get agitated and started bleeding again, with my diabetes I just need to have it looked at. Denies any new trauma or injury to the foot/leg at this time. Coronavirus screen: Proceed with normal triage. Ebola Screen: Patient negative for fever greater than or equal to 101.5 degrees Fahrenheit, and additional compatible Ebola Virus Disease symptoms Patient denies exposure to infectious person. Patient denies travel to an Ebola-affected area in the 21 days before illness onset. No symptoms or risks identified at this time. Initial Sepsis Screen: Does the patient meet any 2 criteria? No. Patient's initial sepsis screen is negative. Does the patient have a suspected source of infection? No. Patient's initial sepsis screen is negative. Risk Assessment: Do you want to hurt yourself or someone else? Patient reports no desire to harm self or others. Onset of symptoms was September 28, 2019. 06:45 Method Of Arrival: Ambulatory 06:45 Acuity: FRACISCO 4 sg Historical: - Allergies: 06:52 Codeine; sg - Home Meds: 06:52 amitriptyline 10 mg Oral tab daily [Active]; amlodipine 10 mg tab 1 tab once daily sg [Active]; aspirin 81 mg Oral TbEC 1 tab once daily [Active]; atorvastatin 40 mg Oral tab 1 tab once daily [Active]; carvedilol 3.125 mg Oral tab 1 tab 2 times per day [Active]; clopidogrel 75 mg Oral tab 1 tab once daily [Active]; Fish Oil 500 mg Oral cpDR twice a day [Active]; furosemide 40 mg Oral tab 1 tab once daily [Active]; gabapentin 300 mg Oral cap daily [Active]; levothyroxine 75 mcg tab 1 tab once daily [Active]; losartan 100 mg Oral tab 1 tab once daily [Active]; paroxetine HCl 40 mg Oral tab 1 tab once daily [Active]; Potassium Chloride Oral [Active]; Toujeo SoloStar 300 unit/mL (1.5 mL) subcutaneous inpn 110 unit nightly [Active]; trazodone 50 mg Oral tab daily [Active]; Victoza 2-Beni 0.6 mg/0.1 mL (18 mg/3 mL) subcutaneous pnij 1.8 unit nightly [Active]; Vitamin D 5,000 units Oral twice a day [Active]; - PMHx: 06:52 CHF; Diabetes - IDDM; Hyperlipidemia; Hypertension; Hypothyroidism; sg - PSHx: 06:52 Tubal ligation; toe amputation; carotid stent; sg - Immunization history:: Adult Immunizations up to date. - Social history:: Smoking status: Patient denies any tobacco usage or history of. Screenin:52 Abuse screen: Denies threats or abuse. Nutritional screening: No deficits noted. jb4 Tuberculosis screening: No symptoms or risk factors identified. Fall Risk None identified. Assessment: 06:52 General: Appears in no apparent distress. comfortable, Behavior is calm, cooperative, jb4 appropriate for age. Pain: Complains of pain in arch of left foot Pain does not radiate. Pain currently is 2 out of 10 on a pain scale. Quality of pain is described as aching, Pain began 4 months ago Is intermittent. Neuro: Level of Consciousness is awake, alert, obeys commands, Oriented to person, place, time, situation. Cardiovascular: Patient's skin is warm and dry. Pulses are 3+ in left dorsalis pedis artery. Respiratory: Airway is patent Respiratory effort is even, unlabored, Respiratory pattern is regular, symmetrical. GI: No signs and/or symptoms were reported involving the gastrointestinal system. : No signs and/or symptoms were reported regarding the genitourinary system. EENT: No signs and/or symptoms were reported regarding the EENT system. Derm: Skin is intact, Skin is pink, warm \T\ dry. Musculoskeletal: Circulation, motion, and sensation intact. Capillary refill < 3 seconds, in left toes. Range of motion: intact in all extremities. 07:19 Reassessment: x-ray at bedside. em Vital Signs: 06:45 BP 126 / 71; Pulse 71; Resp 16; Temp 97.8(O); Pulse Ox 100% on R/A; Weight 111.13 kg jb4 (R); Height 5 ft. 3 in. (160.02 cm) (R); Pain 2/10; 06:45 Body Mass Index 43.40 (111.13 kg, 160.02 cm) jb4 ED Course: 06:43 Patient arrived in ED. cl3 06:47 El[facility] Saldana [facility]C [facility]. kb 06:47 Rula Acosta MD is Attending Physician. kb 06:50 Triage completed. sg 06:50 Arm band placed on. sg 06:52 Patient has correct armband on for positive identification. Bed in low position. Call jb4 light in reach. Side rails up X 1. Pulse ox on. NIBP on. 07:00 Jose Mullins, RN is Primary Nurse. em 07:27 Foot Left 3 View XRAY In Process Unspecified. EDMS 07:57 No provider procedures requiring assistance completed. Patient did not have IV access em during this emergency room visit. Administered Medications: No medications were administered Outcome: 07:47 Discharge ordered by MD. kb 07:57 Discharged to home ambulatory. em 07:57 Condition: good 07:57 Discharge instructions given to patient, Instructed on discharge instructions, follow up and referral plans. medication usage, Demonstrated understanding of instructions, follow-up care, medications, Prescriptions given X 1. 07:57 Patient left the ED. em Signatures: Dispatcher [employer] EDUT Eliane Saldana FNP-C FNP-Porfirio Priest, RN RN Jose Mullins, RN RN Theo Douglas, NADIA RN Tj West cl3
--- NOTE | 2019-09-28 07:48 | EDPHYS ---
Physician Documentation [facility] Name: Josie Lizarraga Age: 59 yrs Sex: Female : 1960 Arrival Date: 09/28/2019 Time: 06:43 Bed 20 Private MD: ED Physician Rula Acosta HPI: 09/27 07:00 This 59 yrs old Female presents to ER via Ambulatory with complaints of Foot kb Pain. 07:00 The patient presents with pain, that is acute, tenderness. The complaints affect the kb lateral side of left foot. Context: The problem was sustained at home, resulted from a direct blow, vacuum, the patient can fully bear weight, the patient is able to ambulate, Problem is a result from a previous injury: No. Onset: The symptoms/episode began/occurred 4 month(s) ago. Modifying factors: The symptoms are alleviated by nothing. the symptoms are aggravated by nothing. Associated signs and symptoms: The patient has no apparent associated signs or symptoms. Treatment prior to arrival includes: no previous treatment. Severity of symptoms: At their worst the symptoms were mild, moderate, in the emergency department the symptoms are unchanged. The patient has not experienced similar symptoms in the past. The patient has not recently seen a physician. Pt reports she hit her left lateral foot on the vacuum over 4 months ago. States it bled for a little while and eventually started getting better, but then she hit the same spot with her right foot while sleeping and causing it to bleed again about a week ago. Came in today to have it evaluated because she is diabetic. States she cannot see the area that well, but has had others look at it and say it looks ok. Historical: - Allergies: 06:52 Codeine; sg - Home Meds: 06:52 amitriptyline 10 mg Oral tab daily [Active]; amlodipine 10 mg tab 1 tab once daily sg [Active]; aspirin 81 mg Oral TbEC 1 tab once daily [Active]; atorvastatin 40 mg Oral tab 1 tab once daily [Active]; carvedilol 3.125 mg Oral tab 1 tab 2 times per day [Active]; clopidogrel 75 mg Oral tab 1 tab once daily [Active]; Fish Oil 500 mg Oral cpDR twice a day [Active]; furosemide 40 mg Oral tab 1 tab once daily [Active]; gabapentin 300 mg Oral cap daily [Active]; levothyroxine 75 mcg tab 1 tab once daily [Active]; losartan 100 mg Oral tab 1 tab once daily [Active]; paroxetine HCl 40 mg Oral tab 1 tab once daily [Active]; Potassium Chloride Oral [Active]; Toujeo SoloStar 300 unit/mL (1.5 mL) subcutaneous inpn 110 unit nightly [Active]; trazodone 50 mg Oral tab daily [Active]; Victoza 2-Beni 0.6 mg/0.1 mL (18 mg/3 mL) subcutaneous pnij 1.8 unit nightly [Active]; Vitamin D 5,000 units Oral twice a day [Active]; - PMHx: 06:52 CHF; Diabetes - IDDM; Hyperlipidemia; Hypertension; Hypothyroidism; sg - PSHx: 06:52 Tubal ligation; toe amputation; carotid stent; sg - Immunization history:: Adult Immunizations up to date. - Social history:: Smoking status: Patient denies any tobacco usage or history of. ROS: 06:59 Constitutional: Negative for fever, chills, and weight loss, Cardiovascular: Negative kb for chest pain, palpitations, and edema, Respiratory: Negative for shortness of breath, cough, wheezing, and pleuritic chest pain, Abdomen/GI: Negative for abdominal pain, nausea, vomiting, diarrhea, and constipation, Back: Negative for injury and pain, Neuro: Negative for headache, weakness, numbness, tingling, and seizure. 06:59 MS/extremity: Positive for pain, tenderness, of the lateral side of left foot. Exam: 06:58 Constitutional: This is a well developed, well nourished patient who is awake, alert, kb and in no acute distress. Head/Face: Normocephalic, atraumatic. Chest/axilla: Normal chest wall appearance and motion. Nontender with no deformity. No lesions are appreciated. Cardiovascular: Regular rate and rhythm with a normal S1 and S2. No gallops, murmurs, or rubs. Normal PMI, no JVD. No pulse deficits. Respiratory: Lungs have equal breath sounds bilaterally, clear to auscultation and percussion. No rales, rhonchi or wheezes noted. No increased work of breathing, no retractions or nasal flaring. Abdomen/GI: Soft, non-tender, with normal bowel sounds. No distension or tympany. No guarding or rebound. No evidence of tenderness throughout. Skin: Warm, dry with normal turgor. Normal color with no rashes, no lesions, and no evidence of cellulitis. MS/ Extremity: Pulses equal, no cyanosis. Neurovascular intact. Full, normal range of motion. Neuro: Awake and alert, GCS 15, oriented to person, place, time, and situation. Cranial nerves II-XII grossly intact. Motor strength 5/5 in all extremities. Sensory grossly intact. Cerebellar exam normal. Normal gait. 06:58 Skin: area to lateral aspect of left foot that is causing pt pain is normal in color, appears to be a callous formation. Vital Signs: 06:45 BP 126 / 71; Pulse 71; Resp 16; Temp 97.8(O); Pulse Ox 100% on R/A; Weight 111.13 kg jb4 (R); Height 5 ft. 3 in. (160.02 cm) (R); Pain 2/10; 06:45 Body Mass Index 43.40 (111.13 kg, 160.02 cm) jb4 MDM: 06:47 Patient medically screened. kb 06:58 Data reviewed: vital signs, nurses notes. Data interpreted: Pulse oximetry: on room air kb is 100 %. Interpretation: normal. 07:44 Counseling: I had a detailed discussion with the patient and/or guardian regarding: the kb historical points, exam findings, and any diagnostic results supporting the discharge/admit diagnosis, radiology results, the need for outpatient follow up, a family practitioner, to return to the emergency department if symptoms worsen or persist or if there are any questions or concerns that arise at home. 07:49 ED course: No open skin, discoloration and unable to palpate FB seen on x-ray. Pt kb educated to follow up podiatry or general surgery. 09/27 06:51 Order name: Foot Left 3 View XRAY; Complete Time: 07:43 kb Administered Medications: No medications were administered Disposition: 19:50 Co-signature as Attending Physician, Rula Acosta MD. ma2 Disposition: 09/28/19 07:47 Discharged to Home. Impression: Pain in left foot - possible foreign bodies. - Condition is Stable. - Discharge Instructions: Foreign Body, Foot Pain. - Prescriptions for Keflex 500 mg Oral Capsule - take 1 capsule by ORAL route every 8 hours for 7 days; 21 capsule. - Medication Reconciliation Form, Thank You Letter, Antibiotic Education, Prescription Opioid Use form. - Follow up: Emergency Department; When: As needed; Reason: Worsening of condition. Follow up: Private Physician; When: 2 - 3 days; Reason: Recheck today's complaints, Continuance of care, Re-evaluation by your physician. Signatures: Dispatcher [employer] Eliane Watson, KRISTI-C UNIFORM CAP OPERATOR-Porfirio Priest, RN RN Jose Mullins RN RN em Rula Acosta MD MD ma2 Corrections: (The following items were deleted from the chart) 07:57 07:47 09/28/2019 07:47 Discharged to Home. Impression: Pain in left foot - possible em foreign bodies. Condition is Stable. Forms are Medication Reconciliation Form, Thank You Letter, Antibiotic Education, Prescription Opioid Use. Follow up: Emergency Department; When: As needed; Reason: Worsening of condition. Follow up: Private Physician; When: 2 - 3 days; Reason: Recheck today's complaints, Continuance of care, Re-evaluation by your physician. kb
[2019-09-28 08:03] VITALS: BP 126/71; TEMP 97.8; O2SAT 100
== END 2019-09-28 07:57 | disposition home or self-care (01) ==
LOC: ER 06:40
DX: M79.672 Pain in left foot (principal); I10 Essential (primary) hypertension; E11.9 Type 2 diabetes mellitus without complications; E03.9 Hypothyroidism, unspecified; I50.9 Heart failure, unspecified; Z79.82 Long term (current) use of aspirin; Z88.5 Allergy status to narcotic agent; Z95.818 Presence of other cardiac implants and grafts

== ENCOUNTER 2022-08-20 19:25 | Emergency (ER) | payer OTHER ==
--- OUTSIDE RECORDS SUMMARY | 2022-08-20 19:33 | XMS REPORT | Continuity of Care Document ---
:1960 Author Organization [facility] t Address [address] [place] [address] [place] [id number] Care Team Providers Name Role Phone Carlos Tomasa Skinner Primary Care Physician Cecille Alvarado Attending Clinician Unavailable REYNALDO GONZALES Attending Clinician Unavailable RUFINO STEIN Attending Clinician Unavailable RENA RODRIGUEZ Attending Clinician Unavailable MELLY ALEXANDRE Attending Clinician Unavailable Rena Rodriguez MD Attending Clinician Doctor Unassigned, [place] Attending Clinician Unavailable Lucas MENDEZ PhD, Arline Adams Attending Clinician [phone] Melly Alexandre MD Attending Clinician RADIOLOGY Attending Clinician Unavailable Radiology Attending Clinician Unavailable Clarissa Werner MD Attending Clinician [phone] Josette Matthews Attending Clinician 2, [facility] Attending Clinician Unavailable JOSETTE WASHINGTON Attending Clinician Unavailable Rufino Stein MD Attending Clinician MARTY WANG Attending Clinician Unavailable MARTY WANG Attending Clinician Unavailable Marty Wang MD Attending Clinician ISSA HAN Attending Clinician Unavailable ISSA HAN Attending Clinician Unavailable Issa Han DO Attending Clinician Niyah Campos Attending Clinician Unavailable Pob, [facility] Main Attending Clinician Unavailable Alice Rowe MD Attending Clinician HARPER Attending Clinician Unavailable Andrew Vasquez Attending Clinician Reynaldo Gonzales MD Attending Clinician Only, Adc Test Attending Clinician Unavailable ANDREW ANDRADE Attending Clinician Unavailable ATAJOVANNA CANTU Attending Clinician Unavailable JOVANNA FERRIS Attending Clinician Unavailable ALICE ROWE Attending Clinician Unavailable KIKA GREEN Attending Clinician Unavailable REYNALDO GONZALES Admitting Clinician Unavailable RENA RODRIGUEZ Admitting Clinician Unavailable Rena Rodriguez MD Admitting Clinician MELLY ALEXANDRE Admitting Clinician Unavailable TOMASA VILLARREAL Admitting Clinician Unavailable RUFINO STEIN Admitting Clinician Unavailable MARTY WANG Admitting Clinician Unavailable TOMASA BA Admitting Clinician Unavailable HARPER Admitting Clinician Unavailable Reynaldo Gonzales MD Admitting Clinician KIKA GREEN Admitting Clinician Unavailable Payers Payer Name Policy Type Policy Number Effective Date Expiration Date [facility] [id number] 2018 [facility] MEDICAID 00:00:00 Problems Condition Condition Condition Status Onset Resolution Last Treating Co mments Source Name Details Category Date Date Treatment Clinician Date Obesity Obesity Disease Active Univers (BMI (BMI 3-13 ity of 30-39.9) 30-39.9) 00:00: [place] [facility] 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 Added automatic ally from request for surgery [id number] Primary Primary Disease Active Univers hypertensi hypertensi 6-13 it y of on on 00:00: [place] [facility] Chronic Chronic Disease Active Univers heart heart 6-13 ity of failure failure 00:00: [place] with with 00 Medical preserved preserved Bran ch ejection ejection fraction fraction Bilateral Bilateral Disease Active Uni vers carotid carotid 6-13 ity of artery artery 00:00: [place] stenosis stenosis 00 Medica l Branch LIOR LIOR Disease Active Univers (obstructi (obstructi 6-13 it y of ve sleep ve sleep 00:00: [place] apnea) apnea) 00 Medical Branch Morbid Morbid Disease Active [facility] BMI with BMI 00:00: Medica l of of 00 Center 45.0-49.9, 45.0-49.9, adult adult Morbid Morbid Disease Active Univers obesity obesity 9-16 ity of with body with body 00:[place] mass index mass index 00 Me dical of of Branch 40.0-49.9 40.0-49.9 Carpal Carpal Disease Active Overview: Univer s tunnel tunnel 4-22 Formatt[place] ity of syndrome syndrome 00:00: g of this [place] as of right of right 00 note Medica l wrist wrist might be Branch different from the original. Added automatic ally from request for surgery [id number] Uncontroll Problem Co mmon ed type 2 Spirit diabetes - [facility] mellitus with [facility] hyperglyce Medica [facility] [id number] Depression Problem Com mon with Spirit anxiety - [facility] [id number] Left hand Problem Co mmon 10309 pain Spirit - [facility] History of History of Problem C ommon clinical leader carotid Spiri t y system atheroscle - CH I disease rosis [facility] [id number] Right arm Problem Com mon pain Spirit - [facility] [id number] Diabetic Problem Comm on peripheral Spirit neuropathy - [facility] [id number] Hypertensi Problem Com mon on, Spirit unspecifie - [facility]I d type [facility] [id number] Diarrhea, Problem Comm on unspecifie Spirit d type - [facility] [id number] History of Problem C ommon 55672 sleeve Spirit gastrectom - CHI y [facility] [id number] Non-season Problem Com mon al Spirit allergic - CHI rhinitis St due to [facility] pollen [facility] [id number] Chronic Problem Commo n systolic Spirit heart - [facility] failure [facility] [id number] RIANA Problem Common (generaliz Spirit ed anxiety - CHI disorder) [facility] [id number] Right arm Problem Com mon numbness Spirit - [facility] [id number] Hyperlipid Problem Com mon emia, Spirit unspecifie - CHI d hyperlipid [facility] emia [facility] [id number] Mixed Problem Common hyperlipid Spirit emia - CH[facility] [id number] Subcutaneo Problem C ommon [id number] us mass Spirit - [facility] [id number] Hypothyroi Problem Com mon dism, Spirit unspecifie - [facility]I d type [facility] [id number] Hypothyroi Problem Co mmon dism Spirit (acquired) - [facility] [id number] Gastroesop Problem Co mmon hageal Spirit reflux - [facility] disease [facility] esophagiti Medica l [place] [id number] 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 [id number] Abnormal Problem Comm on mammogram [facility] Allergies, Adverse Reactions, Alerts Allergy Allergy Status Severity Reaction(s) Onset Inactive Treating Comm ents Source Name Type Date Date Clinician Codeine Propensi Active Anaphylaxis 2018-[address] ty to 02-17 [facility] adverse 00:00: Medical reaction 00 Center s CODEINE Allergy Active High Anaphylaxis [facility] -[facility] 00:00: Medical 00 Center CODEINE DRUG Active Swelling 20180 Univers INGREDI 7 ity of 00:00: [address] Family History Family Member Diagnosis Comments Start Date Stop Date Source Natural brother Diabetes [facility] Natural father Heart disease [facility] Natural father Hypertension [facility] Natural father Liver disease [facility] Natural mother Diabetes [facility] Paternal grandfather Diabetes [facility] Social History Social Habit Start Date Stop Date Quantity Comments Source History of tobacco Cigarette Smoker [facility] Branch History SDOH [facility] Alcohol Std Drinks Medica l Center History SDOH [facility] Alcohol Binge Medical Raiza ter History SDOH [facility] Alcohol Comment Medical C enter Exposure to 2022-08-04 2022-08-14 Not sure University SARS-CoV-2 (event) 00:00:00 16:34:00 [facility] Alcohol intake 2019-11-23 2019-11-[address] [facility] 00:00:00 00:00:00 non-drinker of Medical Ce nter alcohol (finding) Tobacco use and 2019-07-05 2019-07-[address] [facility] exposure 00:00:00 00:00:00 [facility] Cigarettes smoked 2019-07-05 2019-07-[address] [facility] current (pack per 00:00:00 00:00:00 Medical Center day) - Reported Cigarette 2019-07-05 2019-07-[address] [facility] pack-years 00:00:00 00:00:00 Medical Center History SDFL 2019-02-17 2019-02-[address] [facility] Alcohol Frequency 00:00:00 00:00:00 [facility] Sex Assigned At [address] [facility] 00:00:00 00:00:00 [facility] Smoking Status Start Date Stop Date Source Ex-smoker 2022-06-10 00:00:00 2022-06-10 00:00:00 [facility] Medications Ordered Filled Start Stop Current Ordering Indication Dosage Frequency Signature Comments Components Source Medication Medication Date Date Medication? Clinician (SIG) Name Name acetaminoph Yes 650mg 650 mg, [place] en 3-14 Oral, PRN, ity of (TYLENOL) 15:23: 1 dose, [place] tablet 650 48 Starting Medic al mg on [facility] 08/20/22 at 1023, Until Discontinu ed, Routine, Pain (scale 1-3), DSU Recovery bupivacaine Yes PRN, Univer s (preserv 3-14 Starting ity of free) 0.5% 13:24: on [facility] (SENSORCAIN 00 08/20/22 at Vt dical E MPF) 0.5 0824, Branch % (5 mg/mL) Intra-op 30 mL, lidocaine-e pinephrine (XYLOCAINE WITH EPINEPHRINE ) 1 %-1:100,000 30 mL, NaCl 0.9% (NS) 30 mL hydrogen 2022-0 Yes PRN, Univers peroxide 3 3-14 Starting ity o f % topical 13:00: on Fri [place] solution 08/20/22 at [facility] 0800, [place] Until Discontinu ed, Routine, Intra-op water for 2022-0 Yes PRN, Univers irrigation 3-14 Starting ity o f irrigation 13:00: on Fri [place] solution 08/20/22 at [facility] 0800, [place] Until Discontinu ed, Routine, Intra-op clopidogrel 2022-0 Yes 75mg Take 1 Univ ers 75 mg 3-14 tablet by ity of tablet 11:49: mouth in [place] [address] the Medical morning. Branch KCL 20 mEq 2022-0 Yes potassium Un amee tablet 3-14 chloride ity of 11:49: ER 20 mEq [place] [address] tablet,ext Medical ended Branch release(pa rt/cryst) insulin 2022-0 Yes 60U inject 60 Unive rs degludec 3-14 Units ity of 100 unit/mL 11:49: under the [place] [facility] the Branch morning. pantoprazol 2022-0 Yes 20mg Take 1 Univ ers e 20 mg EC 3-14 tablet by ity of tablet 11:49: mouth in [place] [address] the Medical morning Branch and 1 tablet in the evening. atorvastati 2022-0 Yes 20mg Take 1 Univ ers n 20 mg 3-14 tablet by ity of tablet 11:49: mouth at [place] [address] bedtime. Medical Branch QUEtiapine 2022-0 Yes 100mg Take 1 Univ ers 100 mg 3-14 tablet by ity of tablet 11:49: mouth in [place] [address] the Medical morning Branch and 1 tablet in the evening. Lamotrigine 2022-0 Yes 1{tbl} Take 1 Un amee 100 mg TbDL 3-14 tablet by ity of 11:49: mouth in [place] [address] the Medical morning. Branch citalopram 2022-0 Yes 20mg Take 1 Unive rs 20 mg 3-14 tablet by ity of tablet 11:49: mouth in [place] [address] the Medical morning. Branch busPIRone 2022-0 Yes 10mg Take 1 Univer s 10 mg 3-14 tablet by ity of tablet 11:49: mouth in [place] [address] the Medical morning Branch and 1 tablet in the evening. traZODone 2023-0 Yes 100mg Take 1 Unive rs 100 mg 08-20 tablet by ity of tablet 11:49: mouth at [place] 52 bedtime. Medical Branch cholecalcif 2022-0 Yes 1000U Take 1 Uni vers william, 3-14 tablet by ity of vitamin D3, 11:49: mouth in [place] 25 mcg 52 the Medical (1,000 morning. Branch unit) tablet fish 0 Yes 1g Take 1 Univers oil-omega-3 -14 capsule by it y of fatty acids 11:49: mouth in [place] 340-1,000 52 the Medical mg capsule morning. Branc h celecoxib 2022- No 200mg 200 mg, Uni vers (CELEBREX) 08-20 Oral, ity of capsule 200 11:45: 11:37 ONCE, 1 [place] mg 00 :00 dose, On Medical [facility] 08/20/22 at 0645, Routine acetaminoph 2022- No 1000mg 1,000 mg, Univers en 08-20 Oral, ity of (TYLENOL) 11:45: 11:37 ONCE, 1 [place] tablet 00 :00 dose, On Medical 1,000 mg [facility] 08/20/22 at 0645, Routine lactated 2022- No 1000mL at 42 [facility] rs ringers IV 08-20 mL/hr, ity of infusion 11:45: 11:52 1,000 mL, [place] as 1,000 mL 00 :00 IV Medical Infusion, [place] ONCE, 1 dose, On [facility] 08/20/22 at 0645, Routine, DSU Pre-op acetaminoph 2022- Yes [id number] 1000mg Take 2 Univers en (TYLENOL 08-20 tablets by i ty of EXTRA 00:00: 04:59 mouth [place] STRENGTH) 00 :00 every 8 Medical 500 mg (eight) Branch tablet hours for 14 days. celecoxib 0 2022- Yes [id number] 200mg Take 1 Univers (CELEBREX) 08-20 capsule by it y of 200 mg 00:00: 04:59 mouth in [place] capsule 00 :00 the Medical morning Branch and 1 capsule in the evening. Take with meals. Do all this for 14 days. meperidine 0 2022- Yes [id number] 50mg Take 1 Univ ers 50 mg 3-08-28 tablet by ity of tablet 00:00: 04:59 mouth [place] 00 :00 every 6 Medical (six) Branch hours as needed for Pain (scale 7-10) for up to 7 days. Indication s: acute pain barium 2022-0 202- No [id number] 355mL 355 mL, Un amee sulfate 07-31 Oral, ity of (LIQUID E-Z 14:39: 13:50 ONCE, 1 [place] PAQUE) 60 % 00 :00 dose, On Medi amrgarita (w/v) oral Wed Branch suspension 07/31/22 at 355 mL 0900, Routine FREESTYLE 0 Yes 1{strip 1 Strip as Univers LITE STRIPS 2-08 } needed. ity o f strip 00:00: [place] [facility] FREESTYLE 0 Yes 1{dose} 1 Dose as Univers LANCETS 28 2-08 needed. ity of gauge Misc 00:00: Medical Branch NOVOFINE 32 2022-0 Yes 1{syrin 1 Syringe Univers 32 gauge x 2-08 ge} as needed. ity of 1/4" Ndle 00:00: Medical Branch furosemide 2022-0 Yes 40mg Take 1 Unive rs 40 mg 2-01 tablet by ity of tablet 00:00: mouth [place] 00 every Medical morning Branch and evening. losartan 50 2022-0 Yes [id number] 50mg Take 1 Univers mg tablet 2-01 tablet by ity o f 00:00: mouth in [place] 00 the Medical morning. Branch furosemide 2022-0 Yes 40mg Take 1 Unive rs 40 mg 2-01 tablet by ity of tablet 00:00: mouth [place] 00 every Medical morning Branch and evening. losartan 50 2022-0 Yes [id number] 50mg Take 1 Univers mg tablet 2-01 tablet by ity o f 00:00: mouth in [place] 00 the Medical morning. Branch furosemide 2022-0 Yes 40mg Take 1 Unive rs 40 mg 2-01 tablet by ity of tablet 00:00: mouth [place] 00 every Medical morning Branch and evening. losartan 50 2022-0 Yes [id number] 50mg Take 1 Univers mg tablet 2-01 tablet by ity o f 00:00: mouth in [place] 00 the Medical morning. Branch furosemide 2023-0 Yes 40mg Take 1 Unive rs 40 mg 2-01 tablet by ity of tablet 00:00: mouth [place] 00 every Medical morning Branch and evening. losartan 50 2023-0 Yes [id number] 50mg Take 1 Univers mg tablet 2-01 tablet by ity o f 00:00: mouth in [place] 00 the Medical morning. Branch furosemide 2023-0 Yes 40mg Take 1 Unive rs 40 mg 2-01 tablet by ity of tablet 00:00: mouth [place] 00 every Medical morning Branch and evening. losartan 50 2023-0 Yes [id number] 50mg Take 1 Univers mg tablet 2-01 tablet by ity o f 00:00: mouth in [place] 00 the Medical morning. Branch furosemide 2023-0 Yes 40mg Take 1 Unive rs 40 mg 2-01 tablet by ity of tablet 00:00: mouth [place] 00 every Medical morning Branch and evening. losartan 50 2023-0 Yes [id number] 50mg Take 1 Univers mg tablet 2-01 tablet by ity o f 00:00: mouth in [place] 00 the Medical morning. Branch furosemide 2023-0 Yes 40mg Take 1 Unive rs 40 mg 2-01 tablet by ity of tablet 00:00: mouth [place] 00 every Medical morning Branch and evening. losartan 50 2023-0 Yes [id number] 50mg Take 1 Univers mg tablet 2-01 tablet by ity o f 00:00: mouth in [place] 00 the Medical morning. Branch furosemide 2023-0 Yes 40mg Take 1 Unive rs 40 mg 2-01 tablet by ity of tablet 00:00: mouth [place] 00 every Medical morning Branch and evening. losartan 50 2023-0 Yes [id number] 50mg Take 1 Univers mg tablet 2-01 tablet by ity o f 00:00: mouth in [place] 00 the Medical morning. Branch furosemide 2023-0 Yes 40mg Take 1 Unive rs 40 mg 2-01 tablet by ity of tablet 00:00: mouth [place] 00 every Medical morning Branch and evening. losartan 50 2023-0 Yes [id number] 50mg Take 1 Univers mg tablet 2-01 tablet by ity o f 00:00: mouth in [place] 00 the Medical morning. Branch furosemide 2023-0 Yes 40mg Take 1 Unive rs 40 mg 2-01 tablet by ity of tablet 00:00: mouth [place] 00 every Medical morning Branch and evening. losartan 50 2023-0 Yes [id number] 50mg Take 1 Univers mg tablet 2-01 tablet by ity o f 00:00: mouth in [place] 00 the Medical morning. Branch furosemide 2023-0 Yes 40mg Take 1 Unive rs 40 mg 2-01 tablet by ity of tablet 00:00: mouth [place] 00 every Medical morning Branch and evening. losartan 50 2023-0 Yes [id number] 50mg Take 1 Univers mg tablet 2-01 tablet by ity o f 00:00: mouth in [place] 00 the Medical morning. Branch furosemide 2023-0 Yes 40mg Take 1 Unive rs 40 mg 2-01 tablet by ity of tablet 00:00: mouth [place] 00 every Medical morning Branch and evening. losartan 50 2023-0 Yes [id number] 50mg Take 1 Univers mg tablet 2-01 tablet by ity o f 00:00: mouth in [place] 00 the Medical morning. Branch furosemide 2023-0 Yes 40mg Take 1 Unive rs 40 mg 2-01 tablet by ity of tablet 00:00: mouth [place] 00 every Medical morning Branch and evening. losartan 50 2023-0 Yes [id number] 50mg Take 1 Univers mg tablet 2-01 tablet by ity o f 00:00: mouth in [place] 00 the Medical morning. Branch furosemide 2023-0 Yes 40mg Take 1 Unive rs 40 mg 2-01 tablet by ity of tablet 00:00: mouth [place] 00 every Medical morning Branch and evening. losartan 50 2023-0 Yes [id number] 50mg Take 1 Univers mg tablet 2-01 tablet by ity o f 00:00: mouth in [place] 00 the Medical morning. Branch furosemide 2023-0 Yes 40mg Take 1 Unive rs 40 mg 2-01 tablet by ity of tablet 00:00: mouth [place] 00 every Medical morning Branch and evening. losartan 50 2023-0 Yes [id number] 50mg Take 1 Univers mg tablet 2-01 tablet by ity o f 00:00: mouth in [place] 00 the Medical morning. Branch furosemide 2023-0 Yes 40mg Take 1 Unive rs 40 mg 2-01 tablet by ity of tablet 00:00: mouth [place] 00 every Medical morning Branch and evening. losartan 50 2023-0 Yes [id number] 50mg Take 1 Univers mg tablet 2-01 tablet by ity o f 00:00: mouth in [place] [address] the Medical morning. Branch furosemide 3-0 Yes 40mg Take 1 Unive rs 40 mg 2-01 tablet by ity of tablet 00:00: mouth [place] [address] every Medical morning Branch and evening. losartan 50 2023-0 Yes [id number] 50mg Take 1 Univers mg tablet 2-01 tablet by ity o f 00:00: mouth in [place] [address] the Medical morning. Branch sucralfate 2023-0 Yes 1g Take 1 g Uni vers 1 gram 1-20 by mouth ity of tablet 00:00: in the [place] 00 morning. Medical Branch sucralfate 2023-0 Yes 1g Take 1 g Uni vers 1 gram 1-20 by mouth ity of tablet 00:00: in the [place] morning. Medical Branch sucralfate 2023-0 Yes 1g Take 1 g Uni vers 1 gram 1-20 by mouth ity of tablet 00:00: in the [place] morning. Medical Branch sucralfate 2023-0 Yes 1g Take 1 g Uni vers 1 gram 1-20 by mouth ity of tablet 00:00: in the [place] morning. Medical Branch sucralfate 2023-0 Yes 1g Take 1 g Uni vers 1 gram 1-20 by mouth ity of tablet 00:00: in the [place] morning. Medical Branch sucralfate 2023-0 Yes 1g Take 1 g Uni vers 1 gram 1-20 by mouth ity of tablet 00:00: in the [place] morning. Medical Branch sucralfate 2023-0 Yes 1g Take 1 g Uni vers 1 gram 1-20 by mouth ity of tablet 00:00: in the [place] morning. Medical Branch sucralfate 2023-0 Yes 1g Take 1 g Uni vers 1 gram 1-20 by mouth ity of tablet 00:00: in the [place] 00 morning. Medical Branch sucralfate 2023-0 Yes 1g Take 1 g Uni vers 1 gram 1-20 by mouth ity of tablet 00:00: in the [place] 00 morning. Medical Branch sucralfate 2023-0 Yes 1g Take 1 g Uni vers 1 gram 1-20 by mouth ity of tablet 00:00: in the [place] 00 morning. Medical Branch sucralfate 2023-0 Yes 1g Take 1 g Uni vers 1 gram 1-20 by mouth ity of tablet 00:00: in the [place] 00 morning. Medical Branch sucralfate 2023-0 Yes 1g Take 1 g Uni vers 1 gram 1-20 by mouth ity of tablet 00:00: in the [place] 00 morning. Medical Branch sucralfate 2023-0 Yes 1g Take 1 g Uni vers 1 gram 1-20 by mouth ity of tablet 00:00: in the [place] 00 morning. Medical Branch sucralfate 2023-0 Yes 1g Take 1 Unive rs 1 gram 1-20 tablet by ity of tablet 00:00: mouth in [place] the Medical morning. Branch sucralfate 2023-0 Yes 1g Take 1 Unive rs 1 gram 1-20 tablet by ity of tablet 00:00: mouth in [place] the Medical morning. Branch sucralfate 2023-0 Yes 1g Take 1 Unive rs 1 gram 1-20 tablet by ity of tablet 00:00: mouth in [place] the Medical morning. Branch sucralfate 2023-0 Yes 1g Take 1 Unive rs 1 gram 1-20 tablet by ity of tablet 00:00: mouth in [place] the Medical morning. Branch sucralfate 2023-0 Yes 1g Take 1 Unive rs 1 gram 1-20 tablet by ity of tablet 00:00: mouth in [place] the Medical morning. Branch bisoprolol 2023-0 2023- No 10mg Take 10 mg Univers 10 mg 06-10 by mouth ity of tablet 09:41: 00:00 daily. [place] 36 :00 Medical Branch bisoprolol 2023-0 2023- No 10mg Take 10 mg Univers 10 mg 06-10 by mouth ity of tablet 09:41: 00:00 daily. [place] 36 :00 Medical Branch bisoprolol 2023-0 Yes [id number] 5mg Take 1 Univers 5 mg tablet 06-10 02 tablet by ity of 00:00: mouth in [place] the Medical morning. Branch bisoprolol 2023-0 Yes [id number] 5mg Take 1 Univers 5 mg tablet 06-10 02 tablet by ity of 00:00: mouth in [place] the Medical morning. Branch bisoprolol 2023-0 Yes [id number] 5mg Take 1 Univers 5 mg tablet 06-10 02 tablet by ity of 00:00: mouth in [place] the Medical morning. Branch bisoprolol 2023-0 Yes [id number] 5mg Take 1 Univers 5 mg tablet 1- 02 tablet by ity of 00:00: mouth in [place] 00 the Medical morning. Branch bisoprolol 2023-0 Yes [id number] 5mg Take 1 Univers 5 mg tablet 1- 02 tablet by ity of 00:00: mouth in [place] the Medical morning. Branch bisoprolol 2023-0 Yes [id number] 5mg Take 1 Univers 5 mg tablet 1- 02 tablet by ity of 00:00: mouth in [place] the Medical morning. Branch bisoprolol 2023-0 Yes [id number] 5mg Take 1 Univers 5 mg tablet 1- 02 tablet by ity of 00:00: mouth in [place] the Medical morning. Branch bisoprolol 3-0 Yes [id number] 5mg Take 1 Univers 5 mg tablet 1- 02 tablet by ity of 00:00: mouth in [place] the Medical morning. Branch bisoprolol 3-0 Yes [id number] 5mg Take 1 Univers 5 mg tablet 1- 02 tablet by ity of 00:00: mouth in [place] the Medical morning. Branch bisoprolol 3-0 Yes [id number] 5mg Take 1 Univers 5 mg tablet 1- 02 tablet by ity of 00:00: mouth in [place] the Medical morning. Branch bisoprolol 3-0 Yes [id number] 5mg Take 1 Univers 5 mg tablet 1- 02 tablet by ity of 00:00: mouth in [place] the Medical morning. Branch bisoprolol 2023-0 Yes [id number] 5mg Take 1 Univers 5 mg tablet 1- 02 tablet by ity of 00:00: mouth in [place] the Medical morning. Branch bisoprolol 2023-0 Yes [id number] 5mg Take 1 Univers 5 mg tablet 1-02 02 tablet by ity of 00:00: mouth in [place] the Medical morning. Branch bisoprolol 2023-0 Yes [id number] 5mg Take 1 Univers 5 mg tablet 1-02 02 tablet by ity of 00:00: mouth in [place] 00 the Medical morning. Branch bisoprolol 2023-0 Yes [id number] 5mg Take 1 Univers 5 mg tablet 1-02 02 tablet by ity of 00:00: mouth in [place] the morning. Branch bisoprolol 3-0 Yes [id number] 5mg Take 1 Univers 5 mg tablet 1- 02 tablet by ity of 00:00: mouth in [place] the morning. Branch bisoprolol 3-0 Yes [id number] 5mg Take 1 Univers 5 mg tablet 1- 02 tablet by ity of 00:00: mouth in [place] the morning. Branch bisoprolol 3-0 Yes [id number] 5mg Take 1 Univers 5 mg tablet 1- 02 tablet by ity of 00:00: mouth in [place] the morning. Branch bisoprolol 3-0 Yes [id number] 5mg Take 1 Univers 5 mg tablet 1- 02 tablet by ity of 00:00: mouth in [place] the morning. Branch bisoprolol 3-0 Yes [id number] 5mg Take 1 Univers 5 mg tablet 1- 02 tablet by ity of 00:00: mouth in [place] the morning. Branch bisoprolol 2022-0 Yes [id number] 5mg Take 1 [facility] 5 mg tablet 1- 02 tablet by ity of 00:00: mouth in [place] the morning. Branch sacubitriL- 2021-06 Yes [id number] .5{tbl} Take 0.5 [facility] valsartan 2-13 02 tablets by ity of 97-103 mg 00:00: [place] tablet the Medical morning Branch and 0.5 tablets in the evening. sacubitriL- 2021-06 Yes [id number] .5{tbl} Take 0.5 [facility] valsartan 2-13 02 tablets by ity of 97-103 mg 00:00: mouth [place] tablet 00 the Medical morning Branch and 0.5 tablets in the evening. sacubitriL- 2021- Yes [id number] .5{tbl} Take 0.5 [facility] valsartan 2-13 02 tablets by ity of 97-103 mg 00:00: mouth [place] tablet 00 the Medical morning Branch and 0.5 tablets in the evening. sacubitriL- 2021-06 Yes [id number] .5{tbl} Take 0.5 [facility] valsartan 2-13 02 tablets by ity of 97-103 mg 00:00: mouth [place] tablet 00 the Medical morning Branch and 0.5 tablets in the evening. sacubitriL- 2021-06 Yes [id number] .5{tbl} Take 0.5 [facility] valsartan 2-13 02 tablets by ity of 97-103 mg 00:00: mouth [place] tablet 00 the Medical morning Branch and 0.5 tablets in the evening. sacubitriL- 2021-06- No [id number] .5{tbl} Take 0.5 [facility] valsartan 2-13 - 02 tablets by ity of 97-103 mg 00:00: 00:00 mouth in [place] as tablet 00 :00 the Medical morning Branch and 0.5 tablets in the evening. sacubitriL- 2021-06- No [id number] .5{tbl} Take 0.5 [facility] valsartan 2-13 - 02 tablets by ity of 97-103 mg 00:00: 00:00 mouth in [place] as tablet 00 :00 the Medical morning Branch and 0.5 tablets in the evening. FUROSEMIDE 2-0 Yes [id number] TAKE ONE [facility] 80 mg 9-12 TABLET BY ity of tablet 00:00: MOUTH [place] 00 TWICE A Medical DAY Branch FUROSEMIDE 2022-0 Yes [id number] TAKE ONE [facility] 80 mg 9-12 TABLET BY ity of tablet 00:00: MOUTH [place] 00 TWICE A Medical DAY Branch FUROSEMIDE 2022-0 Yes [id number] TAKE ONE [facility] 80 mg 9-12 TABLET BY ity of tablet 00:00: MOUTH [place] 00 TWICE A Medical DAY Branch FUROSEMIDE 2022-0 Yes [id number] TAKE ONE [facility] 80 mg 9-12 TABLET BY ity of tablet 00:00: MOUTH [place] 00 TWICE A Medical DAY Branch FUROSEMIDE 2022-0 Yes [id number] TAKE ONE [facility] 80 mg 9-12 TABLET BY ity of tablet 00:00: MOUTH [place] 00 TWICE A Medical DAY Branch FUROSEMIDE 2022-0 Yes [id number] TAKE ONE [facility] 80 mg 9-12 TABLET BY ity of tablet 00:00: MOUTH [place] 00 TWICE A Medical DAY Branch FUROSEMIDE 2022-0 Yes [id number] TAKE ONE [facility] 80 mg 9-12 TABLET BY ity of tablet 00:00: MOUTH [place] 00 TWICE A Medical DAY Branch FUROSEMIDE 2022-0 Yes [id number] TAKE ONE [facility] 80 mg 9-12 TABLET BY ity of tablet 00:00: MOUTH 00 TWICE A Medical DAY Branch FUROSEMIDE 2022-0 Yes [id number] TAKE ONE [facility] 80 mg 9-12 TABLET BY ity of tablet 00:00: MOUTH 00 TWICE A Medical DAY Branch FUROSEMIDE 2022-0 Yes [id number] TAKE ONE [facility] 80 mg 9-12 TABLET BY ity of tablet 00:00: MOUTH 00 TWICE A Medical DAY Branch FUROSEMIDE 2022-0 Yes [id number] TAKE ONE [facility] 80 mg 9-12 TABLET BY ity of tablet 00:00: MOUTH 00 TWICE A Medical DAY Branch FUROSEMIDE 2022-0 Yes [id number] TAKE ONE [facility] 80 mg 9-12 TABLET BY ity of tablet 00:00: MOUTH 00 TWICE A Medical DAY Branch FUROSEMIDE 2022-0 Yes [id number] TAKE ONE [facility] 80 mg 9-12 TABLET BY ity of tablet 00:00: MOUTH 00 TWICE A Medical DAY Branch FUROSEMIDE 2022-0 Yes [id number] TAKE ONE [facility] 80 mg 9-12 TABLET BY ity of tablet 00:00: MOUTH 00 TWICE A Medical DAY Branch FUROSEMIDE 2022-0 Yes [id number] TAKE ONE [facility] 80 mg 9-12 TABLET BY ity of tablet 00:00: MOUTH 00 TWICE A Medical DAY Branch FUROSEMIDE 2022-0 Yes [id number] TAKE ONE [facility] 80 mg 9-12 TABLET BY ity of tablet 00:00: MOUTH 00 TWICE A Medical DAY Branch FUROSEMIDE 2022-0 2023- No [id number] TAKE ONE [facility] 80 mg 9-12 02-01 TABLET BY ity of tablet 00:00: 00:00 MOUTH [place] 00 :00 TWICE A Medical DAY Branch FUROSEMIDE 2022-0 2023- No [id number] TAKE ONE [facility] 80 mg 9-12 02-01 TABLET BY ity of tablet 00:00: 00:00 MOUTH [place] 00 :00 TWICE A Medical DAY Branch INGREZZA 40 2022-0 Yes Univer s mg Cap 8-08 ity of 00:00: [place] 00 Medical Branch INGREZZA 40 2022-0 Yes Univer s mg Cap 8-08 ity of 00:00: [place] 00 Medical Branch INGREZZA 40 2022-0 Yes Univer s mg Cap 8-08 ity of 00:00: [place] 00 Medical Branch INGREZZA 40 2022-0 Yes Univer s mg Cap 8-08 ity of 00:00: [place] 00 Medical Branch INGREZZA 40 2-0 Yes Univer s mg Cap 8-08 ity of 00:00: [place] 00 Medical Branch INGREZZA 40 2022-0 Yes Univer s mg Cap 8-08 ity of 00:00: [place] 00 Medical Branch INGREZZA 40 2022-0 Yes Univer s mg Cap 8-08 ity of 00:00: [place] 00 Medical Branch INGREZZA 40 2022-0 Yes Univer s mg Cap 8-08 ity of 00:00: [place] 00 Medical Branch INGREZZA 40 2-0 Yes Univer s mg Cap 8-08 ity of 00:00: [place] 00 Medical Branch INGREZZA 40 2-0 Yes Univer s mg Cap 8-08 ity of 00:00: [place] 00 Medical Branch INGREZZA 40 2-0 Yes Univer s mg Cap 8-08 ity of 00:00: [place] 00 Medical Branch INGREZZA 40 2-0 Yes Univer s mg Cap 8-08 ity of 00:00: [place] 00 Medical Branch INGREZZA 40 2-0 Yes Univer s mg Cap 8-08 ity of 00:00: [place] 00 Medical Branch INGREZZA 40 2-0 Yes Univer s mg Cap 8-08 ity of 00:00: [place] 00 Medical Branch INGREZZA 40 2022-0 Yes Univer s mg Cap 8-08 ity of 00:00: [place] 00 Medical Branch INGREZZA 40 2022-0 Yes Univer s mg Cap 8-08 ity of 00:00: [place] 00 Medical Branch INGREZZA 40 2022-0 Yes Univer s mg Cap 8-08 ity of 00:00: [place] 00 Medical Branch INGREZZA 40 2022-0 Yes Univer s mg Cap 8-08 ity of 00:00: [place] 00 Medical Branch INGREZZA 40 2022-0 Yes Univer s mg Cap 8-08 ity of 00:00: [place] 00 Medical Branch INGREZZA 40 2022-0 Yes Univer s mg Cap 8-08 ity of 00:00: [place] 00 Medical Branch INGREZZA 40 2-0 Yes Univer s mg Cap 8-08 ity of 00:00: [place] 00 Medical Branch INGREZZA 40 2-0 Yes Univer s mg Cap 8-08 ity of 00:00: [place] 00 Medical Branch INGREZZA 40 2-0 Yes Univer s mg Cap 8-08 ity of 00:00: [place] 00 Medical Branch INGREZZA 40 2-0 Yes Univer s mg Cap 8-08 ity of 00:00: [place] 00 Medical Branch INGREZZA 40 2-0 Yes Univer s mg Cap 8-08 ity of 00:00: [place] 00 Medical Branch INGREZZA 40 2-0 Yes Univer s mg Cap 8-08 ity of 00:00: [place] 00 Medical Branch INGREZZA 40 2-0 Yes Univer s mg Cap 8-08 ity of 00:00: [place] 00 Medical Branch INGREZZA 40 2-0 Yes Univer s mg Cap 8-08 ity of 00:00: [place] 00 Medical Branch INGREZZA 40 2-0 Yes Univer s mg Cap 8-08 ity of 00:00: [place] 00 Medical Branch INGREZZA 40 2-0 Yes Univer s mg Cap 8-08 ity of 00:00: [place] 00 Medical Branch INGREZZA 40 2-0 Yes Univer s mg Cap 8-08 ity of 00:00: [place] 00 Medical Branch INGREZZA 40 2-0 Yes Univer s mg Cap 8-08 ity of 00:00: [place] 00 Medical Branch INGREZZA 40 2-0 Yes Univer s mg Cap 8-08 ity of 00:00: [place] 00 Medical Branch INGREZZA 40 2-0 Yes Univer s mg Cap 8-08 ity of 00:00: [place] 00 Medical Branch INGREZZA 40 2-0 Yes Univer s mg Cap 8-08 ity of 00:00: [place] 00 Medical Branch INGREZZA 40 2-0 Yes 1{capsu Take 1 U nivers mg Cap 8-08 le} capsule by ity of 00:00: mouth in [place] 00 the Medical morning. Branch citalopram 0 Yes 20mg Take 20 mg U nivers 20 mg 6-13 by mouth ity of tablet 09:02: daily. [place] [address] Medical Branch traZODone 2021-0 Yes 100mg Take 100 [facility] vers 100 mg 6-13 mg by ity of tablet 09:02: mouth at [place] [address] bedtime. Medical Branch citalopram 2-0 Yes 20mg Take 20 mg U nivers 20 mg 6-13 by mouth ity of tablet 09:02: daily. [place] [address] Medical Branch traZODone 2-0 Yes 100mg Take 100 [facility] vers 100 mg 6-13 mg by ity of tablet 09:02: mouth at [place] [address] bedtime. Medical Branch citalopram 2-0 Yes 20mg Take 20 mg U nivers 20 mg 6-13 by mouth ity of tablet 09:02: daily. [place] [address] Medical Branch traZODone 2-0 Yes 100mg Take 100 [facility] vers 100 mg 6-13 mg by ity of tablet 09:02: mouth at [place] [address] bedtime. Medical Branch citalopram 2-0 Yes 20mg Take 20 mg U nivers 20 mg 6-13 by mouth ity of tablet 09:02: daily. [place] [address] Medical Branch traZODone 2-0 Yes 100mg Take 100 [facility] vers 100 mg 6-13 mg by ity of tablet 09:02: mouth at [place] [address] bedtime. Medical Branch citalopram 2-0 Yes 20mg Take 20 mg U nivers 20 mg 6-13 by mouth ity of tablet 09:02: daily. [place] [address] Medical Branch traZODone 2-0 Yes 100mg Take 100 [facility] vers 100 mg 6-13 mg by ity of tablet 09:02: mouth at [place] [address] bedtime. Medical Branch citalopram 2-0 Yes 20mg Take 20 mg U nivers 20 mg 6-13 by mouth ity of tablet 09:02: daily. [place] [address] Medical Branch traZODone 2-0 Yes 100mg Take 100 [facility] vers 100 mg 6-13 mg by ity of tablet 09:02: mouth at [place] [address] bedtime. Medical Branch citalopram 2-0 Yes 20mg Take 20 mg U nivers 20 mg 6-13 by mouth ity of tablet 09:02: daily. [place] [address] Medical Branch traZODone 2022-0 Yes 100mg Take 100 [facility] vers 100 mg 6-13 mg by ity of tablet 09:02: mouth at [place] [address] bedtime. Medical Branch citalopram 2-0 Yes 20mg Take 20 mg U nivers 20 mg 6-13 by mouth ity of tablet 09:02: daily. [place] [address] Medical Branch traZODone 2022-0 Yes 100mg Take 100 [facility] vers 100 mg 6-13 mg by ity of tablet 09:02: mouth at [place] [address] bedtime. Medical Branch citalopram 2022-0 Yes 20mg Take 20 mg U nivers 20 mg 6-13 by mouth ity of tablet 09:02: daily. [place] [address] Medical Branch traZODone 2-0 Yes 100mg Take 100 [facility] vers 100 mg 6-13 mg by ity of tablet 09:02: mouth at [place] [address] bedtime. Medical Branch citalopram 2-0 Yes 20mg Take 20 mg U nivers 20 mg 6-13 by mouth ity of tablet 09:02: daily. [place] [address] Medical Branch traZODone 2-0 Yes 100mg Take 100 [facility] vers 100 mg 6-13 mg by ity of tablet 09:02: mouth at [place] [address] bedtime. Medical Branch citalopram 2-0 Yes 20mg Take 20 mg U nivers 20 mg 6-13 by mouth ity of tablet 09:02: daily. [place] [address] Medical Branch traZODone 2-0 Yes 100mg Take 100 [facility] vers 100 mg 6-13 mg by ity of tablet 09:02: mouth at [place] [address] bedtime. Medical Branch citalopram 2-0 Yes 20mg Take 20 mg U nivers 20 mg 6-13 by mouth ity of tablet 09:02: daily. [place] [address] Medical Branch traZODone 2022-0 Yes 100mg Take 100 [facility] vers 100 mg 6-13 mg by ity of tablet 09:02: mouth at [place] [address] bedtime. Medical Branch citalopram 2022-0 Yes 20mg Take 20 mg U nivers 20 mg 6-13 by mouth ity of tablet 09:02: daily. [place] [address] Medical Branch traZODone 2022-0 Yes 100mg Take 100 [facility] vers 100 mg 6-13 mg by ity of tablet 09:02: mouth at [place] [address] bedtime. Medical Branch citalopram 2022-0 Yes 20mg Take 20 mg U nivers 20 mg 6-13 by mouth ity of tablet 09:02: daily. [place] [address] Medical Branch traZODone 2022-0 Yes 100mg Take 100 [facility] vers 100 mg 6-13 mg by ity of tablet 09:02: mouth at [place] [address] bedtime. Medical Branch citalopram 2-0 Yes 20mg Take 20 mg U nivers 20 mg 6-13 by mouth ity of tablet 09:02: daily. [place] [address] Medical Branch traZODone 2022-0 Yes 100mg Take 100 [facility] vers 100 mg 6-13 mg by ity of tablet 09:02: mouth at [place] [address] bedtime. Medical Branch citalopram 2-0 Yes 20mg Take 20 mg U nivers 20 mg 6-13 by mouth ity of tablet 09:02: daily. [place] [address] Medical Branch traZODone 2-0 Yes 100mg Take 100 [facility] vers 100 mg 6-13 mg by ity of tablet 09:02: mouth at [place] [address] bedtime. Medical Branch citalopram 2-0 Yes 20mg Take 20 mg U nivers 20 mg 6-13 by mouth ity of tablet 09:02: daily. [place] [address] Medical Branch traZODone 2-0 Yes 100mg Take 100 [facility] vers 100 mg 6-13 mg by ity of tablet 09:02: mouth at [place] [address] bedtime. Medical Branch citalopram 2-0 Yes 20mg Take 20 mg U nivers 20 mg 6-13 by mouth ity of tablet 09:02: daily. [place] [address] Medical Branch traZODone 2-0 Yes 100mg Take 100 [facility] vers 100 mg 6-13 mg by ity of tablet 09:02: mouth at [place] [address] bedtime. Medical Branch citalopram 2-0 Yes 20mg Take 20 mg U nivers 20 mg 6-13 by mouth ity of tablet 09:02: daily. [place] [address] Medical Branch traZODone 2022-0 Yes 100mg Take 100 [facility] vers 100 mg 6-13 mg by ity of tablet 09:02: mouth at [place] [address] bedtime. Medical Branch citalopram 2-0 Yes 20mg Take 20 mg U nivers 20 mg 6-13 by mouth ity of tablet 09:02: daily. [place] [address] Medical Branch traZODone 2022-0 Yes 100mg Take 100 [facility] vers 100 mg 6-13 mg by ity of tablet 09:02: mouth at [place] [address] bedtime. Medical Branch citalopram 2022-0 Yes 20mg Take 20 mg U nivers 20 mg 6-13 by mouth ity of tablet 09:02: daily. [place] [address] Medical Branch traZODone 2-0 Yes 100mg Take 100 [facility] vers 100 mg 6-13 mg by ity of tablet 09:02: mouth at [place] [address] bedtime. Medical Branch citalopram 2-0 Yes 20mg Take 20 mg U nivers 20 mg 6-13 by mouth ity of tablet 09:02: daily. [place] [address] Medical Branch traZODone 2-0 Yes 100mg Take 100 [facility] vers 100 mg 6-13 mg by ity of tablet 09:02: mouth at [place] [address] bedtime. Medical Branch citalopram 2-0 Yes 20mg Take 20 mg U nivers 20 mg 6-13 by mouth ity of tablet 09:02: daily. [place] [address] Medical Branch traZODone 2-0 Yes 100mg Take 100 [facility] vers 100 mg 6-13 mg by ity of tablet 09:02: mouth at [place] [address] bedtime. Medical Branch citalopram 2-0 Yes 20mg Take 20 mg U nivers 20 mg 6-13 by mouth ity of tablet 09:02: daily. [place] [address] Medical Branch traZODone 2-0 Yes 100mg Take 100 [facility] vers 100 mg 6-13 mg by ity of tablet 09:02: mouth at [place] [address] bedtime. Medical Branch citalopram 2-0 Yes 20mg Take 20 mg U nivers 20 mg 6-13 by mouth ity of tablet 09:02: daily. [place] [address] Medical Branch traZODone 2-0 Yes 100mg Take 100 [facility] vers 100 mg 6-13 mg by ity of tablet 09:02: mouth at [place] [address] bedtime. Medical Branch citalopram 2-0 Yes 20mg Take 20 mg U nivers 20 mg 6-13 by mouth ity of tablet 09:02: daily. [place] [address] Medical Branch traZODone 2-0 Yes 100mg Take 100 [facility] vers 100 mg 6-13 mg by ity of tablet 09:02: mouth at [place] [address] bedtime. Medical Branch citalopram 2022-0 Yes 20mg Take 20 mg U nivers 20 mg 6-13 by mouth ity of tablet 09:02: daily. [place] [address] Medical Branch traZODone 2022-0 Yes 100mg Take 100 [facility] vers 100 mg 6-13 mg by ity of tablet 09:02: mouth at [place] [address] bedtime. Medical Branch citalopram 2-0 Yes 20mg Take 20 mg U nivers 20 mg 6-13 by mouth ity of tablet 09:02: daily. [place] [address] Medical Branch traZODone 2022-0 Yes 100mg Take 100 [facility] vers 100 mg 6-13 mg by ity of tablet 09:02: mouth at [place] [address] bedtime. Medical Branch citalopram 2-0 Yes 20mg Take 20 mg U nivers 20 mg 6-13 by mouth ity of tablet 09:02: daily. [place] [address] Medical Branch traZODone 2-0 Yes 100mg Take 100 [facility] vers 100 mg 6-13 mg by ity of tablet 09:02: mouth at [place] [address] bedtime. Medical Branch citalopram 2-0 Yes 20mg Take 20 mg U nivers 20 mg 6-13 by mouth ity of tablet 09:02: daily. [place] [address] Medical Branch traZODone 2-0 Yes 100mg Take 100 [facility] vers 100 mg 6-13 mg by ity of tablet 09:02: mouth at [place] [address] bedtime. Medical Branch citalopram 2-0 Yes 20mg Take 20 mg U nivers 20 mg 6-13 by mouth ity of tablet 09:02: daily. [place] [address] Medical Branch traZODone 2-0 Yes 100mg Take 100 [facility] vers 100 mg 6-13 mg by ity of tablet 09:02: mouth at [place] [address] bedtime. Medical Branch citalopram 2-0 Yes 20mg Take 20 mg U nivers 20 mg 6-13 by mouth ity of tablet 09:02: daily. [place] [address] Medical Branch traZODone 2022-0 Yes 100mg Take 100 [facility] vers 100 mg 6-13 mg by ity of tablet 09:02: mouth at [place] [address] bedtime. Medical Branch citalopram 2-0 Yes 20mg Take 20 mg U nivers 20 mg 6-13 by mouth ity of tablet 09:02: daily. [place] [address] Medical Branch traZODone 2022-0 Yes 100mg Take 100 [facility] vers 100 mg 6-13 mg by ity of tablet 09:02: mouth at [place] [address] bedtime. Medical Branch citalopram 2022-0 Yes 20mg Take 20 mg U nivers 20 mg 6-13 by mouth ity of tablet 09:02: daily. [place] [address] Medical Branch traZODone 2021-0 Yes 100mg Take 100 [facility] vers 100 mg 6-13 mg by ity of tablet 09:02: mouth at [place] [address] bedtime. Medical Branch citalopram 0 Yes 20mg Take 20 mg U nivers 20 mg 6-13 by mouth ity of tablet 09:02: daily. [place] [address] Medical Branch traZODone 0 Yes 100mg Take 100 [facility] vers 100 mg 6-13 mg by ity of tablet 09:02: mouth at [place] [address] bedtime. Medical Branch Levemir 100 Levemir 100 2021-0 No QD [place] UNIT/ML UNIT/ML 5-18 100 00:00: UNIT/ML 00 [place] 100 [place] 100 2021-0 No QD [place] UNIT/ML UNIT/ML 5-18 100 00:00: UNIT/ML 00 [place] 100 [place] 100 2021-0 No QD [place] UNIT/ML UNIT/ML 5-18 100 00:00: UNIT/ML 00 [place] 100 [place] 100 2021-0 No QD [place] UNIT/ML UNIT/ML 5-18 100 00:00: UNIT/ML 00 Levothyroxi Levothyroxi 2021-0 No QD Levothyrox ne Sodium ne Sodium 3-22 ine Sodium 125 MCG 125 MCG 00:00: 125 MCG 00 Levothyroxi Levothyroxi 2021-0 No QD Levothyrox ne Sodium ne Sodium 3-22 ine Sodium 125 MCG 125 MCG 00:00: 125 MCG 00 Lamotrigine Yes Take by [facility] vers 100 mg TbDL 3-10 mouth. ity of 08:52: [place] [address] Medical Branch busPIRone 2021-0 Yes 10mg Take 10 mg Un amee 10 mg 3-10 by mouth 2 ity of tablet 08:52: (two) [place] [address] times Medical daily. Branch atorvastati 0 Yes 20mg Take 20 mg [facility] n 20 mg 3-10 by mouth ity of tablet 08:52: at [place] [address] bedtime. Medical Branch QUEtiapine 0 Yes 100mg Take 100 Un am[place] 100 mg 3-10 mg by ity of tablet 08:52: mouth 2 [place] 58 (two) Medical times Branch daily. Lamotrigine 2022-0 Yes Take by [facility] vers 100 mg TbDL 3-10 mouth. ity of 08:52: [place] [address] Medical Branch busPIRone 2022-0 Yes 10mg Take 10 mg Un amee 10 mg 3-10 by mouth 2 ity of tablet 08:52: (two) [place] [address] times Medical daily. Branch atorvastati 2022-0 Yes 20mg Take 20 mg [facility] n 20 mg 3-10 by mouth ity of tablet 08:52: at [place] [address] bedtime. Medical Branch QUEtiapine 2022-0 Yes 100mg Take 100 [facility] [place] 100 mg 3-10 mg by ity of tablet 08:52: mouth 2 [place] [address] (two) Medical times Branch daily. Lamotrigine 2022-0 Yes Take by [facility] vers 100 mg TbDL 3-10 mouth. ity of 08:52: [place] [address] Medical Branch busPIRone 2022-0 Yes 10mg Take 10 mg Un amee 10 mg 3-10 by mouth 2 ity of tablet 08:52: (two) [place] [address] times Medical daily. Branch atorvastati 2022-0 Yes 20mg Take 20 mg [facility] n 20 mg 3-10 by mouth ity of tablet 08:52: at [place] [address] bedtime. Medical Branch QUEtiapine 2022-0 Yes 100mg Take 100 Un am[place] 100 mg 3-10 mg by ity of tablet 08:52: mouth 2 [place] [address] (two) Medical times Branch daily. Lamotrigine 2022-0 Yes Take by [facility] vers 100 mg TbDL 3-10 mouth. ity of 08:52: [place] [address] Medical Branch busPIRone 2022-0 Yes 10mg Take 10 mg Un amee 10 mg 3-10 by mouth 2 ity of tablet 08:52: (two) [place] [address] times Medical daily. Branch atorvastati 2022-0 Yes 20mg Take 20 mg [facility] n 20 mg 3-10 by mouth ity of tablet 08:52: at [place] [address] bedtime. Medical Branch QUEtiapine 2022-0 Yes 100mg Take 100 Un [place] 100 mg 3-10 mg by ity of tablet 08:52: mouth 2 [place] [address] (two) Medical times Branch daily. Lamotrigine 2022-0 Yes Take by [facility] vers 100 mg TbDL 3-10 mouth. ity of 08:52: [place] 58 Medical Branch busPIRone 2022-0 Yes 10mg Take 10 mg Un amee 10 mg 3-10 by mouth 2 ity of tablet 08:52: (two) [place] [address] times Medical daily. Branch atorvastati 2022-0 Yes 20mg Take 20 mg [facility] n 20 mg 3-10 by mouth ity of tablet 08:52: at [place] [address] bedtime. Medical Branch QUEtiapine 2022-0 Yes 100mg Take 100 Un [place] 100 mg 3-10 mg by ity of tablet 08:52: mouth 2 [place] [address] (two) Medical times Branch daily. Lamotrigine 2022-0 Yes Take by [facility] vers 100 mg TbDL 3-10 mouth. ity of 08:52: [place] [address] Medical Branch busPIRone 2022-0 Yes 10mg Take 10 mg Un am[place] 10 mg 3-10 by mouth 2 ity of tablet 08:52: (two) [place] [address] times Medical daily. Branch atorvastati 2022-0 Yes 20mg Take 20 mg [facility] n 20 mg 3-10 by mouth ity of tablet 08:52: at [place] [address] bedtime. Medical Branch QUEtiapine 2022-0 Yes 100mg Take 100 Un am[place] 100 mg 3-10 mg by ity of tablet 08:52: mouth 2 [place] [address] (two) Medical times Branch daily. Lamotrigine 2022-0 Yes Take by [facility] vers 100 mg TbDL 3-10 mouth. ity of 08:52: [place] [address] Medical Branch busPIRone 2022-0 Yes 10mg Take 10 mg Un amee 10 mg 3-10 by mouth 2 ity of tablet 08:52: (two) [place] [address] times Medical daily. Branch atorvastati 2022-0 Yes 20mg Take 20 mg [facility] n 20 mg 3-10 by mouth ity of tablet 08:52: at [place] [address] bedtime. Medical Branch QUEtiapine 2022-0 Yes 100mg Take 100 Un am[place] 100 mg 3-10 mg by ity of tablet 08:52: mouth 2 [place] [address] (two) Medical times Branch daily. Lamotrigine 2022-0 Yes Take by [facility] vers 100 mg TbDL 3-10 mouth. ity of 08:52: [place] [address] Medical Branch busPIRone 2022-0 Yes 10mg Take 10 mg Un amee 10 mg 3-10 by mouth 2 ity of tablet 08:52: (two) [place] [address] times Medical daily. Branch atorvastati 2022-0 Yes 20mg Take 20 mg [facility] n 20 mg 3-10 by mouth ity of tablet 08:52: at [place] [address] bedtime. Medical Branch QUEtiapine 2022-0 Yes 100mg Take 100 Un am[place] 100 mg 3-10 mg by ity of tablet 08:52: mouth 2 [place] [address] (two) Medical times Branch daily. Lamotrigine 2022-0 Yes Take by [facility] vers 100 mg TbDL 3-10 mouth. ity of 08:52: [place] [address] Medical Branch busPIRone 2022-0 Yes 10mg Take 10 mg Un amee 10 mg 3-10 by mouth 2 ity of tablet 08:52: (two) [place] [address] times Medical daily. Branch atorvastati 2022-0 Yes 20mg Take 20 mg [facility] n 20 mg 3-10 by mouth ity of tablet 08:52: at [place] [address] bedtime. Medical Branch QUEtiapine 2022-0 Yes 100mg Take 100 Un am[place] 100 mg 3-10 mg by ity of tablet 08:52: mouth 2 [place] [address] (two) Medical times Branch daily. Lamotrigine 2022-0 Yes Take by [facility] vers 100 mg TbDL 3-10 mouth. ity of 08:52: [place] [address] Medical Branch busPIRone 2022-0 Yes 10mg Take 10 mg Un amee 10 mg 3-10 by mouth 2 ity of tablet 08:52: (two) [place] [address] times Medical daily. Branch bisoprolol 2022-0 Yes 10mg Take 10 mg U nivers 10 mg 3-10 by mouth ity of tablet 08:52: daily. [place] [address] Medical Branch atorvastati 2022-0 Yes 20mg Take 20 mg [facility] n 20 mg 3-10 by mouth ity of tablet 08:52: at [place] [address] bedtime. Medical Branch QUEtiapine 2022-0 Yes 100mg Take 100 Un am[place] 100 mg 3-10 mg by ity of tablet 08:52: mouth 2 [place] [address] (two) Medical times Branch daily. Lamotrigine 2022-0 Yes Take by [facility] vers 100 mg TbDL 3-10 mouth. ity of 08:52: [place] [address] Medical Branch busPIRone 2022-0 Yes 10mg Take 10 mg Un amee 10 mg 3-10 by mouth 2 ity of tablet 08:52: (two) [place] [address] times Medical daily. Branch bisoprolol 2022-0 Yes 10mg Take 10 mg U nivers 10 mg 3-10 by mouth ity of tablet 08:52: daily. [place] [address] Medical Branch atorvastati 2022-0 Yes 20mg Take 20 mg [facility] n 20 mg 3-10 by mouth ity of tablet 08:52: at [place] [address] bedtime. Medical Branch QUEtiapine 2022-0 Yes 100mg Take 100 Un am[place] 100 mg 3-10 mg by ity of tablet 08:52: mouth 2 [place] [address] (two) Medical times Branch daily. Lamotrigine 2022-0 Yes Take by Uni vers 100 mg TbDL 3-10 mouth. ity of 08:52: [place] [address] Medical Branch busPIRone 2022-0 Yes 10mg Take 10 mg Un amee 10 mg 3-10 by mouth 2 ity of tablet 08:52: (two) [place] [address] times Medical daily. Branch bisoprolol 2022-0 Yes 10mg Take 10 mg U nivers 10 mg 3-10 by mouth ity of tablet 08:52: daily. [place] [address] Medical Branch atorvastati 2-0 Yes 20mg Take 20 mg [facility] n 20 mg 3-10 by mouth ity of tablet 08:52: at [place] [address] bedtime. Medical Branch QUEtiapine 2022-0 Yes 100mg Take 100 Un am[place] 100 mg 3-10 mg by ity of tablet 08:52: mouth 2 [place] [address] (two) Medical times Branch daily. Lamotrigine 2022-0 Yes Take by Uni vers 100 mg TbDL 3-10 mouth. ity of 08:52: [place] [address] Medical Branch busPIRone 2022-0 Yes 10mg Take 10 mg Un am[place] 10 mg 3-10 by mouth 2 ity of tablet 08:52: (two) [place] [address] times Medical daily. Branch bisoprolol 2022-0 Yes 10mg Take 10 mg U nivers 10 mg 3-10 by mouth ity of tablet 08:52: daily. [place] [address] Medical Branch atorvastati 2022-0 Yes 20mg Take 20 mg [facility] n 20 mg 3-10 by mouth ity of tablet 08:52: at [place] [address] bedtime. Medical Branch QUEtiapine 2022-0 Yes 100mg Take 100 [facility] 100 mg 3-10 mg by ity of tablet 08:52: mouth 2 [place] [address] (two) Medical times [place] daily. Lamotrigine 2022-0 Yes Take by [facility] vers 100 mg TbDL 3-10 mouth. ity of 08:52: [place] [address] Medical Branch busPIRone 2022-0 Yes 10mg Take 10 mg [facility] 10 mg 3-10 by mouth 2 ity of tablet 08:52: (two) [place] [address] times Medical daily. Branch bisoprolol 2022-0 Yes 10mg Take 10 mg U nivers 10 mg 3-10 by mouth ity of tablet 08:52: daily. [place] [address] Medical Branch atorvastati 2-0 Yes 20mg Take 20 mg [facility] n 20 mg 3-10 by mouth ity of tablet 08:52: at [place] [address] bedtime. Medical Branch QUEtiapine 2022-0 Yes 100mg Take 100 [facility] 100 mg 3-10 mg by ity of tablet 08:52: mouth 2 [place] [address] (two) Medical times [place] daily. Lamotrigine 2022-0 Yes Take by [facility] vers 100 mg TbDL 3-10 mouth. ity of 08:52: [place] [address] Medical Branch busPIRone 2022-0 Yes 10mg Take 10 mg [facility] 10 mg 3-10 by mouth 2 ity of tablet 08:52: (two) [place] [address] times Medical daily. Branch bisoprolol 2-0 Yes 10mg Take 10 mg U nivers 10 mg 3-10 by mouth ity of tablet 08:52: daily. [place] [address] Medical Branch atorvastati 2022-0 Yes 20mg Take 20 mg [facility] n 20 mg 3-10 by mouth ity of tablet 08:52: at [place] [address] bedtime. Medical Branch QUEtiapine 2022-0 Yes 100mg Take 100 [facility] 100 mg 3-10 mg by ity of tablet 08:52: mouth 2 [place] [address] (two) Medical times [place] daily. Lamotrigine 2022-0 Yes Take by [facility] vers 100 mg TbDL 3-10 mouth. ity of 08:52: [place] [address] Medical Branch busPIRone 2022-0 Yes 10mg Take 10 mg [facility] 10 mg 3-10 by mouth 2 ity of tablet 08:52: (two) [place] [address] times Medical daily. Branch bisoprolol 2022-0 Yes 10mg Take 10 mg U nivers 10 mg 3-10 by mouth ity of tablet 08:52: daily. [place] [address] Medical Branch atorvastati 2022-0 Yes 20mg Take 20 mg [facility] n 20 mg 3-10 by mouth ity of tablet 08:52: at [place] [address] bedtime. Medical Branch QUEtiapine 2022-0 Yes 100mg Take 100 [facility] 100 mg 3-10 mg by ity of tablet 08:52: mouth 2 [place] [address] (two) Medical times Branch daily. Lamotrigine 2022-0 Yes Take by [facility] vers 100 mg TbDL 3-10 mouth. ity of 08:52: [place] [address] Medical Branch busPIRone 2022-0 Yes 10mg Take 10 mg [facility] 10 mg 3-10 by mouth 2 ity of tablet 08:52: (two) [place] [address] times Medical daily. Branch bisoprolol 2022-0 Yes 10mg Take 10 mg U nivers 10 mg 3-10 by mouth ity of tablet 08:52: daily. [place] [address] Medical Branch atorvastati 2-0 Yes 20mg Take 20 mg [facility] n 20 mg 3-10 by mouth ity of tablet 08:52: at [place] [address] bedtime. Medical Branch QUEtiapine 2022-0 Yes 100mg Take 100 [facility] 100 mg 3-10 mg by ity of tablet 08:52: mouth 2 [place] [address] (two) Medical times [place] daily. Lamotrigine 2022-0 Yes Take by [facility] vers 100 mg TbDL 3-10 mouth. ity of 08:52: [place] [address] Medical Branch busPIRone 2022-0 Yes 10mg Take 10 mg [facility] 10 mg 3-10 by mouth 2 ity of tablet 08:52: (two) [place] [address] times Medical daily. Branch bisoprolol 2022-0 Yes 10mg Take 10 mg U nivers 10 mg 3-10 by mouth ity of tablet 08:52: daily. [place] [address] Medical Branch atorvastati 2022-0 Yes 20mg Take 20 mg [facility] n 20 mg 3-10 by mouth ity of tablet 08:52: at [place] [address] bedtime. Medical Branch QUEtiapine 2022-0 Yes 100mg Take 100 [facility] 100 mg 3-10 mg by ity of tablet 08:52: mouth 2 [place] [address] (two) Medical times Branch daily. Lamotrigine 2022-0 Yes Take by [facility] vers 100 mg TbDL 3-10 mouth. ity of 08:52: [place] [address] Medical Branch busPIRone 2022-0 Yes 10mg Take 10 mg [facility] 10 mg 3-10 by mouth 2 ity of tablet 08:52: (two) [place] [address] times Medical daily. Branch bisoprolol 2022-0 Yes 10mg Take 10 mg U nivers 10 mg 3-10 by mouth ity of tablet 08:52: daily. [place] [address] Medical Branch atorvastati 2022-0 Yes 20mg Take 20 mg [facility] n 20 mg 3-10 by mouth ity of tablet 08:52: at [place] [address] bedtime. Medical Branch QUEtiapine 2022-0 Yes 100mg Take 100 [facility] 100 mg 3-10 mg by ity of tablet 08:52: mouth 2 [place] [address] (two) Medical times [place] daily. Lamotrigine 2022-0 Yes Take by [facility] vers 100 mg TbDL 3-10 mouth. ity of 08:52: [place] [address] Medical Branch busPIRone 2022-0 Yes 10mg Take 10 mg [facility] 10 mg 3-10 by mouth 2 ity of tablet 08:52: (two) [place] [address] times Medical daily. Branch bisoprolol 2022-0 Yes 10mg Take 10 mg U nivers 10 mg 3-10 by mouth ity of tablet 08:52: daily. [place] [address] Medical Branch atorvastati 2022-0 Yes 20mg Take 20 mg [facility] n 20 mg 3-10 by mouth ity of tablet 08:52: at [place] [address] bedtime. Medical Branch QUEtiapine 2022-0 Yes 100mg Take 100 [facility] 100 mg 3-10 mg by ity of tablet 08:52: mouth 2 [place] [address] (two) Medical times [place] daily. Lamotrigine 2022-0 Yes Take by [facility] vers 100 mg TbDL 3-10 mouth. ity of 08:52: [place] [address] Medical Branch busPIRone 2022-0 Yes 10mg Take 10 mg [facility] 10 mg 3-10 by mouth 2 ity of tablet 08:52: (two) [place] [address] times Medical daily. Branch bisoprolol 2022-0 Yes 10mg Take 10 mg U nivers 10 mg 3-10 by mouth ity of tablet 08:52: daily. [place] [address] Medical Branch atorvastati 2022-0 Yes 20mg Take 20 mg [facility] n 20 mg 3-10 by mouth ity of tablet 08:52: at [place] [address] bedtime. Medical Branch QUEtiapine 2022-0 Yes 100mg Take 100 [facility] 100 mg 3-10 mg by ity of tablet 08:52: mouth 2 [place] [address] (two) Medical times Branch daily. Lamotrigine 2022-0 Yes Take by [facility] vers 100 mg TbDL 3-10 mouth. ity of 08:52: [place] [address] Medical Branch busPIRone 2022-0 Yes 10mg Take 10 mg [facility] 10 mg 3-10 by mouth 2 ity of tablet 08:52: (two) [place] [address] times Medical daily. Branch bisoprolol 2022-0 Yes 10mg Take 10 mg U nivers 10 mg 3-10 by mouth ity of tablet 08:52: daily. [place] [address] Medical Branch atorvastati 2022-0 Yes 20mg Take 20 mg [facility] n 20 mg 3-10 by mouth ity of tablet 08:52: at [place] [address] bedtime. Medical Branch QUEtiapine 2022-0 Yes 100mg Take 100 [facility] 100 mg 3-10 mg by ity of tablet 08:52: mouth 2 [place] [address] (two) Medical times [place] daily. Lamotrigine 2022-0 Yes Take by [facility] vers 100 mg TbDL 3-10 mouth. ity of 08:52: [place] [address] Medical Branch busPIRone 2022-0 Yes 10mg Take 10 mg [facility] 10 mg 3-10 by mouth 2 ity of tablet 08:52: (two) [place] [address] times Medical daily. Branch bisoprolol 2022-0 Yes 10mg Take 10 mg U nivers 10 mg 3-10 by mouth ity of tablet 08:52: daily. [place] [address] Medical Branch atorvastati 2022-0 Yes 20mg Take 20 mg [facility] n 20 mg 3-10 by mouth ity of tablet 08:52: at [place] [address] bedtime. Medical Branch QUEtiapine 2022-0 Yes 100mg Take 100 [facility] 100 mg 3-10 mg by ity of tablet 08:52: mouth 2 [place] [address] (two) Medical times Branch daily. Lamotrigine 2022-0 Yes Take by [facility] vers 100 mg TbDL 3-10 mouth. ity of 08:52: [place] [address] Medical Branch busPIRone 2022-0 Yes 10mg Take 10 mg [facility] 10 mg 3-10 by mouth 2 ity of tablet 08:52: (two) [place] [address] times Medical daily. Branch atorvastati 2022-0 Yes 20mg Take 20 mg [facility] n 20 mg 3-10 by mouth ity of tablet 08:52: at [place] [address] bedtime. Medical Branch QUEtiapine 2022-0 Yes 100mg Take 100 [facility] 100 mg 3-10 mg by ity of tablet 08:52: mouth 2 [place] [address] (two) Medical times Branch daily. Lamotrigine 2022-0 Yes Take by [facility] vers 100 mg TbDL 3-10 mouth. ity of 08:52: [place] [address] Medical Branch busPIRone 2022-0 Yes 10mg Take 10 mg [facility] 10 mg 3-10 by mouth 2 ity of tablet 08:52: (two) [place] [address] times Medical daily. Branch atorvastati 2022-0 Yes 20mg Take 20 mg [facility] n 20 mg 3-10 by mouth ity of tablet 08:52: at [place] [address] bedtime. Medical Branch QUEtiapine 2022-0 Yes 100mg Take 100 [facility] 100 mg 3-10 mg by ity of tablet 08:52: mouth 2 [place] [address] (two) Medical times Branch daily. Lamotrigine 2022-0 Yes Take by [facility] vers 100 mg TbDL 3-10 mouth. ity of 08:52: [place] [address] Medical Branch busPIRone 2022-0 Yes 10mg Take 10 mg [facility] 10 mg 3-10 by mouth 2 ity of tablet 08:52: (two) [place] [address] times Medical daily. Branch atorvastati 2022-0 Yes 20mg Take 20 mg [facility] n 20 mg 3-10 by mouth ity of tablet 08:52: at [place] [address] bedtime. Medical Branch QUEtiapine 2022-0 Yes 100mg Take 100 [facility] 100 mg 3-10 mg by ity of tablet 08:52: mouth 2 [place] [address] (two) Medical times Branch daily. Lamotrigine 2022-0 Yes Take by [facility] vers 100 mg TbDL 3-10 mouth. ity of 08:52: [place] [address] Medical Branch busPIRone 2022-0 Yes 10mg Take 10 mg [facility] 10 mg 3-10 by mouth 2 ity of tablet 08:52: (two) [place] [address] times Medical daily. Branch atorvastati 2022-0 Yes 20mg Take 20 mg [facility] n 20 mg 3-10 by mouth ity of tablet 08:52: at [place] [address] bedtime. Medical Branch QUEtiapine 2022-0 Yes 100mg Take 100 [facility] 100 mg 3-10 mg by ity of tablet 08:52: mouth 2 [place] [address] (two) Medical times Branch daily. Lamotrigine 2022-0 Yes Take by [facility] vers 100 mg TbDL 3-10 mouth. ity of 08:52: [place] [address] Medical Branch busPIRone 2022-0 Yes 10mg Take 10 mg [facility] 10 mg 3-10 by mouth 2 ity of tablet 08:52: (two) [place] [address] times Medical daily. Branch atorvastati 2022-0 Yes 20mg Take 20 mg [facility] n 20 mg 3-10 by mouth ity of tablet 08:52: at [place] [address] bedtime. Medical Branch QUEtiapine 2022-0 Yes 100mg Take 100 [facility] 100 mg 3-10 mg by ity of tablet 08:52: mouth 2 [place] [address] (two) Medical times Branch daily. Lamotrigine 2022-0 Yes Take by [facility] vers 100 mg TbDL 3-10 mouth. ity of 08:52: [place] [address] Medical Branch busPIRone 2022-0 Yes 10mg Take 10 mg [facility] 10 mg 3-10 by mouth 2 ity of tablet 08:52: (two) [place] [address] times Medical daily. Branch atorvastati 2022-0 Yes 20mg Take 20 mg [facility] n 20 mg 3-10 by mouth ity of tablet 08:52: at [place] [address] bedtime. Medical Branch QUEtiapine 2022-0 Yes 100mg Take 100 [facility] 100 mg 3-10 mg by ity of tablet 08:52: mouth 2 [place] [address] (two) Medical times Branch daily. Lamotrigine 2022-0 Yes Take by [facility] vers 100 mg TbDL 3-10 mouth. ity of 08:52: [place] [address] Medical Branch busPIRone 2022-0 Yes 10mg Take 10 mg [facility] 10 mg 3-10 by mouth 2 ity of tablet 08:52: (two) [place] [address] times Medical daily. Branch atorvastati 2022-0 Yes 20mg Take 20 mg [facility] n 20 mg 3-10 by mouth ity of tablet 08:52: at [place] [address] bedtime. Medical Branch QUEtiapine 2022-0 Yes 100mg Take 100 [facility] 100 mg 3-10 mg by ity of tablet 08:52: mouth 2 [place] [address] (two) Medical times Branch daily. Lamotrigine 2022-0 Yes Take by [facility] vers 100 mg TbDL 3-10 mouth. ity of 08:52: [place] [address] Medical Branch busPIRone 2022-0 Yes 10mg Take 10 mg [facility] 10 mg 3-10 by mouth 2 ity of tablet 08:52: (two) [place] [address] times Medical daily. Branch atorvastati 2022-0 Yes 20mg Take 20 mg [facility] n 20 mg 3-10 by mouth ity of tablet 08:52: at [place] [address] bedtime. Medical Branch QUEtiapine 2022-0 Yes 100mg Take 100 [facility] 100 mg 3-10 mg by ity of tablet 08:52: mouth 2 [place] [address] (two) Medical times [place] daily. Lamotrigine 2022-0 Yes Take by [facility] vers 100 mg TbDL 3-10 mouth. ity of 08:52: [place] [address] Medical Branch busPIRone 2022-0 Yes 10mg Take 10 mg [facility] 10 mg 3-10 by mouth 2 ity of tablet 08:52: (two) [place] [address] times Medical daily. Branch atorvastati 2022-0 Yes 20mg Take 20 mg [facility] n 20 mg 3-10 by mouth ity of tablet 08:52: at [place] [address] bedtime. Medical Branch QUEtiapine 2022-0 Yes 100mg Take 100 [facility] 100 mg 3-10 mg by ity of tablet 08:52: mouth 2 [place] [address] (two) Medical times [place] daily. Lamotrigine 2022-0 Yes Take by [facility] vers 100 mg TbDL 3-10 mouth. ity of 08:52: [place] [address] Medical Branch busPIRone 2022-0 Yes 10mg Take 10 mg [facility] 10 mg 3-10 by mouth 2 ity of tablet 08:52: (two) [place] [address] times Medical daily. Branch atorvastati 2022-0 Yes 20mg Take 20 mg [facility] n 20 mg 3-10 by mouth ity of tablet 08:52: at [place] [address] bedtime. Medical Branch QUEtiapine 2021-0 Yes 100mg Take 100 [facility] 100 mg 3-10 mg by ity of tablet 08:52: mouth 2 [place] [address] (two) Medical times Branch daily. Lamotrigine 2-0 Yes Take by [facility] vers 100 mg TbDL 3-10 mouth. ity of 08:52: [place] [address] Medical Branch busPIRone 2022-0 Yes 10mg Take 10 mg [facility] 10 mg 3-10 by mouth 2 ity of tablet 08:52: (two) [place] [address] times Medical daily. Branch atorvastati 2021-0 Yes 20mg Take 20 mg [facility] n 20 mg 3-10 by mouth ity of tablet 08:52: at [place] [address] bedtime. Medical Branch QUEtiapine 2021-0 Yes 100mg Take 100 [facility] 100 mg 3-10 mg by ity of tablet 08:52: mouth 2 [place] [address] (two) Medical times Branch daily. Lamotrigine 2-0 Yes Take by [facility] vers 100 mg TbDL 3-10 mouth. ity of 08:52: [place] [address] Medical Branch busPIRone 2-0 Yes 10mg Take 10 mg [facility] 10 mg 3-10 by mouth 2 ity of tablet 08:52: (two) [place] [address] times Medical daily. Branch atorvastati 2021-0 Yes 20mg Take 20 mg [facility] n 20 mg 3-10 by mouth ity of tablet 08:52: at [place] [address] bedtime. Medical Branch QUEtiapine 2021-0 Yes 100mg Take 100 [facility] 100 mg 3-10 mg by ity of tablet 08:52: mouth 2 [place] [address] (two) Medical times Branch daily. clopidogrel 2021-0 Yes clopidogre [facility] 75 mg 3-10 l 75 mg ity of tablet 08:49: tablet 24 Medical Branch KCL 20 mEq 2021-0 Yes potassium [facility] tablet 3-10 chloride ity of 08:49: ER 20 mEq 24 tablet,ext Medical ended Branch release(pa rt/cryst) insulin 2021-0 Yes inject [facility] degludec 3-10 under the ity of (TRESIBA 08:49: skin. [place] FLEXTOUCH 24 Medical U-100) 100 Branch unit/mL (3 mL) InPn pantoprazol 2021-0 Yes 20mg Take 20 mg [facility] e 20 mg EC 3-10 by mouth ity o f tablet 08:49: daily. [address] clopidogrel 0 Yes clopidogre [facility] 75 mg 3-10 l 75 mg ity of tablet 08:49: tablet [address] Branch KCL 20 mEq 0 Yes potassium Un am[facility] tablet 3-10 chloride ity of 08:49: ER 20 mEq [place] 24 tablet,ext Medical ended Branch release(pa rt/cryst) insulin 0 Yes inject [facility] degludec 3-10 under the ity of (TRESIBA 08:49: skin. [place] FLEXTOUCH 24 Medical U-100) 100 Branch unit/mL (3 mL) InPn pantoprazol 0 Yes 20mg Take 20 mg [facility] e 20 mg EC 3-10 by mouth ity o f tablet 08:49: daily. [address] clopidogrel Yes clopidogre [facility] 75 mg 3-10 l 75 mg ity of tablet 08:49: tablet [address] KCL 20 mEq 0 Yes potassium [facility] tablet 3-10 chloride ity of 08:49: ER 20 mEq [place] 24 tablet,ext Medical ended Branch release(pa rt/cryst) insulin 0 Yes inject [facility] degludec 3-10 under the ity of (TRESIBA 08:49: skin. [place] FLEXTOUCH 24 Medical U-100) 100 Branch unit/mL (3 mL) InPn pantoprazol 0 Yes 20mg Take 20 mg [facility] e 20 mg EC 3-10 by mouth ity o f tablet 08:49: daily. [address] clopidogrel 0 Yes clopidogre [facility] 75 mg 3-10 l 75 mg ity of tablet 08:49: tablet [address] Branch KCL 20 mEq 0 Yes potassium [facility] tablet 3-10 chloride ity of 08:49: ER 20 mEq [place] 24 tablet,ext Medical ended Branch release(pa rt/cryst) insulin 0 Yes inject [facility] degludec 3-10 under the ity of (TRESIBA 08:49: skin. [place] FLEXTOUCH 24 Medical U-100) 100 Branch unit/mL (3 mL) InPn pantoprazol 2021-0 Yes 20mg Take 20 mg [facility] e 20 mg EC 3-10 by mouth ity o f tablet 08:49: daily. [address] clopidogrel 2021-0 Yes clopidogre [facility] 75 mg 3-10 l 75 mg ity of tablet 08:49: tablet [address] Branch KCL 20 mEq 2021-0 Yes potassium [facility] tablet 3-10 chloride ity of 08:49: ER 20 mEq [place] 24 tablet,ext Medical ended Branch release(pa rt/cryst) insulin 0 Yes inject [facility] degludec 3-10 under the ity of (TRESIBA 08:49: skin. [place] FLEXTOUCH 24 Medical U-100) 100 Branch unit/mL (3 mL) InPn pantoprazol 2021-0 Yes 20mg Take 20 mg [facility] e 20 mg EC 3-10 by mouth ity o f tablet 08:49: daily. [address] clopidogrel 2021-0 Yes clopidogre [facility] 75 mg 3-10 l 75 mg ity of tablet 08:49: tablet [address] KCL 20 mEq 2021-0 Yes potassium [facility] tablet 3-10 chloride ity of 08:49: ER 20 mEq [place] 24 tablet,ext Medical ended Branch release(pa rt/cryst) insulin 2021-0 Yes inject [facility] degludec 3-10 under the ity of (TRESIBA 08:49: skin. [place] FLEXTOUCH 24 Medical U-100) 100 Branch unit/mL (3 mL) InPn pantoprazol 2021-0 Yes 20mg Take 20 mg [facility] e 20 mg EC 3-10 by mouth ity o f tablet 08:49: daily. [address] clopidogrel 2021-0 Yes clopidogre [facility] 75 mg 3-10 l 75 mg ity of tablet 08:49: tablet [address] Branch KCL 20 mEq 2021-0 Yes potassium [facility] tablet 3-10 chloride ity of 08:49: ER 20 mEq [place] 24 tablet,ext Medical ended Branch release(pa rt/cryst) insulin 2021-0 Yes inject [facility] degludec 3-10 under the ity of (TRESIBA 08:49: skin. [place] FLEXTOUCH 24 Medical U-100) 100 Branch unit/mL (3 mL) InPn pantoprazol 2021-0 Yes 20mg Take 20 mg [facility] e 20 mg EC 3-10 by mouth ity o f tablet 08:49: daily. [address] clopidogrel 2022-0 Yes clopidogre [facility] 75 mg 3-10 l 75 mg ity of tablet 08:49: tablet [address] Branch KCL 20 mEq 0 Yes potassium [facility] tablet 3-10 chloride ity of 08:49: ER 20 mEq [place] 24 tablet,ext Medical ended Branch release(pa rt/cryst) insulin 0 Yes inject [facility] degludec 3-10 under the ity of (TRESIBA 08:49: skin. [place] FLEXTOUCH 24 Medical U-100) 100 Branch unit/mL (3 mL) InPn pantoprazol 0 Yes 20mg Take 20 mg [facility] e 20 mg EC 3-10 by mouth ity o f tablet 08:49: daily. [address] clopidogrel Yes clopidogre [facility] 75 mg 3-10 l 75 mg ity of tablet 08:49: tablet [address] Branch KCL 20 mEq 0 Yes potassium [facility] tablet 3-10 chloride ity of 08:49: ER 20 mEq [place] 24 tablet,ext Medical ended Branch release(pa rt/cryst) insulin 0 Yes inject [facility] degludec 3-10 under the ity of (TRESIBA 08:49: skin. [place] FLEXTOUCH 24 Medical U-100) 100 Branch unit/mL (3 mL) InPn pantoprazol 0 Yes 20mg Take 20 mg [facility] e 20 mg EC 3-10 by mouth ity o f tablet 08:49: daily. [address] clopidogrel Yes clopidogre [facility] 75 mg 3-10 l 75 mg ity of tablet 08:49: tablet [address] Branch KCL 20 mEq 0 Yes potassium [facility] tablet 3-10 chloride ity of 08:49: ER 20 mEq [place] 24 tablet,ext Medical ended Branch release(pa rt/cryst) insulin 0 Yes inject [facility] degludec 3-10 under the ity of (TRESIBA 08:49: skin. [place] FLEXTOUCH 24 Medical U-100) 100 Branch unit/mL (3 mL) InPn pantoprazol 0 Yes 20mg Take 20 mg [facility] e 20 mg EC 3-10 by mouth ity o f tablet 08:49: daily. [address] clopidogrel Yes clopidogre [facility] 75 mg 3-10 l 75 mg ity of tablet 08:49: tablet [address] Branch KCL 20 mEq 0 Yes potassium [facility] tablet 3-10 chloride ity of 08:49: ER 20 mEq [place] 24 tablet,ext Medical ended Branch release(pa rt/cryst) insulin 0 Yes inject [facility] degludec 3-10 under the ity of (TRESIBA 08:49: skin. [place] FLEXTOUCH 24 Medical U-100) 100 Branch unit/mL (3 mL) InPn pantoprazol 0 Yes 20mg Take 20 mg [facility] e 20 mg EC 3-10 by mouth ity o f tablet 08:49: daily. [address] Branch clopidogrel 0 Yes clopidogre [facility] 75 mg 3-10 l 75 mg ity of tablet 08:49: tablet [address] Branch KCL 20 mEq 0 Yes potassium [facility] tablet 3-10 chloride ity of 08:49: ER 20 mEq [place] 24 tablet,ext Medical ended Branch release(pa rt/cryst) insulin 0 Yes inject [facility] degludec 3-10 under the ity of (TRESIBA 08:49: skin. [place] FLEXTOUCH 24 Medical U-100) 100 Branch unit/mL (3 mL) InPn pantoprazol 0 Yes 20mg Take 20 mg [facility] e 20 mg EC 3-10 by mouth ity o f tablet 08:49: daily. [address] clopidogrel 0 Yes clopidogre [facility] 75 mg 3-10 l 75 mg ity of tablet 08:49: tablet [address] Branch KCL 20 mEq 0 Yes potassium [facility] tablet 3-10 chloride ity of 08:49: ER 20 mEq [place] 24 tablet,ext Medical ended Branch release(pa rt/cryst) insulin 0 Yes inject [facility] degludec 3-10 under the ity of (TRESIBA 08:49: skin. [place] FLEXTOUCH 24 Medical U-100) 100 Branch unit/mL (3 mL) InPn pantoprazol 2021-0 Yes 20mg Take 20 mg [facility] e 20 mg EC 3-10 by mouth ity o f tablet 08:49: daily. [address] clopidogrel 2021-0 Yes clopidogre [facility] 75 mg 3-10 l 75 mg ity of tablet 08:49: tablet [place] 24 Medical Branch KCL 20 mEq 2022-0 Yes potassium [facility] tablet 3-10 chloride ity of 08:49: ER 20 mEq [place] 24 tablet,ext Medical ended Branch release(pa rt/cryst) insulin 0 Yes inject [facility] degludec 3-10 under the ity of (TRESIBA 08:49: skin. [place] FLEXTOUCH 24 Medical U-100) 100 Branch unit/mL (3 mL) InPn pantoprazol 0 Yes 20mg Take 20 mg [facility] e 20 mg EC 3-10 by mouth ity o f tablet 08:49: daily. [address] Branch clopidogrel 0 Yes clopidogre [facility] 75 mg 3-10 l 75 mg ity of tablet 08:49: tablet [address] Branch KCL 20 mEq 0 Yes potassium [facility] tablet 3-10 chloride ity of 08:49: ER 20 mEq [place] 24 tablet,ext Medical ended Branch release(pa rt/cryst) insulin 0 Yes inject [facility] degludec 3-10 under the ity of (TRESIBA 08:49: skin. [place] FLEXTOUCH 24 Medical U-100) 100 Branch unit/mL (3 mL) InPn pantoprazol 0 Yes 20mg Take 20 mg [facility] e 20 mg EC 3-10 by mouth ity o f tablet 08:49: daily. [address] clopidogrel 0 Yes clopidogre [facility] 75 mg 3-10 l 75 mg ity of tablet 08:49: tablet [address] KCL 20 mEq 0 Yes potassium [facility] tablet 3-10 chloride ity of 08:49: ER 20 mEq [place] 24 tablet,ext Medical ended Branch release(pa rt/cryst) insulin 0 Yes inject [facility] degludec 3-10 under the ity of (TRESIBA 08:49: skin. [place] FLEXTOUCH 24 Medical U-100) 100 Branch unit/mL (3 mL) InPn pantoprazol 2021-0 Yes 20mg Take 20 mg [facility] e 20 mg EC 3-10 by mouth ity o f tablet 08:49: daily. [address] clopidogrel 0 Yes clopidogre [facility] 75 mg 3-10 l 75 mg ity of tablet 08:49: tablet [address] KCL 20 mEq 0 Yes potassium [facility] tablet 3-10 chloride ity of 08:49: ER 20 mEq [place] 24 tablet,ext Medical ended Branch release(pa rt/cryst) insulin 0 Yes inject [facility] degludec 3-10 under the ity of (TRESIBA 08:49: skin. [place] FLEXTOUCH 24 Medical U-100) 100 Branch unit/mL (3 mL) InPn pantoprazol 0 Yes 20mg Take 20 mg [facility] e 20 mg EC 3-10 by mouth ity o f tablet 08:49: daily. [place] [address] Medical Branch clopidogrel 0 Yes clopidogre [facility] 75 mg 3-10 l 75 mg ity of tablet 08:49: tablet [place] [address] Medical Branch KCL 20 mEq 0 Yes potassium [facility] tablet 3-10 chloride ity of 08:49: ER 20 mEq [place] 24 tablet,ext Medical ended Branch release(pa rt/cryst) insulin 0 Yes inject [facility] degludec 3-10 under the ity of (TRESIBA 08:49: skin. [place] FLEXTOUCH 24 Medical U-100) 100 Branch unit/mL (3 mL) InPn pantoprazol 0 Yes 20mg Take 20 mg [facility] e 20 mg EC 3-10 by mouth ity o f tablet 08:49: daily. [place] [address] Medical Branch clopidogrel 0 Yes clopidogre [facility] 75 mg 3-10 l 75 mg ity of tablet 08:49: tablet [place] [address] Medical Branch KCL 20 mEq 0 Yes potassium [facility] tablet 3-10 chloride ity of 08:49: ER 20 mEq [place] 24 tablet,ext Medical ended Branch release(pa rt/cryst) insulin 0 Yes inject [facility] degludec 3-10 under the ity of (TRESIBA 08:49: skin. [place] FLEXTOUCH 24 Medical U-100) 100 Branch unit/mL (3 mL) InPn pantoprazol 0 Yes 20mg Take 20 mg [facility] e 20 mg EC 3-10 by mouth ity o f tablet 08:49: daily. [place] [address] Medical Branch clopidogrel 0 Yes clopidogre [facility] 75 mg 3-10 l 75 mg ity of tablet 08:49: tablet [place] [address] Medical Branch KCL 20 mEq 0 Yes potassium [facility] tablet 3-10 chloride ity of 08:49: ER 20 mEq [place] 24 tablet,ext Medical ended Branch release(pa rt/cryst) insulin 0 Yes inject [facility] degludec 3-10 under the ity of (TRESIBA 08:49: skin. [place] FLEXTOUCH 24 Medical U-100) 100 Branch unit/mL (3 mL) InPn pantoprazol 2021-0 Yes 20mg Take 20 mg [facility] e 20 mg EC 3-10 by mouth ity o f tablet 08:49: daily. [place] [address] [facility] Branch clopidogrel 2021-0 Yes clopidogre [facility] 75 mg 3-10 l 75 mg ity of tablet 08:49: tablet [place] [address] Medical Branch KCL 20 mEq 2021-0 Yes potassium [place] tablet 3-10 chloride ity of 08:49: ER 20 mEq [place] 24 tablet,ext Medical ended Branch release(pa rt/cryst) insulin 0 Yes inject [facility] degludec 3-10 under the ity of (TRESIBA 08:49: skin. [place] FLEXTOUCH 24 Medical U-100) 100 Branch unit/mL (3 mL) InPn pantoprazol 2021-0 Yes 20mg Take 20 mg [facility] e 20 mg EC 3-10 by mouth ity o f tablet 08:49: daily. [place] [address] [facility] Branch clopidogrel 2021-0 Yes clopidogre [facility] 75 mg 3-10 l 75 mg ity of tablet 08:49: tablet [place] [address] Medical Branch KCL 20 mEq 2021-0 Yes potassium [place] tablet 3-10 chloride ity of 08:49: ER 20 mEq [place] 24 tablet,ext Medical ended Branch release(pa rt/cryst) insulin 0 Yes inject [facility] degludec 3-10 under the ity of (TRESIBA 08:49: skin. [place] FLEXTOUCH 24 Medical U-100) 100 Branch unit/mL (3 mL) InPn pantoprazol 2021-0 Yes 20mg Take 20 mg [facility] e 20 mg EC 3-10 by mouth ity o f tablet 08:49: daily. [place] [address] [facility] Branch clopidogrel 2021-0 Yes clopidogre [facility] 75 mg 3-10 l 75 mg ity of tablet 08:49: tablet [place] [address] Medical Branch KCL 20 mEq 2021-0 Yes potassium [place] tablet 3-10 chloride ity of 08:49: ER 20 mEq [place] 24 tablet,ext Medical ended Branch release(pa rt/cryst) insulin 2022-0 Yes inject [facility] degludec 3-10 under the ity of (TRESIBA 08:49: skin. [place] FLEXTOUCH 24 Medical U-100) 100 Branch unit/mL (3 mL) InPn pantoprazol 0 Yes 20mg Take 20 mg [facility] e 20 mg EC 3-10 by mouth ity o f tablet 08:49: daily. [address] Branch clopidogrel 0 Yes clopidogre [facility] 75 mg 3-10 l 75 mg ity of tablet 08:49: tablet [place] [address] Medical Branch KCL 20 mEq 0 Yes potassium [place] tablet 3-10 chloride ity of 08:49: ER 20 mEq [place] 24 tablet,ext Medical ended Branch release(pa rt/cryst) insulin 0 Yes inject [facility] degludec 3-10 under the ity of (TRESIBA 08:49: skin. [place] FLEXTOUCH 24 Medical U-100) 100 Branch unit/mL (3 mL) InPn pantoprazol Yes 20mg Take 20 mg [facility] e 20 mg EC 3-10 by mouth ity o f tablet 08:49: daily. [address] clopidogrel Yes clopidogre [facility] 75 mg 3-10 l 75 mg ity of tablet 08:49: tablet [address] Branch KCL 20 mEq 0 Yes potassium [place] tablet 3-10 chloride ity of 08:49: ER 20 mEq [place] 24 tablet,ext Medical ended Branch release(pa rt/cryst) insulin Yes inject [facility] degludec 3-10 under the ity of (TRESIBA 08:49: skin. [place] FLEXTOUCH 24 Medical U-100) 100 Branch unit/mL (3 mL) InPn pantoprazol 0 Yes 20mg Take 20 mg [facility] e 20 mg EC 3-10 by mouth ity o f tablet 08:49: daily. [address] Branch clopidogrel Yes clopidogre [facility] 75 mg 3-10 l 75 mg ity of tablet 08:49: tablet [address] Branch KCL 20 mEq 0 Yes potassium [place] tablet 3-10 chloride ity of 08:49: ER 20 mEq [place] 24 tablet,ext Medical ended Branch release(pa rt/cryst) insulin 0 Yes inject [facility] degludec 3-10 under the ity of (TRESIBA 08:49: skin. [place] FLEXTOUCH 24 Medical U-100) 100 Branch unit/mL (3 mL) InPn pantoprazol 0 Yes 20mg Take 20 mg [facility] e 20 mg EC 3-10 by mouth ity o f tablet 08:49: daily. [address] Branch clopidogrel 0 Yes clopidogre [facility] 75 mg 3-10 l 75 mg ity of tablet 08:49: tablet [place] [address] Medical Branch KCL 20 mEq 0 Yes potassium [place] tablet 3-10 chloride ity of 08:49: ER 20 mEq [place] 24 tablet,ext Medical ended Branch release(pa rt/cryst) insulin 0 Yes inject [facility] degludec 3-10 under the ity of (TRESIBA 08:49: skin. [place] FLEXTOUCH 24 Medical U-100) 100 Branch unit/mL (3 mL) InPn pantoprazol 0 Yes 20mg Take 20 mg [facility] e 20 mg EC 3-10 by mouth ity o f tablet 08:49: daily. [address] clopidogrel 0 Yes clopidogre [facility] 75 mg 3-10 l 75 mg ity of tablet 08:49: tablet [address] Branch KCL 20 mEq 0 Yes potassium [place] tablet 3-10 chloride ity of 08:49: ER 20 mEq [place] 24 tablet,ext Medical ended Branch release(pa rt/cryst) insulin 0 Yes inject [facility] degludec 3-10 under the ity of (TRESIBA 08:49: skin. [place] FLEXUCH 24 Medical U-100) 100 Branch unit/mL (3 mL) InPn pantoprazol 0 Yes 20mg Take 20 mg [facility] e 20 mg EC 3-10 by mouth ity o f tablet 08:49: daily. [address] clopidogrel 0 Yes clopidogre [facility] 75 mg 3-10 l 75 mg ity of tablet 08:49: tablet [address] Branch KCL 20 mEq 0 Yes potassium [place] tablet 3-10 chloride ity of 08:49: ER 20 mEq [place] 24 tablet,ext Medical ended Branch release(pa rt/cryst) insulin 0 Yes inject [facility] degludec 3-10 under the ity of (TRESIBA 08:49: skin. [place] FLEXTOUCH 24 Medical U-100) 100 Branch unit/mL (3 mL) InPn pantoprazol 0 Yes 20mg Take 20 mg [facility] e 20 mg EC 3-10 by mouth ity o f tablet 08:49: daily. [address] Branch clopidogrel Yes clopidogre [facility] 75 mg 3-10 l 75 mg ity of tablet 08:49: tablet [address] Branch KCL 20 mEq 0 Yes potassium [place] tablet 3-10 chloride ity of 08:49: ER 20 mEq [place] 24 tablet,ext Medical ended Branch release(pa rt/cryst) insulin 0 Yes inject [facility] degludec 3-10 under the ity of (TRESIBA 08:49: skin. [place] FLEXTOUCH 24 Medical U-100) 100 Branch unit/mL (3 mL) InPn pantoprazol Yes 20mg Take 20 mg [facility] e 20 mg EC 3-10 by mouth ity o f tablet 08:49: daily. [address] clopidogrel Yes clopidogre [facility] 75 mg 3-10 l 75 mg ity of tablet 08:49: tablet [address] Branch KCL 20 mEq Yes potassium [place] tablet 3-10 chloride ity of 08:49: ER 20 mEq [place] 24 tablet,ext Medical ended Branch release(pa rt/cryst) insulin 0 Yes inject [facility] degludec 3-10 under the ity of (TRESIBA 08:49: skin. [place] FLEXTOUCH 24 Medical U-100) 100 Branch unit/mL (3 mL) InPn pantoprazol Yes 20mg Take 20 mg [facility] e 20 mg EC 3-10 by mouth ity o f tablet 08:49: daily. [address] clopidogrel Yes clopidogre [facility] 75 mg 3-10 l 75 mg ity of tablet 08:49: tablet [address] Branch KCL 20 mEq 0 Yes potassium [place] tablet 3-10 chloride ity of 08:49: ER 20 mEq [place] 24 tablet,ext Medical ended Branch release(pa rt/cryst) insulin 0 Yes inject [facility] degludec 3-10 under the ity of (TRESIBA 08:49: skin. [place] FLEXTOUCH 24 Medical U-100) 100 Branch unit/mL (3 mL) InPn pantoprazol Yes 20mg Take 20 mg [facility] e 20 mg EC 3-10 by mouth ity o f tablet 08:49: daily. [address] clopidogrel Yes clopidogre [facility] 75 mg 3-10 l 75 mg ity of tablet 08:49: tablet [address] Branch KCL 20 mEq 0 Yes potassium [place] tablet 3-10 chloride ity of 08:49: ER 20 mEq [place] 24 tablet,ext Medical ended Branch release(pa rt/cryst) insulin 0 Yes inject [facility] degludec 3-10 under the ity of (TRESIBA 08:49: skin. [place] FLEXTOUCH 24 Medical U-100) 100 Branch unit/mL (3 mL) InPn pantoprazol Yes 20mg Take 20 mg [facility] e 20 mg EC 3-10 by mouth ity o f tablet 08:49: daily. [address] clopidogrel Yes clopidogre [facility] 75 mg 3-10 l 75 mg ity of tablet 08:49: tablet [address] Branch KCL 20 mEq 0 Yes potassium [place] tablet 3-10 chloride ity of 08:49: ER 20 mEq [place] 24 tablet,ext Medical ended Branch release(pa rt/cryst) insulin 0 Yes inject [facility] degludec 3-10 under the ity of (TRESIBA 08:49: skin. [place] FLEXTOUCH 24 Medical U-100) 100 Branch unit/mL (3 mL) InPn pantoprazol Yes 20mg Take 20 mg [facility] e 20 mg EC 3-10 by mouth ity o f tablet 08:49: daily. [address] clopidogrel Yes clopidogre [facility] 75 mg 3-10 l 75 mg ity of tablet 08:49: tablet [address] Branch KCL 20 mEq 0 Yes potassium [place] tablet 3-10 chloride ity of 08:49: ER 20 mEq [place] 24 tablet,ext Medical ended Branch release(pa rt/cryst) insulin 0 Yes inject [facility] degludec 3-10 under the ity of (TRESIBA 08:49: skin. [place] FLEXTOUCH 24 Medical U-100) 100 Branch unit/mL (3 mL) InPn pantoprazol 2022-0 Yes 20mg Take 20 mg [facility] e 20 mg EC 3-10 by mouth ity o f tablet 08:49: daily. [place] [address] Medical Branch sacubitriL- 2021-0 Yes [id number] 1{tbl} Take 1 [facility] valsartan 3-10 tablet by ity o f 97-103 mg 00:00: mouth 2 [place] tablet 00 (two) Medical times Branch daily. sacubitriL- 2021-0 Yes [id number] 1{tbl} Take 1 [facility] valsartan 3-10 tablet by ity o f 97-103 mg 00:00: mouth 2 [place] tablet 00 (two) Medical times Branch daily. sacubitriL- 2021-0 Yes [id number] 1{tbl} Take 1 [facility] valsartan 3-10 tablet by ity o f 97-103 mg 00:00: mouth 2 [place] tablet 00 (two) Medical times Branch daily. sacubitriL- 2021-0 Yes [id number] 1{tbl} Take 1 [facility] valsartan 3-10 tablet by ity o f 97-103 mg 00:00: mouth 2 [place] tablet 00 (two) Medical times Branch daily. sacubitriL- 2021-0 Yes [id number] 1{tbl} Take 1 [facility] valsartan 3-10 tablet by ity o f 97-103 mg 00:00: mouth 2 [place] tablet 00 (two) Medical times Branch daily. sacubitriL- 2021-0 Yes [id number] 1{tbl} Take 1 [facility] valsartan 3-10 tablet by ity o f 97-103 mg 00:00: mouth 2 [place] tablet 00 (two) Medical times Branch daily. sacubitriL- 2021-0 Yes [id number] 1{tbl} Take 1 [facility] valsartan 3-10 tablet by ity o f 97-103 mg 00:00: mouth 2 [place] tablet 00 (two) Medical times Branch daily. sacubitriL- 2021-0 Yes [id number] 1{tbl} Take 1 [facility] valsartan 3-10 tablet by ity o f 97-103 mg 00:00: mouth 2 [place] tablet 00 (two) Medical times Branch daily. sacubitriL- 2021-0 2021- No [id number] 1{tbl} Take 1 [facility] valsartan 3-10 12-13 tablet by ity of 97-103 mg 00:00: 00:00 [place] :00 (two) Medical times Branch daily. sacubitriL- 2021- No [id number] 1{tbl} Take 1 [facility] valsartan 3-10 12-13 tablet by ity of 97-103 mg 00:00: 00:00 [place] tablet 00 :00 (two) Medical times Branch daily. busPIRone busPIRone No 1{table BID busPIRone HCl 10 MG HCl 10 MG 2-22 t_as_ne HCl 10 MG 00:00: eded} 00 Citalopram Citalopram No 1{table QD Citalopram Hydrobromid Hydrobromid 2-22 t} Hydrobromi e 20 MG e 20 MG 00:00: de 20 MG 00 busPIRone busPIRone 0 No 1{table BID busPIRone HCl 10 MG HCl 10 MG 2-22 t_as_ne HCl 10 MG 00:00: eded} 00 busPIRone busPIRone 2021-0 No 1{table BID busPIRone HCl 10 MG HCl 10 MG 2-22 t_as_ne HCl 10 MG 00:00: eded} 00 Citalopram Citalopram 2021- No 1{table QD Citalopram Hydrobromid Hydrobromid 2-22 t} Hydrobromi e 20 MG e 20 MG 00:00: de 20 MG 00 busPIRone busPIRone 0 No 1{table BID busPIRone HCl 10 MG HCl 10 MG 2-22 t_as_ne HCl 10 MG 00:00: eded} 00 Citalopram Citalopram 2021-0 No 1{table QD Citalopram Hydrobromid Hydrobromid 2-22 t} Hydrobromi e 20 MG e 20 MG 00:00: de 20 MG 00 busPIRone busPIRone 2021-0 No 1{table BID busPIRone HCl 10 MG HCl 10 MG 2-22 t_as_ne HCl 10 MG 00:00: eded} 00 Citalopram Citalopram 2021-0 No 1{table QD Citalopram Hydrobromid Hydrobromid 2-22 t} Hydrobromi e 20 MG e 20 MG 00:00: de 20 MG 00 busPIRone busPIRone 0 No 1{table BID busPIRone HCl 10 MG HCl 10 MG 2-22 t_as_ne HCl 10 MG 00:00: eded} 00 Citalopram Citalopram 0 No 1{table QD Citalopram Hydrobromid Hydrobromid 2-22 t} Hydrobromi e 20 MG e 20 MG 00:00: de 20 MG 00 busPIRone busPIRone 0 No 1{table BID busPIRone HCl 10 MG HCl 10 MG 2-22 t_as_ne HCl 10 MG 00:00: eded} 00 Citalopram Citalopram No 1{table QD Citalopram Hydrobromid Hydrobromid 2-22 t} Hydrobromi e 20 MG e 20 MG 00:00: de 20 MG 00 Citalopram Citalopram No 1{table QD Citalopram Hydrobromid Hydrobromid 2-22 t} Hydrobromi e 20 MG e 20 MG 00:00: de 20 MG 00 busPIRone busPIRone 0 No 1{table BID busPIRone HCl 10 MG HCl 10 MG 2-22 t_as_ne HCl 10 MG 00:00: eded} 00 Citalopram Citalopram 0 No 1{table QD Citalopram Hydrobromid Hydrobromid 2-22 t} Hydrobromi e 20 MG e 20 MG 00:00: de 20 MG 00 FUROSEMIDE 2021-0 Yes [id number] TAKE ONE [facility] 80 mg 2-03 TABLET BY ity of tablet 00:00: MOUTH [place] 00 TWICE A Medical DAY Branch FUROSEMIDE 2021-0 Yes [id number] TAKE ONE [facility] 80 mg 2-03 TABLET BY ity of tablet 00:00: MOUTH [place] 00 TWICE A Medical DAY Branch FUROSEMIDE 2021-0 Yes [id number] TAKE ONE [facility] 80 mg 2-03 TABLET BY ity of tablet 00:00: MOUTH [place] 00 TWICE A Medical DAY Branch FUROSEMIDE 2021-0 2021- No [id number] TAKE ONE [facility] 80 mg 2-03 -12 TABLET BY ity of tablet 00:00: 00:00 MOUTH [place] 00 :00 TWICE A Medical DAY Branch sacubitril- 2020-0 Yes 1{tbl} Q.5D Take [address] valsartan 6-16 tablet by [facility] (ENTRESTO) 10:06: mouth 2 Medi margarita 49-51 mg 33 (two) Center Tab times daily. bisoprolol 2020-0 Yes 10mg QD Take [address] (ZEBETA) 10 6-16 by mouth [facility] MG tablet 10:05: daily. Medica l 07 Center clopidogrel 2020-[address] [facility] (PLAVIX) 75 6-16 l 75 mg [facility] tablet 09:56: tablet Medica l 48 daily Center atorvastati 2020-0 Yes 20mg QD Take [address] [facility] n (LIPITOR) 6-16 by mouth [facility] 20 MG 09:56: daily. Medical tablet 48 Center lamoTRIgine 2020-0 Yes 100mg QD Take [address] (LAMICTAL) 6-16 mg by [facility] 100 MG 09:56: mouth Medical tablet 48 daily. Center levothyroxi 2020-0 Yes 88ug Take [address] [facility] ne 6-16 mcg by [facility] (SYNTHROID, 09:56: mouth Medic al LEVOTHROID) 48 Every Center 88 MCG morning on tablet an empty stomach. omega-3 2020-0 Yes 1g QD Take [address] [facility] fatty 6-16 by mouth [facility] acids-fish 09:56: daily. Medic al oil 48 Center 340-1,000 mg Cap per capsule cholecalcif 2020-0 Yes 1000U QD Take 1,[address] [facility] william 6-16 Units by [facility] (VITAMIN 09:56: mouth Medical D3) 25 mcg 48 daily. Center (1,000 unit) tablet furosemide 2020-0 Yes 20mg Q.5D Take 0.[address] [facility] [facility] (LASIX) 40 3-17 tablets [facility] MG tablet 00:00: (20 mg Medica l 00 total) by Center mouth 2 (two) times daily. famotidine 2020-0 Yes 20mg Q.5D Take 1 [facility] (PEPCID) 20 3-17 tablet (20 Joselyn kes MG tablet 00:00: mg total) Med ical 00 by mouth 2 Center (two) times daily. venlafaxine 2019-0 Yes 75mg QD Take [address] [facility] (EFFEXOR-XR 8-26 by mouth [facility] ) 75 MG 24 00:00: daily . [facility] hr capsule [place] levothyroxi 2019-0 Yes [id number] 50ug Take 1 [facility] ne 50 mcg 7-31 tablet by ity o f tablet 00:00: mouth [place] 00 every Medical morning. [place] levothyroxi 2019-0 Yes [id number] 50ug Take 1 [facility] ne 50 mcg 7-31 tablet by ity o f tablet 00:00: mouth [place] 00 every Medical morning. Branch levothyroxi 2019-0 Yes [id number] 50ug Take 1 Univers ne 50 mcg 7-31 tablet by ity o f tablet 00:00: mouth [place] 00 every Medical morning. Branch levothyroxi 2018-0 Yes [id number] 50ug Take 1 [facility] ne 50 mcg 7-31 tablet by ity o f tablet 00:00: mouth [place] 00 every Medical morning. Branch levothyroxi 2018-0 Yes [id number] 50ug Take 1 [facility] ne 50 mcg 7-31 tablet by ity o f tablet 00:00: mouth [place] 00 every Medical morning. Branch levothyroxi 2018-0 Yes [id number] 50ug Take 1 [facility] ne 50 mcg 7-31 tablet by ity o f tablet 00:00: mouth [place] 00 every Medical morning. Branch levothyroxi 2018-0 Yes [id number] 50ug Take 1 Univers ne 50 mcg 7-31 tablet by ity o f tablet 00:00: mouth [place] 00 every Medical morning. [place] levothyroxi 2019-0 Yes [id number] 50ug Take 1 [facility] ne 50 mcg 7-31 tablet by ity o f tablet 00:00: mouth [place] 00 every Medical morning. Branch levothyroxi 2018-0 Yes [id number] 50ug Take 1 [facility] ne 50 mcg 7-31 tablet by ity o f tablet 00:00: mouth [place] 00 every Medical morning. Branch levothyroxi 2019-0 Yes [id number] 50ug Take 1 [facility] ne 50 mcg 7-31 tablet by ity o f tablet 00:00: mouth [place] 00 every Medical morning. Branch levothyroxi 2019-0 Yes [id number] 50ug Take 1 [facility] ne 50 mcg 7-31 tablet by ity o f tablet 00:00: mouth [place] 00 every Medical morning. Branch levothyroxi 2019-0 Yes [id number] 50ug Take 1 [facility] ne 50 mcg 7-31 tablet by ity o f tablet 00:00: mouth [place] 00 every Medical morning. Branch levothyroxi 2019-0 Yes [id number] 50ug Take 1 Univers ne 50 mcg 7-31 tablet by ity o f tablet 00:00: mouth [place] 00 every Medical morning. Branch levothyroxi 2019-0 Yes [id number] 50ug Take 1 [facility] ne 50 mcg 7-31 tablet by ity o f tablet 00:00: mouth [place] 00 every Medical morning. Branch levothyroxi 2019-0 Yes [id number] 50ug Take 1 Univers ne 50 mcg 7-31 tablet by ity o f tablet 00:00: mouth [place] 00 every Medical morning. Branch levothyroxi 2019-0 Yes [id number] 50ug Take 1 Univers ne 50 mcg 7-31 tablet by ity o f tablet 00:00: mouth [place] 00 every Medical morning. Branch levothyroxi 2019-0 Yes [id number] 50ug Take 1 Univers ne 50 mcg 7-31 tablet by ity o f tablet 00:00: mouth [place] 00 every Medical morning. Branch levothyroxi 2018-0 Yes [id number] 50ug Take 1 [facility] ne 50 mcg 7-31 tablet by ity o f tablet 00:00: mouth [place] 00 every Medical morning. Branch levothyroxi 2018-0 Yes [id number] 50ug Take 1 [facility] ne 50 mcg 7-31 tablet by ity o f tablet 00:00: mouth [place] 00 every Medical morning. Branch levothyroxi 2019-0 Yes [id number] 50ug Take 1 Univers ne 50 mcg 7-31 tablet by ity o f tablet 00:00: mouth [place] 00 every Medical morning. Branch levothyroxi 2019-0 Yes [id number] 50ug Take 1 Univers ne 50 mcg 7-31 tablet by ity o f tablet 00:00: mouth [place] 00 every Medical morning. Branch levothyroxi 2019-0 Yes [id number] 50ug Take 1 Univers ne 50 mcg 7-31 tablet by ity o f tablet 00:00: mouth [place] 00 every Medical morning. Branch levothyroxi 2019-0 Yes [id number] 50ug Take 1 Univers ne 50 mcg 7-31 tablet by ity o f tablet 00:00: mouth [place] 00 every Medical morning. Branch levothyroxi 2019-0 Yes [id number] 50ug Take 1 Univers ne 50 mcg 7-31 tablet by ity o f tablet 00:00: mouth [place] 00 every Medical morning. Branch levothyroxi 2019-0 Yes [id number] 50ug Take 1 Univers ne 50 mcg 7-31 tablet by ity o f tablet 00:00: mouth [place] 00 every Medical morning. Branch levothyroxi 2019-0 Yes [id number] 50ug Take 1 Univers ne 50 mcg 7-31 tablet by ity o f tablet 00:00: mouth [place] 00 every Medical morning. Branch levothyroxi 2019-0 Yes [id number] 50ug Take 1 Univers ne 50 mcg 7-31 tablet by ity o f tablet 00:00: mouth [place] 00 every Medical morning. Branch levothyroxi 2019-0 Yes [id number] 50ug Take 1 Univers ne 50 mcg 7-31 tablet by ity o f tablet 00:00: mouth [place] 00 every Medical morning. Branch levothyroxi 2019-0 Yes [id number] 50ug Take 1 Univers ne 50 mcg 7-31 tablet by ity o f tablet 00:00: mouth [place] 00 every Medical morning. Branch levothyroxi 2019-0 Yes [id number] 50ug Take 1 Univers ne 50 mcg 7-31 tablet by ity o f tablet 00:00: mouth [place] 00 every Medical morning. Branch levothyroxi 2019-0 Yes [id number] 50ug Take 1 Univers ne 50 mcg 7-31 tablet by ity o f tablet 00:00: mouth [place] 00 every Medical morning. Branch levothyroxi 2019-0 Yes [id number] 50ug Take 1 Univers ne 50 mcg 7-31 tablet by ity o f tablet 00:00: mouth [place] 00 every Medical morning. Branch levothyroxi 2019-0 Yes [id number] 50ug Take 1 Univers ne 50 mcg 7-31 tablet by ity o f tablet 00:00: mouth [place] 00 every Medical morning. Branch levothyroxi 2019-0 Yes [id number] 50ug Take 1 Univers ne 50 mcg 7-31 tablet by ity o f tablet 00:00: mouth [place] 00 every Medical morning. Branch levothyroxi 2019-0 Yes [id number] 50ug Take 1 Univers ne 50 mcg 7-31 tablet by ity o f tablet 00:00: mouth [place] 00 every Medical morning. Branch levothyroxi 2019-0 Yes [id number] 50ug Take 1 Univers ne 50 mcg 7-31 tablet by ity o f tablet 00:00: mouth [place] 00 every Medical morning. Branch potassium Yes 20meq QD Take [address] [facility] [address] chloride SA 6-10 mEq by [employer] (K-DUR,KLOR 00:00: mouth Medic al -CON) 20 00 daily . Center MEQ tablet Creon Creon 2017-06- No Meli as Common 2-10 - [place] directed Spiri t 00:00: 00:00 - [facility] 00 :00 [facility] Gabapentin Gabapentin 2017-06 Yes Meli as Common - [place] directed Spirit 00:00: - [facility] 00 [facility] Viberzi Viberzi 2017-06- No Meli 1 tablet C ommon 06-29 [place] with food Spir it 00:00: 00:00 - [facility] 00 :00 [facility] Carvedilol Carvedilol Yes Meli 1 tablet Common [facility] Furosemide Furosemide Yes Meli 1 tablet Common [facility] Levothyroxi Levothyroxi Yes Meli 1 tablet Common ne Sodium ne Sodium [place] on an [facility] empty - [facility] stomach in [facility] Aspirin 81 Aspirin 81 Yes Meli 1 tablet Common [facility] Paroxetine Paroxetine Yes Meli 1 tablet Common HCl HCl [facility] in the [facility] morning [facility] Amitriptyli Amitriptyli Yes Meli 1 tablet Common ne HCl ne HCl [facility] Vitamin D-3 Vitamin D-3 Yes Meli 1 tablet Common [facility] Clopidogrel Clopidogrel Yes Meli 1 tablet Common Bisulfate Bisulfate [facility] Losartan Losartan Yes Meli 1 tablet Co mmon Potassium Potassium [facility] Atorvastati Atorvastati Yes Meli 1 tablet Common n Calcium n Calcium [facility] Trazodone Trazodone Yes Meli 1 tablet Common HCl HCl [place] at bedtime Spir it as needed - [facility] for sleep [facility] Amlodipine Amlodipine Yes Meli 1 tablet Common Besylate Besylate [facility] Fish Oil Fish Oil Yes Meli 1 capsule C ommon [facility] Tresiba 200 Tresiba 200 No QD Tresiba units/mL units/mL 200 units/mL Bisoprolol Bisoprolol No 1{table QD Bisoprolol Fumarate 10 Fumarate 10 t} Fumarate MG MG 10 MG QUEtiapine QUEtiapine No 2{table QUEtiapine Fumarate Fumarate ts} Fumarate 100 MG 100 MG 100 MG Atorvastati Atorvastati No 1{table Atorvastat n Calcium n Calcium t} in Calcium 20 MG 20 MG 20 MG Furosemide Furosemide No 1{table QD Furosemide 80 MG 80 MG t} 80 MG Cetirizine Cetirizine No 1{table QD Cetirizine HCl 10 MG HCl 10 MG t} HCl 10 MG Fluconazole Fluconazole No 1{table Fluconazol 150 MG 150 MG t} e 150 MG Potassium Potassium No 1{capsu BID Potassium Chloride 20 Chloride 20 le} Chloride MEQ MEQ 20 MEQ Entresto Entresto No 1{table QD Entresto 24-26 MG 24-26 MG t} 24-26 MG Clopidogrel Clopidogrel No 1{table QD Clopidogre Bisulfate Bisulfate t} l 75 MG 75 MG Bisulfate 75 MG Pantoprazol Pantoprazol No 1{table QD Pantoprazo e Sodium 40 e Sodium 40 t} le Sodium MG MG 40 MG Tresiba 200 Tresiba 200 No QD Tresiba units/mL units/mL 200 units/mL Bisoprolol Bisoprolol No 1{table QD Bisoprolol Fumarate 10 Fumarate 10 t} Fumarate MG MG 10 MG QUEtiapine QUEtiapine No 2{table QUEtiapine Fumarate Fumarate ts} Fumarate 100 MG 100 MG 100 MG Atorvastati Atorvastati No 1{table Atorvastat n Calcium n Calcium t} in Calcium 20 MG 20 MG 20 MG Furosemide Furosemide No 1{table QD Furosemide 80 MG 80 MG t} 80 MG Cetirizine Cetirizine No 1{table QD Cetirizine HCl 10 MG HCl 10 MG t} HCl 10 MG Potassium Potassium No 1{capsu BID Potassium Chloride 20 Chloride 20 le} Chloride MEQ MEQ 20 MEQ Tresiba 200 Tresiba 200 No QD Tresiba units/mL units/mL 200 units/mL Entresto Entresto No 1{table QD Entresto 24-26 MG 24-26 MG t} 24-26 MG Fluconazole Fluconazole No 1{table Fluconazol 150 MG 150 MG t} e 150 MG Clopidogrel Clopidogrel No 1{table QD Clopidogre Bisulfate Bisulfate t} l 75 MG 75 MG Bisulfate 75 MG Pantoprazol Pantoprazol No 1{table QD Pantoprazo e Sodium 40 e Sodium 40 t} le Sodium MG MG 40 MG Furosemide Furosemide No 1{table QD Furosemide 80 MG 80 MG t} 80 MG Cetirizine Cetirizine No 1{table QD Cetirizine HCl 10 MG HCl 10 MG t} HCl 10 MG Bisoprolol Bisoprolol No 1{table QD Bisoprolol Fumarate 10 Fumarate 10 t} Fumarate MG MG 10 MG Atorvastati Atorvastati No 1{table Atorvastat n Calcium n Calcium t} in Calcium 20 MG 20 MG 20 MG QUEtiapine QUEtiapine No 2{table QUEtiapine Fumarate Fumarate ts} Fumarate 100 MG 100 MG 100 MG Levothyroxi Levothyroxi No Levothyrox ne Sodium ne Sodium ine Sodium 125 MCG 125 MCG 125 MCG Atorvastati Atorvastati No 1{table Atorvastat n Calcium n Calcium t} in Calcium 20 MG 20 MG 20 MG Pantoprazol Pantoprazol No 1{table QD Pantoprazo e Sodium 40 e Sodium 40 t} le Sodium MG MG 40 MG Levothyroxi Levothyroxi No Levothyrox ne Sodium ne Sodium ine Sodium 125 MCG 125 MCG 125 MCG QUEtiapine QUEtiapine No 2{table QUEtiapine Fumarate Fumarate ts} Fumarate 100 MG 100 MG 100 MG Potassium Potassium No 1{capsu BID Potassium Chloride 20 Chloride 20 le} Chloride MEQ MEQ 20 MEQ Bisoprolol Bisoprolol No 1{table QD Bisoprolol Fumarate 10 Fumarate 10 t} Fumarate MG MG 10 MG Fluconazole Fluconazole No 1{table Fluconazol 150 MG 150 MG t} e 150 MG Levothyroxi Levothyroxi No QD Levothyrox ne Sodium ne Sodium ine Sodium 125 MCG 125 MCG 125 MCG Cetirizine Cetirizine No 1{table QD Cetirizine HCl 10 MG HCl 10 MG t} HCl 10 MG Furosemide Furosemide No 1{table QD Furosemide 80 MG 80 MG t} 80 MG Entresto Entresto No 1{table QD Entresto 24-26 MG 24-26 MG t} 24-26 MG Tresiba 200 Tresiba 200 No QD Tresiba units/mL units/mL 200 units/mL Clopidogrel Clopidogrel No 1{table QD Clopidogre Bisulfate Bisulfate t} l 75 MG 75 MG Bisulfate 75 MG Atorvastati Atorvastati No 1{table Atorvastat n Calcium n Calcium t} in Calcium 20 MG 20 MG 20 MG Pantoprazol Pantoprazol No 1{table QD Pantoprazo e Sodium 40 e Sodium 40 t} le Sodium MG MG 40 MG Levothyroxi Levothyroxi No Levothyrox ne Sodium ne Sodium ine Sodium 125 MCG 125 MCG 125 MCG QUEtiapine QUEtiapine No 2{table QUEtiapine Fumarate Fumarate ts} Fumarate 100 MG 100 MG 100 MG Potassium Potassium No 1{capsu BID Potassium Chloride 20 Chloride 20 le} Chloride MEQ MEQ 20 MEQ Bisoprolol Bisoprolol No 1{table QD Bisoprolol Fumarate 10 Fumarate 10 t} Fumarate MG MG 10 MG Fluconazole Fluconazole No 1{table Fluconazol 150 MG 150 MG t} e 150 MG Levothyroxi Levothyroxi No QD Levothyrox ne Sodium ne Sodium ine Sodium 125 MCG 125 MCG 125 MCG Cetirizine Cetirizine No 1{table QD Cetirizine HCl 10 MG HCl 10 MG t} HCl 10 MG Furosemide Furosemide No 1{table QD Furosemide 80 MG 80 MG t} 80 MG Entresto Entresto No 1{table QD Entresto 24-26 MG 24-26 MG t} 24-26 MG Tresiba 200 Tresiba 200 No QD Tresiba units/mL units/mL 200 units/mL Clopidogrel Clopidogrel No 1{table QD Clopidogre Bisulfate Bisulfate t} l 75 MG 75 MG Bisulfate 75 MG Atorvastati Atorvastati No 1{table Atorvastat n Calcium n Calcium t} in Calcium 20 MG 20 MG 20 MG Pantoprazol Pantoprazol No 1{table QD Pantoprazo e Sodium 40 e Sodium 40 t} le Sodium MG MG 40 MG Levothyroxi Levothyroxi No Levothyrox ne Sodium ne Sodium ine Sodium 125 MCG 125 MCG 125 MCG QUEtiapine QUEtiapine No 2{table QUEtiapine Fumarate Fumarate ts} Fumarate 100 MG 100 MG 100 MG Potassium Potassium No 1{capsu BID Potassium Chloride 20 Chloride 20 le} Chloride MEQ MEQ 20 MEQ Bisoprolol Bisoprolol No 1{table QD Bisoprolol Fumarate 10 Fumarate 10 t} Fumarate MG MG 10 MG Fluconazole Fluconazole No 1{table Fluconazol 150 MG 150 MG t} e 150 MG Levothyroxi Levothyroxi No QD Levothyrox ne Sodium ne Sodium ine Sodium 125 MCG 125 MCG 125 MCG Cetirizine Cetirizine No 1{table QD Cetirizine HCl 10 MG HCl 10 MG t} HCl 10 MG Furosemide Furosemide No 1{table QD Furosemide 80 MG 80 MG t} 80 MG Entresto Entresto No 1{table QD Entresto 24-26 MG 24-26 MG t} 24-26 MG Tresiba 200 Tresiba 200 No QD Tresiba units/mL units/mL 200 units/mL Clopidogrel Clopidogrel No 1{table QD Clopidogre Bisulfate Bisulfate t} l 75 MG 75 MG Bisulfate 75 MG Atorvastati Atorvastati No 1{table Atorvastat n Calcium n Calcium t} in Calcium 20 MG 20 MG 20 MG Pantoprazol Pantoprazol No 1{table QD Pantoprazo e Sodium 40 e Sodium 40 t} le Sodium MG MG 40 MG Levothyroxi Levothyroxi No Levothyrox ne Sodium ne Sodium ine Sodium 125 MCG 125 MCG 125 MCG QUEtiapine QUEtiapine No 2{table QUEtiapine Fumarate Fumarate ts} Fumarate 100 MG 100 MG 100 MG Potassium Potassium No 1{capsu BID Potassium Chloride 20 Chloride 20 le} Chloride MEQ MEQ 20 MEQ Bisoprolol Bisoprolol No 1{table QD Bisoprolol Fumarate 10 Fumarate 10 t} Fumarate MG MG 10 MG Fluconazole Fluconazole No 1{table Fluconazol 150 MG 150 MG t} e 150 MG Levothyroxi Levothyroxi No QD Levothyrox ne Sodium ne Sodium ine Sodium 125 MCG 125 MCG 125 MCG Cetirizine Cetirizine No 1{table QD Cetirizine HCl 10 MG HCl 10 MG t} HCl 10 MG Furosemide Furosemide No 1{table QD Furosemide 80 MG 80 MG t} 80 MG Entresto Entresto No 1{table QD Entresto 24-26 MG 24-26 MG t} 24-26 MG Tresiba 200 Tresiba 200 No QD Tresiba units/mL units/mL 200 units/mL Clopidogrel Clopidogrel No 1{table QD Clopidogre Bisulfate Bisulfate t} l 75 MG 75 MG Bisulfate 75 MG Pantoprazol Pantoprazol No 1{table QD Pantoprazo e Sodium 40 e Sodium 40 t} le Sodium MG MG 40 MG Clopidogrel Clopidogrel No 1{table QD Clopidogre Bisulfate Bisulfate t} l 75 MG 75 MG Bisulfate 75 MG Entresto Entresto No 1{table QD Entresto 24-26 MG 24-26 MG t} 24-26 MG Cetirizine Cetirizine No 1{table QD Cetirizine HCl 10 MG HCl 10 MG t} HCl 10 MG Tresiba 200 Tresiba 200 No QD Tresiba units/mL units/mL 200 units/mL Fluconazole Fluconazole No 1{table Fluconazol 150 MG 150 MG t} e 150 MG Potassium Potassium No 1{capsu BID Potassium Chloride 20 Chloride 20 le} Chloride MEQ MEQ 20 MEQ QUEtiapine QUEtiapine No 2{table QUEtiapine Fumarate Fumarate ts} Fumarate 100 MG 100 MG 100 MG Furosemide Furosemide No 1{table QD Furosemide 80 MG 80 MG t} 80 MG Bisoprolol Bisoprolol No 1{table QD Bisoprolol Fumarate 10 Fumarate 10 t} Fumarate MG MG 10 MG Levothyroxi Levothyroxi No QD Levothyrox ne Sodium ne Sodium ine Sodium 100 MCG 100 MCG 100 MCG Atorvastati Atorvastati No 1{table Atorvastat n Calcium n Calcium t} in Calcium 20 MG 20 MG 20 MG Fluconazole Fluconazole No 1{table Fluconazol 150 MG 150 MG t} e 150 MG Potassium Potassium No 1{capsu BID Potassium Chloride 20 Chloride 20 le} Chloride MEQ MEQ 20 MEQ Entresto Entresto No 1{table QD Entresto 24-26 MG 24-26 MG t} 24-26 MG Clopidogrel Clopidogrel No 1{table QD Clopidogre Bisulfate Bisulfate t} l 75 MG 75 MG Bisulfate 75 MG Pantoprazol Pantoprazol No 1{table QD Pantoprazo e Sodium 40 e Sodium 40 t} le Sodium MG MG 40 MG Toujeo Toujeo 2019- No Meli 110 units Comm on SoloStar SoloStar 12-27 Millender S pirit 00:00 - [facility]I :00 [facility] Potassium Potassium 2019- No Meli 1 capsule Common Chloride Chloride 12-27 Millender S pirit 00:00 - CHI :00 [facility] Victoza Victoza 2019- No Meli 1.8 mg Commo n Millender Spirit 00:00 - [facility] :00 [facility] Immunizations Ordered Immunization Filled Immunization Date Status Commen ts Source Name Name Flucelvax - Flucelvax - 2018-04-29 Completed Common Spiri t multidose vial multidose vial 10:12:00 - [facility] Flucelvax - Flucelvax - 2018-04-29 Completed [facility] t multidose vial multidose vial 10:12:00 - [facility] Flucelvax - Flucelvax - 2018-04-29 Completed [facility] multidose vial multidose vial 10:12:00 - [facility] Flucelvax - Flucelvax - 2018-04-29 Completed [facility] t multidose vial multidose vial 10:12:00 - [facility] Flucelvax - Flucelvax - 2018-04-29 Completed [facility] t multidose vial multidose vial 10:12:00 - [facility] Flucelvax - Flucelvax - 2018-04-29 Completed [facility] multidose vial multidose vial 10:12:00 - [facility] Flucelvax - Flucelvax - 2018-04-29 Completed [facility] multidose vial multidose vial 10:12:00 - [facility] Flucelvax - Flucelvax - 2018-04-29 Completed [facility] t multidose vial multidose vial 10:12:00 - [facility] Vital Signs Vital Name Observation Time Observation Value Comments Source Systolic blood 2022-08-20 16:19:00 157 mm[Hg] Univer sity of pressure [facility] Diastolic blood 2022-08-20 16:19:00 77 mm[Hg] Unive rsity of pressure [facility] Heart rate 2022-08-20 16:19:00 67 /min [facility] Respiratory rate 2022-08-20 16:19:00 18 /min [facility] Oxygen saturation in 2022-08-20 16:19:00 98 /min [facility] blood by [facility] Pulse oximetry Branch Body temperature 2022-08-20 11:40:00 36.28 Nae [facility] Body height 2022-08-12 19:00:00 160 cm [facility] Body weight 2022-08-12 19:00:00 82.101 kg [facility] BMI 2022-08-12 19:00:00 32.06 kg/m2 [facility] Systolic blood 2022-08-06 19:17:00 195 mm[Hg] [facility] Diastolic blood 2022-08-06 19:17:00 92 mm[Hg] Unive rsity [facility] Heart rate 2022-08-06 19:17:00 53 /min [facility] Body temperature 2022-08-06 19:17:00 36.78 Nae [facility] Respiratory rate 2022-08-06 19:17:00 16 /min [facility] Body height 2022-08-06 19:17:00 160 cm [facility] Body weight 2022-08-06 19:17:00 82.373 kg [facility] BMI 2022-08-06 19:17:00 32.17 kg/m2 [facility] Oxygen saturation in 2022-08-06 19:17:00 98 /min [facility]ial blood by [place] [employer] [facility] Pulse oximetry Branch Systolic blood 2022-07-10 15:00:00 181 mm[Hg] [facility] Diastolic blood 2022-07-10 15:00:00 72 mm[Hg] Unive rsity [facility] Heart rate 2022-07-10 15:00:00 50 /min [facility] Body height 2022-07-10 14:56:00 160 cm [facility] Body weight 2022-07-10 14:56:00 84.369 kg [facility] BMI 2022-07-10 14:56:00 32.95 kg/m2 [facility] Oxygen saturation in 2022-07-10 14:56:00 95 /min University of Arterial blood by [employer] marg[facility]ita Pulse oximetry Branch Systolic blood 2022-06-10 15:00:00 109 mm[Hg] [facility] Diastolic blood 2022-06-10 15:00:00 51 mm[Hg] [facility] Heart rate 2022-06-10 15:00:00 51 /min [facility] Body height 2022-06-10 15:00:00 160 cm [facility] Body weight 2022-06-10 15:00:00 81.194 kg [facility] BMI 2022-06-10 15:00:00 31.71 kg/m2 [facility] Oxygen saturation in 2022-06-10 15:00:00 96 /min [facility] Arterial blood by [facility] Pulse oximetry Branch Systolic blood 2022-05-21 15:05:00 83 mm[Hg] [facility] Diastolic blood 2022-05-21 15:05:00 40 mm[Hg] Unive rs[facility] Heart rate 2022-05-21 15:05:00 55 /min [facility] Oxygen saturation in 2022-05-21 15:05:00 97 /min [facility] Arterial blood by [facility] Pulse oximetry Branch Body temperature 2022-05-21 15:02:00 36.33 Nae [facility] Respiratory rate 2022-05-21 15:02:00 16 /min [facility] Body weight 2022-05-21 15:02:00 80.65 kg [facility] BMI 2022-05-21 15:02:00 31.50 kg/m2 [facility] Systolic blood 2022-02-04 14:10:00 138 mm[Hg] [facility] Diastolic blood 2022-02-04 14:10:00 82 mm[Hg] [facility] Heart rate 2022-02-04 14:10:00 44 /min [facility] Respiratory rate 2022-02-04 14:10:00 17 /min [facility] Body height 2022-02-04 14:10:00 160 cm [facility] Body weight 2022-02-04 14:10:00 84.454 kg [facility] BMI 2022-02-04 14:10:00 32.98 kg/m2 [facility] Oxygen saturation in 2022-02-04 14:10:00 95 /min University Arterial blood by [facility] Pulse oximetry Branch height 2021-08-28 09:40:00 64.25 [in_i] Common [facility] weight 2021-08-28 09:40:00 187.2 [lb_av] Common [facility] temperature 2021-08-28 09:40:00 97.1 [degF] Common [facility] bmi 2021-08-28 09:40:00 31.88 kg/m2 [facility] oximetry 2021-08-28 09:40:00 98 % Common [facility] respiratory rate 2021-08-28 09:40:00 16 /min Comm on [facility] blood pressure 2021-08-28 09:40:00 132 mm[Hg] Common [facility] - systolic [facility] blood pressure 2021-08-28 09:40:00 74 mm[Hg] Common [facility] - diastolic [facility] height 2021-07-31 10:40:00 64.25 [in_i] Common [facility] weight 2021-07-31 10:40:00 187.0 [lb_av] [facility] temperature 2021-07-31 10:40:00 98.1 [degF] Common [facility] bmi 2021-07-31 10:40:00 31.85 kg/m2 [facility] oximetry 2021-07-31 10:40:00 99 % Common [facility] respiratory rate 2021-07-31 10:40:00 18 /min Comm on [facility] blood pressure 2021-07-31 10:40:00 128 mm[Hg] Common [facility] - systolic [facility] blood pressure 2021-07-31 10:40:00 72 mm[Hg] [facility] - diastolic [facility] Center Procedures Procedure Date / Time Performing Clinician Source Performed [place] TIME OR 2022-08-20 14:00:00 Yamini Dunn [facility] (NON-REPORTABLE) Medical Branch POCT GLUCOSE (AUTOMATED) 2022-08-20 11:49:00 Rena Rodriguez [facility] Medical Branch [facility] PATIENT FINANCIAL 2022-08-06 18:35:31 Doctor Lorenaigned, [facility] POLICY [place] [facility] DISCLOSURE AND CONSENT, 2022-08-06 06:01:00 Doctor Jad [facility] MEDICAL AND SURGICAL [place] [facility] nc PROCEDURES BI US GUIDED CORE BREAST 2022-07-30 17:14:37 Tomasa Villarreal [facility] BIOPSY LEFT Medical Branch BI LUCIO BASINS LEFT 2022-07-16 15:32:22 Obey Campo [facility] [place] Medical Branch BI ULTRASOUND BREAST 2022-07-16 15:31:02 Obey Campo [facility] COMPLETE LEFT [place] [facility] BI DIAGNOSTIC 2022-07-16 14:40:09 Requisition, Paper [facility] TOMOSYNTHESIS BILATERAL Medical Branch INSURANCE CORRESPONDENCE 2022-06-05 06:01:[address] [facility] [place] [facility] ASSIGNMENT OF BENEFITS 2022-05-21 14:51:[address] [facility] [place] [facility] MEDICAL RELEASE/CLEARANCE 2022-05-15 06:01:[address] [facility] FORMS [place] [facility] MEDICAL RELEASE/CLEARANCE 2022-04-18 06:01:[address] [facility] FORMS [place] [facility] MR BRAIN WO CONTRAST 2022-02-06 16:06:43 Marty Wang [facility] Medical [place] Plan of Care Planned Activity Planned Date Details Comments Source Future Scheduled 2029-03-01 Screening for malignant [facility] Test 00:00:00 neoplasm of colon Medical Ce nter (procedure) [code = 295835755] Future Scheduled 2029-03-01 Screening for malignant [facility] Test 00:00:00 neoplasm of colon Medical Ce nter (procedure) [code = 533097123] Future Scheduled 2022-06-[address] [facility] Test 00:00:00 (12+) [code = Medical Center DEPRESSION SCREENING (12+)] Future Scheduled 2022-02-07 INFLUENZA VACCINE (#1) [facility] 00:00:00 [code = INFLUENZA Medical Ce nter VACCINE (#1)] Future Scheduled 2020-11-[address] [facility] Test 00:00:00 Counseling and Medical Cente r Screening (12+) [code = Tobacco Cessation Counseling and Screening (12+)] Future Scheduled 2010 SHINGLES VACCINES ([address] [facility] Test 00:00:00 2) [code = SHINGLES Medical Center VACCINES (1 of 2)] Future Scheduled 2005 Lipid panel (procedure) [facility] Test 00:00:00 [code = 08178003] Medical Ce nter Future Scheduled 1981 Screening for malignant [facility] Test 00:00:00 neoplasm of cervix Medical C enter (procedure) [code = 455946381] Future Scheduled 1979 DTAP/TDAP/TD VACCINES [facility] 00:00:00 (1 - Tdap) [code = Medical C enter DTAP/TDAP/TD VACCINES (1 - Tdap)] Future Scheduled 1978 HEPATITIS C SCREENING [facility] 00:00:00 [code = HEPATITIS C Medical Center SCREENING] Future Scheduled 1960 COVID-19 VACCINE (#1) [facility] 00:00:00 [code = COVID-[address] VACCINE (#1)] Future Scheduled 1960 Screening for malignant [facility] Test 00:00:00 neoplasm of breast Medical C enter (procedure) [code = 131223054] Future Scheduled 1960 CT Colonography (combo) [facility] Test 00:00:00 [code = CT Colonography [facility] (combo)] Future Scheduled 1960 Screening for malignant [facility] Test 00:00:00 neoplasm of colon Medical Ce nter (procedure) [code = 058185534] Future Scheduled 1960 Screening for malignant [facility] Test 00:00:00 neoplasm of colon Medical Ce nter (procedure) [code = 039373577] Future Scheduled 1960 Sigmoidoscopy [code = CH I [facility] Test 00:00:00 Sigmoidoscopy] Medical Melly bowens Encounters Start End Encounter Admission Attending Care Care Encounter Source Date/Time Date/Time Type Type Clinicians Facility Department ID 2021-07-[address] [facility] [id number] Common 10:40:01 [facility] 2021-07-[address] [facility] [id number] Common 07:28:00 [facility] 2021-07-[address] [facility] [id number] Common 14:49:00 [facility] 2021-04-10 [id number] Univers 07:02:02 [facility] 2021-04-09 [facility] [id number] Univers 23:32:22 [facility] 2022-08-21 2022-08-21 Outpatient MELLY MCCARTNEY [facility] [id number] Univers 00:00:00 00:00:00 [facility] 2022-08-20 2022-08-20 [facility] LEO [id number] Univers 06:30:00 11:40:00 RENA airam [facility] 2022-08-20 2022-08-20 [facility] [id number] Univers 06:30:00 11:40:00 Encounter Rena LOONEY [id number] [facility] [id number] [id number] Med [place] [address] Branch 2022-08-19 2022-08-19 Out[facility] [id number] Univers 11:20:00 11:20:00 RUFINO lbackburn o f [facility] 2022-08-08 2022-08-08 Telephone [facility] [id number] Univers 00:00:00 00:00:00 Rena Naylor [facility] [id number] it [id number] - [id number] [facility] 419 Branch 2022-08-06 2022-08-06 [facility] [id number] Univers 16:00:00 16:00:00 RENA [facility] 2022-08-06 2022-08-06 Outpatient R [facility] [id number] Univers 13:00:00 14:17:16 RENA [facility] 2022-08-06 2022-08-06 Office [facility] [id number] Univers 13:00:00 14:17:16 Visit Rena Naylor [place] [id number] i [place] [facility] [id number] Vt dical [facility] [address] Branch [facility] 2022-08-06 2022-08-06 Orders Doctor LEATHA [id number] Univers 00:00:00 00:00:00 Only Unassigned, SEBASTIAN 350.1.13.10 ity of [place] [facility] 4.2.7.2.686 [place] [id number] [facility] [address] [place] 2022-08-05 2022-08-05 LEATHA Garcia [id number] Univers 00:00:00 00:00:00 Management Arline CORTES 350.1.13.10 ity of HOSPITAL 4.2.7.2.686 [place] [id number] [facility] 010 Branch 2022-07-31 2022-07-[address] [facility] [id number] Univers 07:36:48 23:59:00 ity of [facility] 2022-07-31 2022-07-31 [facility] [id number] Univers 07:36:48 23:59:00 Encounter Corry LOONEY 350.1.13.10 it[place] [id number] [facility] 807 Branch 2022-07-30 2022-07-30 Outpatient R RADIOLOGY [facility] [id number] Univers 09:25:28 23:59:00 ity of [facility] 2022-07-30 2022-07-30 [facility] Radiology [facility] 1.2.840.114 [id number] Univers 09:25:28 23:59:00 Encounter [place] 350.1.13.10 [place] [id number] [facility] 8[address] [place] 2022-07-16 2022-07-16 [facility] [id number] Univers 09:12:06 23:59:00 Encounter AURE [place] 350.1.13.10 ity of [place] 4.2.7.2.686 [place] CAMPUS [id number] [facility] 8[address] [place] 2022-07-16 2022-07-16 [facility] [id number] Univers 08:47:40 09:11:00 Encounter A[place] 350.1.13.10 ity of [place] 4.2.7.2.686 [place] CAMPUS [id number] [facility] 8[address] [place] 2022-07-16 2022-07-16 Outpatient R RADIOLOGY [facility] RAD [id number] Univers 07:41:11 08:46:00 ity of [facility] 2022-07-16 2022-07-16 [facility] Radiology [facility] [id number] Univers 07:41:11 08:46:00 Encounter [place] 350.1.13.10 [place] [id number] [facility] 800 Branch 2022-07-16 2022-07-16 [facility]phone [facility] [id number] Univers 00:00:00 00:00:00 Josette L BREANNATON 350.1.13.10 i ty [place] [id number] Vt dical NAL 059 [facility] 2022-07-10 2022-07-10 Crystal Fin[place] 2, Adc Lab [facility] [id number] Univers 09:45:00 10:00:00 Visit Neva Josette LOONEY 350.1.13.10 ity of [place] [id number] Vt dical NAL 353 [facility] 2022-07-10 2022-07-10 Outpatient [facility] [id number] Univers 08:40:00 09:26:15 JOSETTE blackburn [facility] 2022-07-10 2022-07-10 Office [facility] [id number] Univers 08:40:00 09:26:15 Visit Josette LOONEY 350.1.13.10 i ty of [facility] 4.2.7.2.[place] [id number] Vt dicnh NAL [address] [place] [address] 2022-07-10 2022-07-10 [facility]phone [facility] [id number] Univers 00:00:00 00:00:00 Josette CARLOSALISON 350.1.13.10 i ty [place] [id number] Vt dical NAL 9 [facility] 2022-06-14 2022-06-14 Outpatient R SANCHO [facility] [id number] Univers 10:35:26 23:59:00 RUFINO itairam o f [facility] 2022-06-10 2022-06-10 Office [facility] [id number] Univers 09:20:00 10:00:00 Visit Josette CARLOSALISON 350.1.13.10 i ty of [place] [id number] Vt dical NAL 9 [facility] 2022-06-10 2022-06-10 Outpatient R [facility] [id number] Univers 09:20:00 09:20:00 JOSETTE blackburn [facility] 2022-06-10 2022-06-10 [place] 2, Adc Lab [facility] [id number] Univers 08:00:00 08:15:00 Visit Josette [place] 350.1.13.10 [place] [id number] Vt dical NAL 353 [facility] 2022-06-10 2022-06-10 Telephone [facility] [id number] Univers 00:00:00 00:00:00 Rufino LOONEY 350.1.13.10 ity of [facility] 4.2.7.2.[place] [id number] Vt dical NAL 059 [facility] 2022-06-05 2022-06-05 Orders Doctor LEATHA 1.2.840.114 [id number] Univers 00:00:00 00:00:00 Only Unassigned, SEBASTIAN 350.1.13.10 ity of [place] [facility] 4.2.7.2.686 [place] [id number] [address] 2022-06-04 2022-06-04 Outpatient R NEVA [facility] [id number] Univers 10:40:00 10:40:00 JOSETTE ity [facility] 2022-05-22 2022-05-22 Telephone [facility] [id number] Univers 00:00:00 00:00:00 Rufino LOONEY 350.1.13.10 [place] [id number] Vt dical NAL 059 [facility] 2022-05-21 2022-05-21 [place] 2, Adc Lab [facility] 1.2.840.114 [id number] Univers 09:45:00 10:00:00 Visit Sancho Rufino LOONEY 350.1.13.10 ity of [facility] [place] [phone] Vt dical NAL 353 [facility] 2022-05-21 2022-05-21 Outpatient R [facility] [id number] Univers 09:20:00 09:21:33 JESSICAYVROSE soliz cheryl [facility] 2022-05-21 2022-05-21 Office [facility] 1.2.840.114 [id number] Univers 09:20:00 09:21:33 Visit Rufino LOONEY 350.1.13.10 ity of [place] [phone] Vt dic[address] 2022-05-21 2022-05-21 Outpatient R [facility] [id number] Univers 09:20:00 09:20:00 JANEGIUSEPPE soliz cheryl [facility] 2022-05-21 2022-05-21 Orders Doctor LEATHA 1.2.840.114 [id number] Univers 00:00:00 00:00:00 Only Unassigned, SEBASTIAN 350.1.13.10 ity of [place] 4.2.7.2.686 Catalino as [phone] [address] 2022-05-15 2022-05-15 Telephone [facility] 1.2.577.194 [id number] [facility] 00:00:00 00:00:00 Rufino LOONEY 350.1.13.10 ity of [place] [phone] Vt dical NAL 9 [facility] 2022-05-15 2022-05-15 Orders Doctor LEATHA 1.2.840.114 [id number] Univers 00:00:00 00:00:00 Only Unassigned, SEBASTIAN 350.1.13.10 ity of [place] [facility] 4.2.7.2.686 [place] as [phone] [address] 2022-04-18 2022-04-18 Orders Doctor LEATHA 1.2.840.114 [id number] Univers 00:00:00 00:00:00 Only Unassigned, SEBASTIAN 350.1.13.10 ity of [place] [facility] 4.2.7.2.686 [place] as [phone] [address] 2022-04-17 2022-04-17 Telephone [facility] 1.2.053.612 [id number] Univers 00:00:00 00:00:00 Rufino LOONEY 350.1.13.10 ity of [facility] [place].2.[place] [phone] Vt dical NAL 059 [facility] 2022-02-16 2022-02-16 Refill [facility] 1.2.840.114 [id number] Univers 00:00:00 00:00:00 Rufino LOONEY 350.1.13.10 it[place] of [place] [phone] Vt dicnh NAL 059 [facility] 2022-02-06 2022-02-06 Outpatient R MARTY WANG [facility] [id number] Univers 10:13:48 23:59:00 MARTY WANG ity [facility] 2022-02-06 2022-02-06 [facility] 1.2.287.430 [id number] Univers 10:13:48 23:59:00 Encounter Marty LOONEY 350.1.13.10 it[place].7.2.[place] [id number] [facility] [address] [place] [address] 2022-02-06 2022-02-06 Outpatient R MARTY WANG [facility] [id number] Univers 00:00:00 00:00:00 MARTY WANG ity [facility] 2022-02-04 2022-02-04 Outpatient R ISSA HAN [facility] [id number] Univers 09:00:00 09:54:21 ISSA HAN i ty of [facility] 2022-02-04 2022-02-04 Office Rhonda [facility] 1.2.840.114 [id number] Univers 09:00:00 09:54:21 Visit Issa LOONEY 350.1.13.10 i [place] [phone] [facility] NAL 085 [facility] 2022-02-04 2022-02-04 Outpatient R ISSA AHN [facility] 10 [id number] Univers 09:00:00 09:00:00 ISSA HAN i ty [facility] 2022-01-25 2022-01-25 Outpatient R MARTY WANG [facility] [id number] Univers 09:20:00 10:03:51 FRANCIAMARTY MIRELES itairam [facility] 2022-01-25 2022-01-25 Office Francia [facility] 1.2.840.114 [id number] Univers 09:20:00 10:03:[address] [facility] 350.1.13.10 ity of [place] 4.2.7.2.686 Catalino as GRAHAM?BLEA [phone] [facility] [address] [place] MEDICAL OFF[facility] 2022-01-11 2022-01-11 Documentat Andres [facility] [id number] [facility] 00:00:00 00:00:00 [facility] 2021-12-25 2021-12-25 Orders Doctor LEATHA 1.2.840.114 [id number] Univers 00:00:00 00:00:00 Only Unassigned, SEBASTIAN 350.1.13.10 ity of [place] [facility] 4.2.7.2.686 [place] as [phone] [address] 2021-12-19 2021-12-19 Telephone [facility] 1.2.329.635 [id number] Univers 00:00:00 00:00:00 Rufino LOONEY 350.1.13.10 it[place] of [place] [phone] [facility] 059 [facility] 2021-12-19 2021-12-19 Orders Doctor LEATHA 1.2.840.114 [id number] Univers 00:00:00 00:00:00 Only Unassigned, SEBASTIAN 350.1.13.10 ity of [place] [facility] 4.2.7.2.686 [place] as [phone] [address] 2021-12-14 2021-12-14 Telephone Andres [facility] [id number] 00:00:00 00:00:00 [facility] 2021-12-11 2021-12-11 Hospital Radiology [facility] 1.2.840.114 [id number] Univers 10:22:13 23:59:00 Encounter [place] 350.1.13.10 ity of [facility] 4.2.7.2.686 [facility] [id number] [facility] [address] 2021-12-11 2021-12-11 Crystal Finisher Darling, Jamila Lab Main [facility] 1.2.8 40.114 [id number] Univers 14:00:00 14:15:00 Visit Melly Alexandre [place] 350.1.13.10 ity of [facility] 4.2.7.2.[address] [facility] PROFESSIO [phone] Vt dical [facility] 353 [facility] 2021-12-11 2021-12-11 Outpatient R MELLY ALEXANDRE [facility] [id number] Univers 14:00:00 14:00:00 ity of [facility] 2021-12-11 2021-12-11 [facility] Radiology [facility] 1.2.840.114 [id number] Univers 10:21:13 10:21:13 Encounter [place] 350.1.13.10 ity of [facility] 4.2.7.2.686 [facility] [id number] [facility] [address] 2021-12-11 2021-12-11 Outpatient R RADIOLOGY [facility] [id number] Univers 10:20:11 10:20:11 ity of [facility] 2021-12-11 2021-12-11 Hospital Radiology [facility] 1.2.840.114 [id number] Univers 10:20:11 10:20:11 Encounter [place] 350.1.13.10 ity of [place] 4.2.7.2.686 [facility] [id number] [facility] [address] 2021-12-04 2021-12-04 Outpatient R RADIOLOGY [facility] [id number] Univers 00:00:00 00:00:00 ity of [facility] 2021-11-28 2021-11-28 Orders Doctor ZHANG 1.2.840.114 [id number] Univers 00:00:00 00:00:00 Only Unassigned, SEBASTIAN 350.1.13.10 ity of [place] [facility] 4.2.7.2.686 Catal[place] as [phone] [address] 2021-11-20 2021-11-20 Patient [facility] 1.2.840.114 [id number] Univers 00:00:00 00:00:00 Secure Msg Rufino LOONEY 350.1.13.10 ity of [facility] [place].2.[place] [phone] Vt dical NAL 059 [facility] 2021-11-19 2021-11-19 Crystal Finisher 2, Adc Lab [facility] 1.2.840.114 [id number] Univers 10:00:00 10:15:00 Visit Rufino Stein 350.1.13.10 ity of [facility] [place] [phone] Vt dical NAL 353 [facility] 2021-11-19 2021-11-19 Outpatient R [facility] [id number] [facility] 09:00:00 09:20:39 RUFINO weinsteiny o f [facility] 2021-11-19 2021-11-19 Office [facility] 1.2.840.114 [id number] [facility] 09:00:00 09:20:39 Visit Rufino LOONEY 350.1.13.10 ity of [place] 4.2.7.2.[place] [phone] Vt dical NAL 9 [facility] 2021-11-19 2021-11-19 Outpatient R [facility] [id number] Univers 09:00:00 09:00:00 RUFINO ity o f [facility] 2021-11-09 2021-11-09 Telephone [facility] 1.2.340.097 [id number] Univers 00:00:00 00:00:00 Rufino LOONEY 350.1.13.10 ity of [place].2.[place] [phone] Vt dical NAL 059 [facility] 2021-11-09 2021-11-09 Orders Doctor ZHANG 1.2.840.114 [id number] 00:00:00 00:00:00 Only Unassigned, SEBASTIAN 350.1.13.[address] [facility] 4.2.7.2.686 [facility] [phone] [facility] [address] 2021-10-31 2021-10-31 (TEL) STLMLC STLMLC [id number] Co mmon 00:00:00 00:00:00 [facility] 2021-10-25 2021-10-25 (TEL) STLMLC STLMLC [id number] Co mmon 00:00:00 00:00:00 [facility] 2021-10-24 2021-10-24 (TEL) STLMLC STLMLC [id number] Co mmon 00:00:00 00:00:00 [facility] 2021-10-22 2021-10-22 (TEL) STLMLC STLMLC [id number] Co mmon 00:00:00 00:00:00 [facility] 2021-10-16 2021-10-16 (TEL) STLMLC STLMLC [id number] Co mmon 00:00:00 00:00:00 [facility] 2021-10-10 2021-10-10 [id number] Univers 08:21:24 23:59:00 ity of [facility] 2021-10-10 2021-10-10 [facility] 1.2.840.114 [id number] Univers 08:21:24 23:59:00 Encounter Corry LOONEY 350.1.13.10 ity [facility] 4.2.7.2.686 [facility] [id number] [facility] [address] 2021-08-28 2021-08-28 OFFICE STLMLC STLMLC [id number] Co mmon 00:00:00 00:00:00 VISIT [facility] LEVEL 4 [facility] 2021-08-22 2021-08-22 Outpatient R SANCHO [facility] [id number] Univers 10:51:15 23:59:00 RUFINO luna [facility] 2021-08-22 2021-08-22 Outpatient R SANCHO, [facility] [id number] Univers 11:00:00 11:00:00 RUFINO luna [facility] 2021-08-20 2021-08-20 (TEL) STLMLC STLMLC [id number] Co mmon 00:00:00 00:00:00 [facility] 2021-08-16 2021-08-16 Office Sancho, [facility] 1.2.840.114 [id number] Univers 09:00:00 09:27:08 Visit Janegiuseppe AURE 350.1.13.10 ity of [facility] 4.2.7.2.686 [place] [phone] [facility] 059 [facility] 2021-08-16 2021-08-16 Outpatient R SANCHO, [facility] [id number] Univers 09:00:00 09:27:08 RUFINO soliz [facility] 2021-08-16 2021-08-16 Outpatient R SANCHO, [facility] [id number] Univers 09:00:00 09:00:00 RUFINO soliz [facility] 2021-08-06 2021-08-06 [facility] [id number] Univers 07:45:40 23:59:00 ity of [facility] 2021-08-06 2021-08-06 [facility] 1.2.840.114 [id number] Univers 07:45:40 23:59:00 Encounter M [place] 350.1.13.10 ity of [place].2.7.2.686 [place] [id number] [facility] [address] 2021-08-02 2021-08-02 Outpatient R RADIOLOGY [facility] RAD [id number] Univers 08:31:56 23:59:00 ity of [facility] 2021-08-02 2021-08-02 Hospital Radiology [facility] 1.2.840.114 [id number] Univers 08:31:56 23:59:00 Encounter [place] 350.1.13.10 ity of [place] 4.2.7.2.686 [place] [id number] [facility] [address] 2021-07-31 2021-07-31 [facility] [id number] Co mmon 00:00:00 00:00:00 VISIT NEW Smooth it PT LEVEL 4 - [facility] 2021-07-11 2021-07-11 JAMIE BuckleyIT 1.2.840.114 [id number] Univers 00:00:00 00:00:00 Alice Flanagan HEALTH 350.1.13.10 ity of [facility] 4.2.7.2.[place] [id number] [facility] [address] 2021-05-31 2021-05-31 Outpatient R MELLY ALEXANDRE [facility] [id number] Univers 00:00:00 00:00:00 ity [facility] 2021-05-11 2021-05-11 Outpatient OHDEREK [facility] [id number] [facility] 07:[facility] 07:31:00 [id number] da [facility] 2021-04-16 2021-04-16 Outpatient R JANET [facility] [id number] Univers 13:30:00 13:30:00 REYNALDO blackburn [facility] 2021-04-16 2021-04-16 Office Andrew Andrade [facility] 1.2.840.114 [id number] Univers 12:59:31 13:14:31 Visit Reynaldo Gonzales iFollo 350.1.13.10 ity [facility] 4.2.7.2.686 [place] as GRAHAM?BLEA [phone] [address] MEDICAL OFFICE [facility] 2021-04-03 2021-04-03 [facility]phone [facility] 1.2.840.114 [id number] Univers 00:00:00 00:00:00 Reynaldo [facility] 350.1.13.10 it y of [place] 4.2.7.2.686 [place] as Graham?Blea [phone] [address] Medical Office Building 2021-04-02 2021-04-02 [facility] 1.2.840.114 [id number] Univers 07:25:00 10:58:00 Encounter Reynaldo Looney 350.1.13.10 ity of [place].2.[place] Surgical [phone] [facility] [address] 2021-04-02 2021-04-02 Surgery Janet [facility] 1.2.053.801 [id number] Univers 09:30:00 10:37:00 Reynaldo Looney 350.1.13.10 i ty of [place].2.[place] Surgical [id number] [facility] [address] 2021-04-02 2021-04-02 Telephone Jante [facility] 1.2.840.114 [id number] Univers 00:00:00 00:00:00 Reynaldo Looney 350.1.13.10 i ty of [place].2.[place] Profess[place] [id number] Vt dical nal 198 [facility] 2021-03-30 2021-03-30 Laboratory Only, Adc Test [facility] 1.2.840. 114 [id number] Univers 08:17:57 08:32:57 Only Reynaldo Gonzales Katherine Aure 350.1.13.10 ity of [place] 4.2.7.2.686 [place] [id number] [facility] [address] [place] 2021-03-30 2021-03-30 Crystal Finisher Darling, Adc Lab Main [facility] 1.2.8 40.114 [id number] Univers 08:17:42 08:32:42 Visit Reynaldo Gonzales 350.1.13.10 ity of [place].2.[place] [id number] Vt dical nal 353 [facility] 2021-03-30 2021-03-30 Out[facility] [id number] Univers 08:30:00 08:30:00 REYNALDO ity of [facility] 2021-03-30 2021-03-30 Orders Doctor ZHANG 1.2.840.114 [id number] Univers 00:00:00 00:00:00 Only Unassigned, SEBASTIAN 350.1.13.10 ity of [place] [facility] 4.2.7.2.686 [place] as [phone] [facility] [address] [place] 2021-03-20 2021-03-20 [facility] 1.2.840.114 [id number] Univers 00:00:00 00:00:00 Surgery Reynaldo [facility] 350.1.13.10 it y of [place] 4.2.7.2.686 [place] Graham?Blea [phone] [address] Medical Office [facility] 2021-03-19 2021-03-19 Office Andrew Andrade [facility] 1.2.840.114 [id number] Univers 13:20:33 13:53:22 Visit Reynaldo Gonzales 350.1.13.10 ity of [place] 4.2.7.2.686 [place] as Graham?Blea [phone] [address] Medical Office [facility] 2021-03-19 2021-03-19 Outpatient [facility] [id number] Univers 13:30:00 13:30:00 REYNALDO ity of [facility] 2021-03-12 2021-03-12 Refpreston Row[facility] 1.2.840.114 [id number] Univers 00:00:00 00:00:00 Alice Flanagan HEALTH 350.1.13.10 ity of [facility] 4.2.7.2.686 [place] [id number] [facility] [address] 2021-03-05 2021-03-05 [facility] 1.2.280.432 [id number] Univers 09:35:00 10:43:00 Reynaldo Looney 350.1.13.10 i ty of [place] 4.2.7.2.[place] [id number] [facility] [address] 2021-03-05 2021-03-05 [facility] 1.2.840.114 [id number] Univers 07:59:00 10:12:00 Encounter Reynaldo Looney 350.1.13.10 ity of [place] 4.[place].2.[place] [phone] [facility] [address] 2021-03-05 2021-03-05 Orders Doctor LEATHA 1.2.840.114 [id number] Univers 00:00:00 00:00:00 Only Unassigned, SEBASTIAN 350.1.13.10 ity of [place] [facility] 4.2.7.2.686 [place] as [phone] [facility] [address] 2021-03-02 2021-03-02 Hospital [facility] 1.2.840.114 [id number] Univers 09:30:23 23:59:00 Encounter Reynaldo [place] 350.1.13.10 ity of [place].2.[place] [id number] [facility] [address] 2021-03-02 2021-03-02 Laboratory Only, Adc Test [facility] 1.2.840. 114 [id number] Univers 09:31:46 09:46:46 Only Reynaldo Gonzales 350.1.13.10 ity of [place] 4[place].2.[place] [id number] [facility] [address] 2021-03-02 2021-03-02 Crystal Finisher Darling, Adc Lab Main [facility] 1.2.8 40.114 [id number] Univers 09:31:08 09:46:08 Visit GonzalesReynaldo landa 350.1.13.10 ity of [place].2.[place] [phone] Vt [facility]icsaint [facility]ons[facility] [address] [facility] 2021-03-02 2021-03-02 Outpatient [facility] [id number] Univers 09:45:00 09:45:00 REYNALDO ity of [facility] 2021-03-02 2021-03-02 Hospital [facility] 1.2.840.114 [id number] Univers 09:29:33 09:29:33 Encounter Reynaldo [place]oney 350.1.13.10 ity of [place] 4.[place].2.[place] [id number] [facility] [address] 2021-03-01 2021-03-01 Telephone Janet [facility] 1.2.840.114 [id number] Univers 00:00:00 00:00:00 Reynaldo [facility] 350.1.13.10 it y of [place] 4.2.7.2.686 [place] Graham?Blea [phone] Vt antonio morataya 198 [facility] Office [facility] 2021-02-22 2021-02-22 Office [facility] 1.2.812.681 [id number] Univers 07:59:13 09:05:03 Visit Reynaldo [facility] 350.1.13.10 it y of [place] 4.2.7.2.686 [place] Graham?Blea [phone] Vt antonio morataya 198 [facility] Office [facility] 2021-02-22 2021-02-22 Outpatient [facility] [id number] Univers 08:15:00 08:15:00 REYNALDO [facility] 2021-02-22 2021-02-22 Prep [facility] 1.2.840.114 [id number] Univers 00:00:00 00:00:00 Surgery Reynaldo [facility] 350.1.13.10 it y of [place] 4.2.7.2.686 [place] as Graham?Blea [phone] Vt antonio morataya 198 [facility] Office [facility] 2021-02-20 2021-02-20 Outpatient Garry ANDRADE [facility] [id number] Univers 08:00:00 08:00:00 ANDREW airam [facility] 2021-02-05 2021-02-05 Office [facility] 1.2.840.114 [id number] Univers 10:33:14 11:31:42 Visit Marty Calle [facility] 350.1.13.10 ity of [place] 4.2.7.2.686 [place] as Graham?Blea [phone] Vt antonio morataya 092 [facility] Office [facility] 2021-02-05 2021-02-05 Outpatient MARTY OSORIO [facility] [id number] Univers 10:40:00 10:40:00 MARTY WANG [facility] 2021-01-09 2021-01-09 Outpatient HARPER SALEEM [id number] [place] 09:24:00 09:24:00 [id number] [facility] 2021-01-08 2021-01-08 Outpatient MEHOP [facility] [id number]- [place] 08:56:00 08:56:00 [id number] [facility] 2020-12-18 2020-12-18 Outpatient MEHOP [facility] [id number]- [place] 02:47:00 02:47:00 [id number] [facility] 2020-12-08 2020-12-08 Outpatient MEHOP [facility] [id number]- [place] 08:49:00 08:49:00 [id number] [facility] 2020-03-29 2020-03-29 [facility] [id number] Univers 14:30:00 14:30:00 JOSY [facility] 2020-03-15 2020-03-15 Outpatient R JOSY [facility] [id number] Univers 10:00:00 10:00:00 TONIHANSAJAYLYN [facility] 2020-02-24 2020-02-24 Outpatient R JAE [facility] [id number] Univers 13:00:00 13:00:00 ALICE [facility] 2019-11-24 2019-11-24 Outpatient R JOSY [facility] [id number] Univers 09:00:00 09:00:00 [facility] 2019-11-23 2019-11-23 Out[facility] [id number] 00:[facility] 00:00[facility]00 [facility] 2019-11-16 2019-11-16 Outpatient [facility] [id number] 00:[facility]00 00:00[facility]00 [facility] 2019-09-14 2019-09-14 [facility] [id number] 3[facility] 00:[facility]00 00:00:[id number] [facility] 2019-08-23 2019-08-23 [facility] [id number] [facility]2 [facility] 07:08:00 07:08:00 [id number] 2019-08-20 2019-08-20 Outpatient [facility] SL [id number] 3-2 [facility] 00:00:00 00:00:00 [id number] 2019-08-19 2019-08-19 Outpatient Garry ROWE [facility] [id number] Univers 13:30:00 13:30:00 ALICE [facility] 2019-08-18 2019-08-18 Outpatient JOVANNA KAUFMAN [facility] [id number] Univers 10:00:00 10:00:00 TONIJOVANNA CANTU [facility] 2019-02-17 2019-02-17 [facility] [id number] 3[facility] 13:30:24 17:12:[id number] [facility] 2018-07-08 2018-07-08 [facility] [id number] Common 13:04:00 13:04:00 [facility] [address] [facility] 2018-07-02 2018-07-02 Outpatient [facility] [id number] Common 10:00:00 10:00:00 t [facility] [address] [facility] 2018-06-18 2018-06-18 Outpatient [facility] [id number] Common 10:09:00 10:09:00 t [facility] [address] [facility] 2018-06-11 2018-06-11 Outpatient [facility] [id number] Common 16:51:00 16:51:00 t [facility] [address] [facility] 2018-05-18 2018-05-18 Outpatient [facility] [id number] Common 10:49:00 10:49:00 t [facility] [address] [facility] Results Test Description Test Time Test Comments Results Result Comments Source POCT GLUCOSE (AUTOMATED) 2022-08-20 11:50:08 Test Item Value Reference Range Interpretation Comme nts POCT GLU (test code = 1472959482) 102 mg/dL 70-110 Lab Interpretation (test code = 94116-2) Normal [facility] [id number] 16:00:00Surgical Pathology Report Case: [id number] Authorizing Provider: Kika Green Collected:08/23/2019 Ana7 MD JUAN PABLO Ordering Location: [facility] - Perioperative Received: 08/23/2019 1202 Services Pathologist: Garret Carnes DO Specimen: Stomach, GREATER CURVATURE STOMACH, GREATER CURVATURE, SLEEVE GASTRECTOMY:- STOMACH WALL WITHIN NORMAL LIMITS- NO HELICOBACTOR-LIKE ORGANISMS IDENTIFIED ON ROUTINE STAIN (H&E)- NEGATIVE FOR INTESTINAL METAPLASIA OR DYSPLASIA Signing Pathologist Direct Phone Line: [phone] signed by Garret Carnes DO on 08/24/2019 at 4:00 [id number] obesityProcedure- laparoscopic longitudinal sleeve gastrectomyStomach, greater curvatureThe instrument, containers, paperwork, and cassettes all read as [id number]. Received in formalin labeled withthe patient's name (Zia) and medical record number. A. Received in formalin labeled as "greater curvature" is an 18.0 x 6.0 x 3.5 cm segment of stomach. The serosal surface is [place]qu[place] and smooth andhas clamping artifact noted. There is a staple line which runs along the long axis of the specimen. Opening the specimen reveals grossly unremarkable mucosa which displays the usual folding pattern of the rugae. No discrete masses, polyps or ulcers are noted. Hat Trimmer sections are submitted in cassette A1-A2, JF/bc All histologic sections have been microscopically examined. The pertinent microscopic examination findings, along with the gross examination findings, have been incorporated into the diagnosis rendered above.POCT-GLUCOSE [id number] 14:01:00 Test Item Value Reference Range Interpretation Comments POC-GLUCOSE METER 95 mg/dL 70-110 : TESTED A T [facility] [address] (BEAKER) (test code = [facility], 1538) [place] [address] 384: [employer] Teacher/Techni yvan ID = [id number] for T Heather browne BASIC METABOLIC [id number] 06:15:00 Test Item Value Reference Range Interpretation Comments SODIUM (BEAKER) 139 meq/L 135-148 (test code = 381) POTASSIUM (BEAKER) 4.1 meq/L 3.5-5.5 (test code = 379) CHLORIDE (BEAKER) 103 meq/L 98-106 (test code = 382) CO2 (BEAKER) (test 26 meq/L 20-31 code = 355) BLOOD UREA NITROGEN 13 mg/dL 10-26 (BEAKER) (test code = 354) CREATININE (BEAKER) 0.84 mg/dL 0.50-1.20 (test code = 358) GLUCOSE RANDOM 117 mg/dL 70-110 H (BEAKER) (test code = 652) CALCIUM (BEAKER) 8.8 mg/dL 8.5-10.5 (test code = 697) EGFR (BEAKER) (test 69 mL/min/1.73 ESTIMA SARAH GFR IS code = 1092) sq m NOT ACCURATE CREATININE CLEARANCE IN PREDICTING GLOMERULAR FILTRATION RATE . ESTIMATED GFR I S NOT APPLICABLE FOR DIALYSIS PATIEN TS. [employer] Teacher ID - [id number] W/PLT COUNT & AUTO [id number] 05:44:00 Test Item Value Reference Range Interpretation Comments WHITE BLOOD CELL COUNT (BEAKER) 8.9 K/ L 4.0-10.0 (test code = 775) RED BLOOD CELL COUNT (BEAKER) 4.08 M/ L 4.00-5.00 (test code = 761) HEMOGLOBIN (BEAKER) (test code = 11.8 GM/DL 12.0-15.5 L 410) HEMATOCRIT (BEAKER) (test code = 35.7 % 36.0-46.0 L 411) MEAN CORPUSCULAR VOLUME (BEAKER) 87.5 fL 82.0-99.0 (test code = 753) MEAN CORPUSCULAR HEMOGLOBIN 28.9 pg 27.0-33.0 (BEAKER) (test code = 751) MEAN CORPUSCULAR HEMOGLOBIN CONC 33.1 GM/DL 32.0-36.0 (BEAKER) (test code = 752) RED CELL DISTRIBUTION WIDTH 14.4 % 12.0-15.0 (BEAKER) (test code = 412) PLATELET COUNT (BEAKER) (test 238 K/CU MM 150-430 code = 756) MEAN PLATELET VOLUME (BEAKER) 10.1 fL 6.0-11.5 (test code = 754) NUCLEATED RED BLOOD CELLS 0 /100 WBC 0-0 (BEAKER) (test code = 413) NEUTROPHILS RELATIVE PERCENT 77 % (BEAKER) (test code = 429) LYMPHOCYTES RELATIVE PERCENT 15 % (BEAKER) (test code = 430) MONOCYTES RELATIVE PERCENT 7 % (BEAKER) (test code = 431) EOSINOPHILS RELATIVE PERCENT 0 % (BEAKER) (test code = 432) BASOPHILS RELATIVE PERCENT 0 % (BEAKER) (test code = 437) NEUTROPHILS ABSOLUTE COUNT 6.91 K/ L 1.80-8.00 (BEAKER) (test code = 670) LYMPHOCYTES ABSOLUTE COUNT 1.31 K/ L 1.48-4.50 L (BEAKER) (test code = 414) MONOCYTES ABSOLUTE COUNT (BEAKER) 0.65 K/ L 0.00-1.30 (test code = 415) EOSINOPHILS ABSOLUTE COUNT 0.01 K/ L 0.00-0.50 (BEAKER) (test code = 416) BASOPHILS ABSOLUTE COUNT (BEAKER) 0.02 K/ L 0.00-0.20 (test code = 417) IMMATURE GRANULOCYTES-RELATIVE 0 % 0-0 PERCENT (BEAKER) (test code = 2801) POCT-GLUCOSE [id number] 05:00:00 Test Item Value Reference Range Interpretation Comments POC-GLUCOSE METER 113 mg/dL 70-110 H : TESTED A T [facility] [id number] (BEAKER) (test code [facility], = 1538) [place] [address] 384: [employer] Teacher/Techni yvan ID = [id number] for M Chris vanegas POCT-GLUCOSE [id number] 17:25:00 Test Item Value Reference Range Interpretation Comments POC-GLUCOSE METER 194 mg/dL 70-110 H : TESTED A T [facility] [id number] (BEAKER) (test code [facility], = 1538) [place] [address] 384: [employer] Teacher/Techni yvan ID = [id number] for A mukund, Candi POCT-GLUCOSE [id number] 11:15:00 Test Item Value Reference Range Interpretation Comments POC-GLUCOSE METER 145 mg/dL 70-110 H : TESTED A T [facility] [address] (BEAKER) (test code [facility], = 1538) [place] [address] 384: [employer] Teacher/Techni yvan ID = [id number] for S varinder, Jonna POCT-GLUCOSE [id number] 08:52:00 Test Item Value Reference Range Interpretation Comments POC-GLUCOSE METER 141 mg/dL 70-110 H : TESTED A T [facility] [address] (BEAKER) (test code [facility], = 1538) [facility] 77 384: [employer] Teacher/Techni yvan ID = [id number] for Brandi Barnes BASIC METABOLIC [id number] 08:41:00 Test Item Value Reference Range Interpretation Comments SODIUM (BEAKER) 141 meq/L 135-148 (test code = 381) POTASSIUM (BEAKER) 4.2 meq/L 3.5-5.5 (test code = 379) CHLORIDE (BEAKER) 102 meq/L 98-106 (test code = 382) CO2 (BEAKER) (test 31 meq/L 20-31 code = 355) BLOOD UREA NITROGEN 12 mg/dL 10-26 (BEAKER) (test code = 354) CREATININE (BEAKER) 0.96 mg/dL 0.50-1.20 (test code = 358) GLUCOSE RANDOM 95 mg/dL 70-110 (BEAKER) (test code = 652) CALCIUM (BEAKER) 9.5 mg/dL 8.5-10.5 (test code = 697) EGFR (BEAKER) (test 59 mL/min/1.73 ESTIMA SARAH GFR IS code = 1092) sq m NOT ACCURATE CREATININE CLEARANCE IN PREDICTING GLOMERULAR FILTRATION RATE . ESTIMATED GFR I S NOT APPLICABLE FOR DIALYSIS PATIEN TS. [employer] Teacher ID - [id number] 08:41:00 Test Item Value Reference Range Interpretation Comments ALBUMIN (BEAKER) (test code = 1145) 4.3 g/dL 3.5-5.0 [employer] Teacher ID - [id number] W/PLT COUNT & AUTO [id number] 08:17:00 Test Item Value Reference Range Interpretation Comments WHITE BLOOD CELL COUNT (BEAKER) 7.7 K/ L 4.0-10.0 (test code = 775) RED BLOOD CELL COUNT (BEAKER) 4.53 M/ L 4.00-5.00 (test code = 761) HEMOGLOBIN (BEAKER) (test code = 13.2 GM/DL 12.0-15.5 410) HEMATOCRIT (BEAKER) (test code = 38.9 % 36.0-46.0 411) MEAN CORPUSCULAR VOLUME (BEAKER) 85.9 fL 82.0-99.0 (test code = 753) MEAN CORPUSCULAR HEMOGLOBIN 29.1 pg 27.0-33.0 (BEAKER) (test code = 751) MEAN CORPUSCULAR HEMOGLOBIN CONC 33.9 GM/DL 32.0-36.0 (BEAKER) (test code = 752) RED CELL DISTRIBUTION WIDTH 14.1 % 12.0-15.0 (BEAKER) (test code = 412) PLATELET COUNT (BEAKER) (test 247 K/CU MM 150-430 code = 756) MEAN PLATELET VOLUME (BEAKER) 9.9 fL 6.0-11.5 (test code = 754) NUCLEATED RED BLOOD CELLS 0 /100 WBC 0-0 (BEAKER) (test code = 413) NEUTROPHILS RELATIVE PERCENT 59 % (BEAKER) (test code = 429) LYMPHOCYTES RELATIVE PERCENT 28 % (BEAKER) (test code = 430) MONOCYTES RELATIVE PERCENT 8 % (BEAKER) (test code = 431) EOSINOPHILS RELATIVE PERCENT 5 % (BEAKER) (test code = 432) BASOPHILS RELATIVE PERCENT 1 % (BEAKER) (test code = 437) NEUTROPHILS ABSOLUTE COUNT 4.56 K/ L 1.80-8.00 (BEAKER) (test code = 670) LYMPHOCYTES ABSOLUTE COUNT 2.14 K/ L 1.48-4.50 (BEAKER) (test code = 414) MONOCYTES ABSOLUTE COUNT (BEAKER) 0.59 K/ L 0.00-1.30 (test code = 415) EOSINOPHILS ABSOLUTE COUNT 0.37 K/ L 0.00-0.50 (BEAKER) (test code = 416) BASOPHILS ABSOLUTE COUNT (BEAKER) 0.05 K/ L 0.00-0.20 (test code = 417) IMMATURE GRANULOCYTES-RELATIVE 0 % 0-0 PERCENT (BEAKER) (test code = 2801) BASIC METABOLIC [id number] 10:18:00 Test Item Value Reference Range Interpretation Comments SODIUM (BEAKER) 138 meq/L 135-148 (test code = 381) POTASSIUM (BEAKER) 4.9 meq/L 3.5-5.5 (test code = 379) CHLORIDE (BEAKER) 100 meq/L 98-106 (test code = 382) CO2 (BEAKER) (test 29 meq/L 20-31 code = 355) BLOOD UREA NITROGEN 23 mg/dL 10-26 (BEAKER) (test code = 354) CREATININE (BEAKER) 1.16 mg/dL 0.50-1.20 (test code = 358) GLUCOSE RANDOM 164 mg/dL 70-110 H (BEAKER) (test code = 652) CALCIUM (BEAKER) 9.8 mg/dL 8.5-10.5 (test code = 697) EGFR (BEAKER) (test 48 mL/min/1.73 ESTIMA SARAH GFR IS code = 1092) sq m NOT ACCURATE CREATININE CLEARANCE IN PREDICTING GLOMERULAR FILTRATION RATE . ESTIMATED GFR I S NOT APPLICABLE FOR DIALYSIS PATIEN TS. [employer] Teacher ID - [id number] 10:18:00 Test Item Value Reference Range Interpretation Comments ALBUMIN (BEAKER) (test code = 1145) 4.4 g/dL 3.5-5.0 [employer] Teacher ID - [id number] W/PLT COUNT & AUTO [id number] 09:56:00 Test Item Value Reference Range Interpretation Comments WHITE BLOOD CELL COUNT 8.6 K/ L 4.0-10.0 (BEAKER) (test code = 775) RED BLOOD CELL COUNT 4.89 M/ L 4.00-5.00 (BEAKER) (test code = 761) HEMOGLOBIN (BEAKER) 14.1 GM/DL 12.0-15.5 (test code = 410) HEMATOCRIT (BEAKER) 42.2 % 36.0-46.0 (test code = 411) MEAN CORPUSCULAR VOLUME 86.3 fL 82.0-99.0 (BEAKER) (test code = 753) MEAN CORPUSCULAR 28.8 pg 27.0-33.0 HEMOGLOBIN (BEAKER) (test code = 751) MEAN CORPUSCULAR 33.4 GM/DL 32.0-36.0 HEMOGLOBIN CONC (BEAKER) (test code = 752) RED CELL DISTRIBUTION 13.3 % 12.0-15.0 WIDTH (BEAKER) (test code = 412) PLATELET COUNT (BEAKER) 298 K/CU MM 150-430 (test code = 756) MEAN PLATELET VOLUME 10.2 fL 6.0-11.5 MPV-Waldo roximately (BEAKER) (test code = 20% po sitive bias 754) due to method change. NUCLEATED RED BLOOD 0 /100 WBC 0-0 CELLS (BEAKER) (test code = 413) NEUTROPHILS RELATIVE 60 % PERCENT (BEAKER) (test code = 429) LYMPHOCYTES RELATIVE 26 % PERCENT (BEAKER) (test code = 430) MONOCYTES RELATIVE 8 % PERCENT (BEAKER) (test code = 431) EOSINOPHILS RELATIVE 4 % PERCENT (BEAKER) (test code = 432) BASOPHILS RELATIVE 1 % PERCENT (BEAKER) (test code = 437) NEUTROPHILS ABSOLUTE 5.15 K/ L 1.80-8.00 COUNT (BEAKER) (test code = 670) LYMPHOCYTES ABSOLUTE 2.23 K/ L 1.48-4.50 COUNT (BEAKER) (test code = 414) MONOCYTES ABSOLUTE 0.71 K/ L 0.00-1.30 COUNT (BEAKER) (test code = 415) EOSINOPHILS ABSOLUTE 0.38 K/ L 0.00-0.50 COUNT (BEAKER) (test code = 416) BASOPHILS ABSOLUTE 0.06 K/ L 0.00-0.20 COUNT (BEAKER) (test code = 417) IMMATURE 0 % 0-0 GRANULOCYTES-RELATIVE PERCENT (BEAKER) (test code = 1841)
[2022-08-20 20:26] LABS: Protime INR 1.29
[2022-08-20 20:28] LABS: Absolute Lymphocytes (CBC) 0.9 K/uL (0.7-4.9); Hematocrit 32.9 % (36.0-45.0); Lymphocytes % 8.2 % (15.3-44.8); MCV 82.4 fL (80-100); MPV 8.3 fL (7.6-11.3)
--- NOTE | 2022-08-20 20:36 | RAD REPORT ---
EXAM DESCRIPTION: CT - Head Brain Wo Cont - 08/20/2022 8:24 pm CLINICAL HISTORY: Headache COMPARISON: None TECHNIQUE: Computed axial tomography of the head was obtained. IV contrast was not requested. All CT scans are performed using dose optimization technique as appropriate and may include automated exposure control or mA/KV adjustment according to patient size. FINDINGS: An intracranial bleed is not seen The ventricles are normal in caliber No extra-axial fluid collection is noted. Mild low-density areas within periventricular, deep and subcortical white matter likely represent isc hemic changes secondary to small vessel disease. Fluid within the sinuses/ mastoids is not seen. IMPRESSION: No acute intracranial abnormality is seen If patient's symptoms persist MRI of the brain would be recommended
--- NOTE | 2022-08-20 20:37 | RAD REPORT ---
EXAM DESCRIPTION: Owen Single View08/20/2022 8:29 pm CLINICAL HISTORY: Chest pain COMPARISON: none FINDINGS: The lungs appear clear of acute infiltrate. The heart is mildly enlarged. Calcified hilar lymph nodes. Calcified lung granuloma. IMPRESSION: No acute abnormalities displayed
[2022-08-20 20:43] LABS: Albumin 3.8 g/dL (3.4-5.0); Bilirubin Direct 0.2 mg/dL (0-0.2); Bilirubin Total 0.7 mg/dL (0.2-1.0); Magnesium 1.9 mg/dL (1.6-2.4); Potassium 4.2 mmol/L (3.5-5.1); Protein, Total 6.4 g/dL (6.4-8.2); Troponin High Sensitivity 6.9 pg/mL (<58.9)
[2022-08-20] MEDS ORDERED: cloNIDine HCL 0.1 MG TAB ONE (20:43)
[2022-08-20] MEDS ORDERED: NA CHLORIDE 0.9% 50 ML ONE (20:46)
[2022-08-20] MEDS ORDERED: METOCLOPRAMIDE 10 MG/2mL INJ ONE (20:46)
[2022-08-20 21:41] LABS: Urine Blood Negative (Negative); Urine Glucose Negative (Negative); Urine Protein 2+ (Negative); Urine Specific Gravity >=1.030 (1.005-1.030)
[2022-08-20 21:58] LABS: Urine Bacteria <20 /HPF (<20); Urine Mucus Slight /HPF (None Seen)
[2022-08-20] MEDS ORDERED: ONDANSETRON 4 MG/2 ML VIAL ONE (22:31)
[2022-08-20] MEDS ORDERED: NA CHLORIDE 0.9% 250 ML ONE (22:32)
[2022-08-20] MEDS ORDERED: LORazepam 2 MG/ML VIAL ONE (23:04)
[2022-08-20] MEDS ORDERED: PROMETHAZINE INJ 25 MG/ML AMP ONE (23:04)
--- NOTE | 2022-08-21 00:13 | EDPHYS ---
Physician Documentation [facility] Name: Josie Lizarraga Age: 62 yrs Sex: Female : 1960 Arrival Date: 08/20/2022 Time: 19:26 Bed 7 Private MD: ED Physician Cole Tapia Historical: - Allergies: 08/20 19:47 Codeine; as6 - PMHx: 19:47 Hyperlipidemia; Hypothyroidism; Hypertension; CHF; Diabetes - IDDM; breast cancer; as6 - PSHx: 19:47 mass removal from left breast; as6 - Immunization history:: Client reports receiving the 2nd dose of the Covid vaccine, moderna Pneumococcal vaccine is not up to date, Flu vaccine is not up to date. - Social history:: Smoking status: Patient denies any tobacco usage or history of. Vital Signs: 19:43 BP 206 / 95; Pulse 84; Resp 18 S; Temp 97.7(TE); Pulse Ox 94% on R/A; Weight 82.1 kg as6 (R); Height 5 ft. 3 in. (R); Pain 5/10; 20:36 BP 186 / 82; Pulse 73; Resp 16; Pulse Ox 95% on R/A; kd3 21:04 BP 160 / 49; Pulse 74; Resp 19; Pulse Ox 99% on R/A; kd3 21:42 BP 180 / 78; Pulse 69; Resp 14; Pulse Ox 96% on R/A; kd3 22:08 BP 177 / 73; Pulse 96; Resp 19; Pulse Ox 100% on R/A; kd3 22:22 BP 163 / 75; Pulse 71; Resp 19; Pulse Ox 96% on R/A; kd3 23:13 Pulse 73; Resp 19; Pulse Ox 94% on R/A; kd3 23:53 BP 147 / 77; Pulse 78; Resp 19; Pulse Ox 92% on R/A; kd3 19:43 Body Mass Index 32.06 (82.10 kg, 160.02 cm) as6 19:43 Pain Scale: Adult as6 MDM: 19:49 Patient medically screened. cp 08/20 19:58 Order name: CT Head Brain wo Cont; Complete Time: 20:42 cp 08/20 20:42 Interpretation: Report reviewed. cp 08/20 20:01 Order name: Basic Metabolic Panel; Complete Time: 21:24 08/20 21:25 Interpretation: Normal except: GLUC 148; GFR 79. cp 08/20 20:01 Order name: CBC with Diff; Complete Time: 20:42 08/20 21:25 Interpretation: Normal except: HGB 11.8; HCT 32.9; GLENN% 85.6; LYM% 8.2; NEUT A 9.1. 08/20 20:01 Order name: LFT's; Complete Time: 21:24 08/20 21:25 Interpretation: Normal except: ALT 59. cp 08/20 20:01 Order name: Magnesium; Complete Time: 21:24 08/20 20:01 Order name: NT PRO-BNP; Complete Time: 21:24 08/20 21:25 Interpretation: Abnormal: NT PRO-BNP 1288. cp 08/20 20:01 Order name: PT-INR; Complete Time: 20:42 08/20 20:01 Order name: Troponin HS; Complete Time: 21:24 08/20 21:25 Interpretation: Troponin HS 6.9; Reviewed. 08/20 20:01 Order name: XRAY Chest (1 view); Complete Time: 20:42 08/20 20:01 Order name: EKG; Complete Time: 20:02 08/20 20:01 Order name: Cardiac monitoring; Complete Time: 20:46 08/20 20:01 Order name: EKG - Nurse/Tech; Complete Time: 20:01 08/20 20:01 Order name: IV Saline Lock; Complete Time: 20:16 08/20 20:01 Order name: Labs collected and sent; Complete Time: 20:16 08/20 20:01 Order name: O2 Per Protocol; Complete Time: 20:46 08/20 20:01 Order name: O2 Sat Monitoring; Complete Time: 20:46 08/20 21:27 Order name: Urine Dipstick-Ancillary (obtain specimen); Complete Time: 21:42 cp 08/20 21:27 Order name: Urine Microscopic Only; Complete Time: 22:01 cp 08/20 22:01 Interpretation: Normal except: URBC 5-10. cp 08/20 21:41 Order name: Urine Dipstick-Ancillary; Complete Time: 22:01 EDMS 08/20 22:01 Interpretation: Normal except: UPROT 2+. cp Administered Medications: 20:44 Drug: metoCLOPramide IVP 10 mg Route: IVP; Site: right antecubital; kd3 21:04 Follow up: Response: No adverse reaction kd3 21:04 Drug: cloNIDine PO 0.1 mg Route: PO; kd3 23:13 Follow up: Response: No adverse reaction; Blood pressure is lowered kd3 22:31 Drug: Ondansetron IVP 4 mg Route: IVP; Site: right antecubital; kd3 23:13 Follow up: Response: No adverse reaction; Nausea is decreased kd3 22:31 Drug: NS 0.9% IV 250 ml Route: IV; Rate: bolus; Site: right antecubital; kd3 23:12 Drug: Promethazine IVP 12.5 mg Route: IVP; Site: right antecubital; kd3 23:13 Drug: Ativan IVP 0.5 mg Route: IVP; Site: right antecubital; kd3 Disposition Summary: 08/21/22 00:12 Discharge Ordered Location: Home cp Problem: new cp Symptoms: have improved cp Condition: Stable cp Diagnosis - Hypertensive heart disease with heart failure cp - Headache cp - Nausea with vomiting, unspecified cp Followup: cp - With: Private Physician - When: 2 - 3 days - Reason: Recheck today's complaints Forms: - Medication Reconciliation Form cp - Thank You Letter cp - Antibiotic Education cp - Prescription Opioid Use cp Signatures: Dispatcher [employer] EDWI Gonzales Ng PA PA cp Slawson, Ashby RN RN as6 Roz Perez RN RN kd3
--- NOTE | 2022-08-21 00:13 | ER ---
Nurse's Notes [facility] Name: Josie Lizarraga Age: 62 yrs Sex: Female : 1960 Arrival Date: 08/20/2022 Time: 19:26 Bed 7 Private MD: Diagnosis: Hypertensive heart disease with heart failure;Headache;Nausea with vomiting, unspecified Presentation: 08/20 19:43 Chief complaint: Patient states: "I've been having high blood pressure for months and I as6 have this bad headache. People have been telling me I need to get it checked.". Coronavirus screen: At this time, the client does not indicate any symptoms associated with coronavirus-19. Ebola Screen: No symptoms or risks identified at this time. Initial Sepsis Screen: Does the patient meet any 2 criteria? No. Patient's initial sepsis screen is negative. Does the patient have a suspected source of infection? No. Patient's initial sepsis screen is negative. Risk Assessment: Do you want to hurt yourself or someone else? Patient reports no desire to harm self or others. Onset of symptoms is unknown. 19:43 Method Of Arrival: Ambulatory as6 19:43 Acuity: FRACISCO 2 as6 Triage Assessment: 19:55 General: Appears in no apparent distress. Behavior is calm, cooperative. Pain: as6 Complains of pain in head. Neuro: Reports headache. GI: Reports nausea. Historical: - Allergies: 19:47 Codeine; as6 - PMHx: 19:47 Hyperlipidemia; Hypothyroidism; Hypertension; CHF; Diabetes - IDDM; breast cancer; as6 - PSHx: 19:47 mass removal from left breast; as6 - Immunization history:: Client reports receiving the 2nd dose of the Covid vaccine, moderna Pneumococcal vaccine is not up to date, Flu vaccine is not up to date. - Social history:: Smoking status: Patient denies any tobacco usage or history of. Screenin:46 [facility] ED Fall Risk Assessment (Adult) History of falling in the last 3 months, kd3 including since admission No falls in past 3 months (0 pts) Confusion or Disorientation No (0 pts) Intoxicated or Sedated No (0 pts) Impaired Gait No (0 pts) Mobility Assist Device Used No (0 pt) Altered Elimination No (0 pt) Score/Fall Risk Level 0 - 2 = Low Risk Maintained a safe environment. Abuse screen: Denies threats or abuse. Denies injuries from another. Nutritional screening: No deficits noted. Tuberculosis screening: No symptoms or risk factors identified. Assessment: 20:47 GI: Abdomen is non-distended. kd3 23:53 General: Appears in no apparent distress. Behavior is calm, cooperative. General: kd3 nausea, vomiting and headache improved. Pt seen resting comfortably in bed, eyes closed. Pt states "i am feeling better, i fell asleep". . Neuro: Level of Consciousness is awake, alert, obeys commands, Oriented to person, place, time, situation. Cardiovascular: Patient's skin is warm and dry. Respiratory: Airway is patent Trachea midline Respiratory effort is even, unlabored, Respiratory pattern is regular, symmetrical. Vital Signs: 19:43 BP 206 / 95; Pulse 84; Resp 18 S; Temp 97.7(TE); Pulse Ox 94% on R/A; Weight 82.1 kg as6 (R); Height 5 ft. 3 in. (R); Pain 5/10; 20:36 BP 186 / 82; Pulse 73; Resp 16; Pulse Ox 95% on R/A; kd3 21:04 BP 160 / 49; Pulse 74; Resp 19; Pulse Ox 99% on R/A; kd3 21:42 BP 180 / 78; Pulse 69; Resp 14; Pulse Ox 96% on R/A; kd3 22:08 BP 177 / 73; Pulse 96; Resp 19; Pulse Ox 100% on R/A; kd3 22:22 BP 163 / 75; Pulse 71; Resp 19; Pulse Ox 96% on R/A; kd3 23:13 Pulse 73; Resp 19; Pulse Ox 94% on R/A; kd3 23:53 BP 147 / 77; Pulse 78; Resp 19; Pulse Ox 92% on R/A; kd3 19:43 Body Mass Index 32.06 (82.10 kg, 160.02 cm) as6 19:43 Pain Scale: Adult as6 ED Course: 19:26 Patient arrived in ED. rg4 19:43 Gonzales Ng PA is PHCP. cp 19:43 Cole Tapia MD is Attending Physician. cp 19:47 Triage completed. as6 19:49 Arm band placed on. as6 20:15 Inserted saline lock: 20 gauge in right antecubital area, using aseptic technique. as6 Blood collected. 20:22 Roz Perez, RN is Primary Nurse. kd3 20:26 CT Head Brain wo Cont In Process Unspecified. EDMS 20:30 XRAY Chest (1 view) In Process Unspecified. EDMS 21:42 Urine Microscopic Only Sent. kd3 23:14 Patient has correct armband on for positive identification. Placed in gown. Bed in low kd3 position. Administered Medications: 20:44 Drug: metoCLOPramide IVP 10 mg Route: IVP; Site: right antecubital; kd3 21:04 Follow up: Response: No adverse reaction kd3 21:04 Drug: cloNIDine PO 0.1 mg Route: PO; kd3 23:13 Follow up: Response: No adverse reaction; Blood pressure is lowered kd3 22:31 Drug: Ondansetron IVP 4 mg Route: IVP; Site: right antecubital; kd3 23:13 Follow up: Response: No adverse reaction; Nausea is decreased kd3 22:31 Drug: NS 0.9% IV 250 ml Route: IV; Rate: bolus; Site: right antecubital; kd3 23:12 Drug: Promethazine IVP 12.5 mg Route: IVP; Site: right antecubital; kd3 23:13 Drug: Ativan IVP 0.5 mg Route: IVP; Site: right antecubital; kd3 Outcome: 08/21 00:12 Discharge ordered by MD. ovalle Signatures: Dispatcher [employer] EDME Gonzales Ng PA PA cp Garcia, Rubi rg4 Earl Gaitan RN RN as6 Roz Perez, NADIA RN kd3
[2022-08-21 06:49] VITALS: TEMP 97.7
[2022-08-21 07:00] VITALS: BP 154/72; O2SAT 94
--- NOTE | 2022-08-21 13:21 | EKG ---
Test Date: 2022-08-20 Test Time: 19:58:14 [employer]: MEASUREMENT RESULTS: Intervals: Rate: 76 IL: 144 QRSD: 128 QT: 418 QTc: 470 Cache: P: 50 IL: 144 QRS: -3 T: 32 INTERPRETIVE STATEMENTS: Normal sinus rhythm Right bundle branch block Abnormal ECG Compared to ECG 02/25/2018 08:40:04 Right bundle-branch block now present Electronically Signed On 08-21-22 13:19:32 CDT by Lukasz Wyman
== END 2022-08-21 00:46 | disposition home or self-care (01) ==
LOC: ER 19:25
DX: I11.0 Hypertensive heart disease with heart failure (principal); I50.9 Heart failure, unspecified; R11.2 Nausea with vomiting, unspecified; I10 Essential (primary) hypertension; E11.9 Type 2 diabetes mellitus without complications; Z88.5 Allergy status to narcotic agent; Z85.3 Personal history of malignant neoplasm of breast
CPT/HCPCS: 93005; 85025; 80048; 36415; 83735; 85610; 80076; 84484; 83880; 70450; 71045; J2550; J2765; J2405; J7050; 81003; 81015